=== PATIENT | female | born 1945 | race African-American/Black ===

== ENCOUNTER 2018-03-30 11:23 | Inpatient (IN) | payer MEDICARE, MEDICAID ==
[~2018-03-30] VITALS: Ht 167.6 cm; Wt 105.4 kg
[2018-03-30] VITALS (24 sets, daily range): BP systolic 84–204; BP diastolic 52–131
[~2018-03-30 11:23] MED LIST: ALBUTEROL SULF8.5 GM INH; COUMADIN5 MG PO; COUMADIN7.5 MG PO; HYDROCHLOROTHIA50 MG PO; LOVASTATIN10 MG PO; NEURONTIN400 MG PO; OMEPRAZOLE20 MG PO; OXYBUTYNIN CHLOR5 MG PO; TENORMIN25 MG PO; TESSALON PERLE100 M2 ORAL; ZESTRIL20 MG PO; ZYLOPRIM100 MG PO
[2018-03-30] MEDS ORDERED: Solu-MEDROL 125mg Inj IVP ONE (11:30)
[2018-03-30] MEDS ORDERED: Sodium Chloride 500ML 500 ML IV ONE (11:30)
[2018-03-30] MEDS ORDERED: DiphenhydrAMINE 50mg/ml Inj IVP ONE (11:30)
[2018-03-30 12:13] LABS: BASOPHILS % (AUTO) 0.5 % (0.0-2.0); HEMATOCRIT 39.1 % (37.0-47.0); HEMOGLOBIN 12.7 G/DL (12.0-16.0); LYMPHOCYTES % (AUTO) 51.2 % (20.0-45.0); MEAN CORPUSCULAR VOLUME 91 FL (80-99); MONOCYTES % (AUTO) 5.7 % (1.0-10.0); NEUTROPHILS % (AUTO) 40.6 % (45.0-75.0); PLATELET COUNT 205 K/UL (150-450); RED BLOOD COUNT 4.28 M/UL (4.20-5.40); RED CELL DISTRIBUTION WIDTH 12.7 % (11.6-14.8); WHITE BLOOD COUNT 7.8 K/UL (4.8-10.8)
[2018-03-30 12:18] LABS: ANION GAP 7 mmol/L (5-15); BLOOD UREA NITROGEN 8 mg/dL (7-18); CALCIUM 8.8 MG/DL (8.5-10.1); CARBON DIOXIDE 30 MMOL/L (21-32); CHLORIDE 105 MMOL/L (98-107); CREATININE 0.6 MG/DL (0.55-1.30); POTASSIUM 3.6 MMOL/L (3.5-5.1); SODIUM 142 MMOL/L (136-145)
--- NOTE | 2018-03-30 12:21 | Diagnostic Imaging Report ---
Indication: Dyspnea Comparison: None A single view chest radiograph was obtained. Findings: No definite infiltrate or pulmonary vascular congestion identified. There is a right shoulder prosthesis noted. The heart is enlarged. The aorta is mildly enlarged consistent with atherosclerotic vascular disease. The bones are osteopenic. Impression: No acute disease
[2018-03-30 12:31] LABS: ALANINE AMINOTRANSFERASE 16 U/L (12-78); ALBUMIN 3.7 G/DL (3.4-5.0); ALKALINE PHOSPHATASE 48 U/L (46-116); ASPARTATE AMINO TRANSFERASE 17 U/L (15-37); BILIRUBIN,TOTAL 0.3 MG/DL (0.2-1.0); CKMB < 0.5 NG/ML (0.0-3.6); CREATINE KINASE 53 U/L (26-308)
[2018-03-30] MEDS ORDERED: Propofol 200mg/20ml IV ONE (12:42)
[2018-03-30] MEDS ORDERED: Labetalol 5mg/ml 20ml vial IV PRN (13:00)
[2018-03-30] MEDS ORDERED: LORazepam Inj 2mg/ml 1ml IV PRN (13:00)
--- NOTE | 2018-03-30 13:34 | Emergency Room Report ---
History of Present Illness General Chief Complaint: Allergic Reaction Source: Patient Present Illness HPI 72-year-old female presents ED complaining of tongue swelling. Brought in by EMS. Noted swelling in her tongue which started this morning. Denies any shortness of breath or throat swelling. Denies food or drug allergies. Patient states she takes lisinopril. Has taken it for many years. Denies chest pain or shortness of breath. No other aggravating relieving factors. Denies any other associated symptoms Allergies: Coded Allergies: SULFA (SULFONAMIDE ANTIBIOTICS) (Verified Allergy, Severe, Itching, ) Uncoded Allergies: SULFA (Allergy, Unknown, 03/30/18) Patient History Past Medical History: DM Past Surgical History: none Pertinent Family History: none Social History: Denies: smoking, alcohol use, drug use Now: No Immunizations: UTD Reviewed Nursing Documentation: PMH: Agreed; PSxH: Agreed Nursing Documentation-PMH Hx Cardiac Problems: Yes - A-FIB Hx Hypertension: Yes Hx Diabetes: Yes Review of Systems All Other Systems: negative except mentioned in HPI Physical Exam Vital Signs Date Time Temp Pulse Resp B/P (MAP) Pulse Ox O2 Delivery O2 Flow Rate FiO2 03/30/18 11:06 98.5 56 12 190/116 97 Room Air 98.4 03/30/18 12:37 60 Sp02 EP Interpretation: reviewed, normal General Appearance: no apparent distress, alert, GCS 15, non-toxic, obese Head: normocephalic, atraumatic Eyes: bilateral eye normal inspection, bilateral eye PERRL ENT: hearing grossly normal, normal pharynx, no angioedema, normal voice, TMs + canals normal, other - large tongue Neck: full range of motion, supple/symm/no masses, other - no stridor Respiratory: chest non-tender, lungs clear, normal breath sounds, speaking full sentences Cardiovascular #1: regular rate, rhythm, no edema Cardiovascular #2: 2+ carotid (R), 2+ carotid (L), 2+ radial (R), 2+ radial (L) , 2+ dorsalis pedis (R), 2+ dorsalis pedis (L) Gastrointestinal: normal bowel sounds, non tender, soft, non-distended, no guarding, no rebound Rectal: deferred Genitourinary: normal inspection, no CVA tenderness Musculoskeletal: back normal, gait/station normal, normal range of motion, non- tender Neurologic: alert, oriented x3, responsive, motor strength/tone normal, sensory intact, speech normal Psychiatric: judgement/insight normal, memory normal, mood/affect normal, no suicidal/homicidal ideation Reflexes: 3+ bicep (R), 3+ bicep (L), 3+ tricep (R), 3+ tricep (L), 3+ knee (R) , 3+ knee (L) Skin: normal color, no rash, warm/dry, well hydrated Lymphatic: no adenopathy Procedures Critical Care Time Critical Care Time i. I feel this is a highly complex case requiring extensive working including EKG/Rhythm strip, Xray/CT/US, Blood/urine lab work, repeat exams while in ED, and administration of strong opiates/narcotics for pain control, admission to hospital or close patient follow up. Total time: 30 min bedside evaluation and treatment excludes procedures (EKG). Reason for critical care: angioedema Possible complications: hypotension, hypertension, TN, shock, arrhythmias, metabolic acidosis, end organ damage, respiratory failure. Interventions: labs, ekg, cxr. benedryl. solumedrol. intubatinon. propofol. FFP Course: Patient presenting with tongue swelling. History of lisinopril. No food allergies. Tongue is enlarged. Concern for airway compromise. Decision made with daughter to preemptively intubate the patient. Given RSI meds. Intubated using glidescope. Sedated with propofol. FFP ordered Consultations: nursing staff, EMS, family Performed by: Dr Reed Tolerated well condition = critical j. because of unstable vital signs this patient had a condition that could potentially threaten life or limb. I feel this is a critical patient who required my full attention while patient was considered critical. Total Critical Care Time excluding procedures was greater than 35 minutes Intubation Intubation : Consent: Written Intubation Method: orotracheal Tube Size (cm): 7.5 Medications: Etomidate, Succinylcholine Breath Sounds after Intubation: equal Intubation Complications: no complications Post Intubation Xray: Yes Attempts: One Patient Tolerated: Well Complications: None Medical Decision Making Diagnostic Impression: Primary Impression: Angioedema Qualified Codes: T78.3XXA - Angioneurotic edema, initial encounter ER Course Hospital Course 72 -year-old F presents to ED complaining of tongue swelling. History of hypertension-taking lisinoprio Differential diagnoses include: allergic reaction, angioedema Clinical course Patient placed on stretcher. security monitor. After initial history and physical, I ordered Solu-Medrol, Benadryl, pepcid, IV fluids Labs reviewed - electrolytes okay, no leukocytosis, hemoglobin/hematocrit okay Tongue is incredibly swollen. Concern for airway compromise. Discussed with daughter and patient for elective intubation and they agreed. Patient intubated without complication. propofol given for sedation FFP ordered. case discussed with Dr. Lopez/ Biswas and he agreed to admit the patient to his service for further care and support i. I feel this is a highly complex case requiring extensive working including EKG/Rhythm strip, Xray/CT/US, Blood/urine lab work, repeat exams while in ED, and administration of strong opiates/narcotics for pain control, admission to hospital or close patient follow up. Diagnosis - angioedema admitted to ICU in critical condition Labs Test 03/30/18 11:30 White Blood Count 7.8 K/UL (4.8-10.8) Red Blood Count 4.28 M/UL (4.20-5.40) Hemoglobin 12.7 G/DL (12.0-16.0) Hematocrit 39.1 % (37.0-47.0) Mean Corpuscular Volume 91 FL (80-99) Mean Corpuscular Hemoglobin 29.6 PG (27.0-31.0) Mean Corpuscular Hemoglobin Concent 32.4 G/DL (32.0-36.0) Red Cell Distribution Width 12.7 % (11.6-14.8) Platelet Count 205 K/UL (150-450) Mean Platelet Volume 8.6 FL (6.5-10.1) Neutrophils (%) (Auto) 40.6 % (45.0-75.0) Lymphocytes (%) (Auto) 51.2 % (20.0-45.0) Monocytes (%) (Auto) 5.7 % (1.0-10.0) Eosinophils (%) (Auto) 2.0 % (0.0-3.0) Basophils (%) (Auto) 0.5 % (0.0-2.0) Prothrombin Time 10.6 SEC (9.30-11.50) Prothromb Time International Ratio 1.0 (0.9-1.1) Activated Partial Thromboplast Time 22 SEC (23-33) Sodium Level 142 MMOL/L (136-145) Potassium Level 3.6 MMOL/L (3.5-5.1) Chloride Level 105 MMOL/L (98-107) Carbon Dioxide Level 30 MMOL/L (21-32) Anion Gap 7 mmol/L (5-15) Blood Urea Nitrogen 8 mg/dL (7-18) Creatinine 0.6 MG/DL (0.55-1.30) Estimat Glomerular Filtration Rate mL/min (>60) Glucose Level 112 MG/DL (74-106) Calcium Level 8.8 MG/DL (8.5-10.1) Total Bilirubin 0.3 MG/DL (0.2-1.0) Aspartate Amino Transf (AST/SGOT) 17 U/L (15-37) Alanine Aminotransferase (ALT/SGPT) 16 U/L (12-78) Alkaline Phosphatase 48 U/L (46-116) Total Creatine Kinase 53 U/L (26-308) Creatine Kinase MB < 0.5 NG/ML (0.0-3.6) Creatine Kinase MB Relative Index 0.9 Troponin I 0.000 ng/mL (0.000-0.056) Total Protein 7.3 G/DL (6.4-8.2) Albumin 3.7 G/DL (3.4-5.0) Globulin 3.6 g/dL Albumin/Globulin Ratio 1.0 (1.0-2.7) EKG Diagnostic Results Rate: normal Rhythm: NSR ST Segments: no acute changes ASA given to the pt in ED: No Rhythm Strip Diag. Results EP Interpretation: yes Rhythm: NSR, no PVC's, no ectopy Chest X-Ray Diagnostic Results Chest X-Ray Diagnostic Results : Chest X-Ray Ordered: Yes # of Views/Limited/Complete: 1 View Indication: Shortness of Breath EP Interpretation: Yes Interpretation: no consolidation, no effusion, no pneumothorax, no acute cardiopulmonary disease Impression: No acute disease Electronically Signed by: Electronically signed by Pancho Reed MD Last Vital Signs Date Time Temp Pulse Resp B/P (MAP) Pulse Ox O2 Delivery O2 Flow Rate FiO2 03/30/18 13:12 20 115/93 03/30/18 12:37 180 60 03/30/18 11:24 98.4 97 Room Air 98.4 Status: improved Disposition: ADMITTED INPATIENT Condition: Critical Referrals: NOT CHOSEN IPA/,REFERRING (PCP) Pancho Reed MD Mar 30, 2018 13:34
[2018-03-30] MEDS ORDERED: Enoxaparin 40mg Inj SUBQ SCH (16:00)
[2018-03-30] MEDS: D5NS 1,000 ML IV SCH (16:00)
[2018-03-30] MEDS: LORazepam Inj 2mg/ml 1ml IV PRN (16:05)
--- NOTE | 2018-03-30 17:45 | History and Physical Report ---
DATE OF ADMISSION: 03/30/2018 REASON FOR ADMISSION: 1. Respiratory failure. 2. Angioedema. HISTORY OF PRESENT ILLNESS: The patient is a 72-year-old female who was brought to the emergency room for further evaluation and care, have difficulty breathing with a swollen tongue. Emergently, the ED physician spoke to the family and due to progressive angioedema, the patient was intubated for airway protection and lisinopril discontinued. She was given anti-inflammatory, methylprednisolone along with Benadryl. She is currently mechanically ventilated and no other history could be obtained. Family currently is not at bedside. ALLERGIES: 1. Sulfa. 2. YAYA inhibitors. PAST MEDICAL HISTORY: 1. Obesity. 2. Hypertension. 3. Hyperlipidemia. 4. Neuropathy. 5. GERD. FAMILY HISTORY: Cannot obtain, as the patient is intubated on mechanical ventilation. PAST SURGICAL HISTORY: Cannot obtain as the patient intubated, sedated on mechanical ventilation. HOME MEDICATIONS: Reviewed on medicine reconciliation list. LABORATORY AND DIAGNOSTIC DATA: Labs dated 03/30/2018, white cell count 7.8, hemoglobin 12.7, and platelet count 205. Sodium 142, potassium 3.6, BUN 8, and creatinine 0.6. AST and ALT 17 and 16 respectively. Creatine kinase of 53. Troponin of 0. INR 1.0. PHYSICAL EXAMINATION: VITAL SIGNS: Blood pressure 181/66, respiratory rate 18, pulse 59, and temperature 98.4 degrees. GENERAL: The patient intubated, sedated on mechanical ventilation. HEENT: Conjugate eye gaze. No lymphadenopathy. CARDIOVASCULAR: S1 and S2. No rubs or gallops. PULMONARY: Clear to auscultation bilaterally with upper rhonchi. ABDOMEN: Obese, nondistended and nontender. EXTREMITIES: No edema. Fair pedal pulses. ASSESSMENT AND PLAN: 1. Respiratory failure secondary to angioedema, could be from allergic reaction to YAYA inhibitor. Lisinopril has been discontinued. We will continue Solu-Medrol. The patient intubated on mechanical ventilation to be managed by Dr. Huff, pulmonary Critical Care. 2. Hypertension. We will continue home dose medications while discontinuing lisinopril. We will also add IV and p.o. p.r.n. antihypertensive medications as required. 3. Hyperlipidemia. Continue statin. 4. DVT prophylaxis with Lovenox subcutaneous. At this time, the patient has an INR of 1, but on the medicine reconciliation list, the patient was on Coumadin. We will have to investigate whether or not the patient was on Coumadin chronically and if so why she had not been taking her Coumadin as of late, as her INR was 1.0. Vladimirjoe Biswas MD DR: KATIE JOB#: [id number] CC:
[2018-03-30] MEDS: Solu-MEDROL 40mg Inj IVP SCH (18:32)
[2018-03-30] MEDS ORDERED: Heparin 25,000u/D5W 500ml 500 ML IV SCH ×2 (19:30)
[2018-03-30] MEDS ORDERED: Heparin 5000 units/ml inj IV ONE (19:30)
--- NOTE | 2018-03-30 20:32 | Pulmonolgy Critical Care Note ---
Critical Care - Asmt/Plan Problems: (1) Angioedema (2) Acute respiratory failure (3) Longstanding persistent atrial fibrillation Respiratory: monitor respiratory rate, adjust FIO2 - Inc PEEP to 5, titrate down FiO2, ABG, weaning trial - SBT in am, will check for cuff leak, other - SM 40 IV q6, Fomotidine 20 BID, monitor airway and leak test in am, check C3/C4/ C1ei Cardiac: continue to monitor HR/BP, other - Hold ACei, continue HCTz & BB, IVUH /coumadin bridge Renal: F/U I&O, keep IV fluid, check electrolytes Infectious Disease: other - observe off Abx for signs of a respiratory infection Endocrine: monitor blood sugar Neurologic: keep patient comfortable - Fent gtt RASS -2, PRN VErsed Prophylaxis: Heparin, other - Famotidine Disposition: keep in ICU Notes Reviewed: clerical adjudicator, renal Discussed with: nurses, consultants Critical Care - Objective Last 24 Hour Vital Signs Date Time Temp Pulse Resp B/P (MAP) Pulse Ox O2 Delivery O2 Flow Rate FiO2 03/30/18 19:26 91 15 40 03/30/18 19:00 89 14 120/59 (79) 100 03/30/18 19:00 18 03/30/18 18:43 19 03/30/18 18:30 96 19 106/52 (70) 100 03/30/18 18:00 91 14 84/52 (63) 100 03/30/18 17:50 93 15 60 03/30/18 17:00 93 14 106/67 (80) 100 03/30/18 16:26 14 106/67 (80) 03/30/18 16:00 88 14 97/84 (88) 96 03/30/18 15:29 83 14 60 03/30/18 15:27 Mechanical Ventilator 03/30/18 15:00 60 03/30/18 15:00 98.8 86 14 97/84 (88) 96 98.8 03/30/18 15:00 78 03/30/18 14:01 18 171/111 03/30/18 14:01 98.6 87 18 171/111 100 Mechanical Ventilator 100 98.6 03/30/18 13:56 18 171/111 03/30/18 13:46 98.6 87 17 153/82 100 Mechanical Ventilator 100 98.6 03/30/18 13:46 17 153/82 03/30/18 13:41 17 153/82 03/30/18 13:40 98.6 74 14 171/111 100 Mechanical Ventilator 100 03/30/18 13:31 98.4 86 18 125/93 100 Endotracheal Tube 100 98.4 03/30/18 13:31 18 125/93 03/30/18 13:26 18 125/93 03/30/18 13:20 98.4 84 17 143/68 100 Endotracheal Tube 60 98.4 03/30/18 13:16 98.4 84 14 115/93 100 Mechanical Ventilator 100 98.4 03/30/18 13:16 14 115/93 03/30/18 13:12 20 115/93 03/30/18 13:11 20 115/93 03/30/18 13:01 98.4 75 14 159/91 100 Mechanical Ventilator 100 98.4 03/30/18 13:01 14 159/91 03/30/18 12:56 14 159/91 03/30/18 12:41 18 181/166 03/30/18 12:37 108 18 60 03/30/18 12:30 100 03/30/18 12:20 100 14 191/131 100 Mechanical Ventilator 100 03/30/18 12:15 98.4 72 12 168/80 94 Room Air 98.4 03/30/18 11:24 98.4 59 12 204/80 97 Room Air 98.4 03/30/18 11:06 98.5 56 12 190/116 97 Room Air 98.4 Status: awake, other - intubated Condition: improving HEENT: atraumatic, normocephalic Lungs: clear Heart: HR/BP stable Abdomen: soft, non-tender, active bowel sounds Extremities: no C/C/E Critical Care - Subjective ROS Limited/Unobtainable: Yes ICU Day: 1 Intubation Day: 1 Interval Events: 72 F h/o HTN, pAF on A/C, ACEi use BIB EMS with tongue swelling & angioedema, intubated in ER, transferred to ICU in stable condition. Stable on vent. Awake on Fentanyl gtt. Denies any distress. Condition: improving IV Access: peripheral EKG Rhythm: Sinus Rhythm FI02: 40 Vent Support Breath Rate: 14 Vent Support Mode: AC Vent Tidal Volume: 550 Sputum Amount: Scant PIP: 24 Fluids: D5NS@75 Subjective: Intubated, awake, denies complaints ET-Tube: 7.5 ET Position: 22 Labs: Laboratory Tests Test 03/30/18 11:30 03/30/18 15:44 White Blood Count 7.8 K/UL (4.8-10.8) Red Blood Count 4.28 M/UL (4.20-5.40) Hemoglobin 12.7 G/DL (12.0-16.0) Hematocrit 39.1 % (37.0-47.0) Mean Corpuscular Volume 91 FL (80-99) Mean Corpuscular Hemoglobin 29.6 PG (27.0-31.0) Mean Corpuscular Hemoglobin Concent 32.4 G/DL (32.0-36.0) Red Cell Distribution Width 12.7 % (11.6-14.8) Platelet Count 205 K/UL (150-450) Mean Platelet Volume 8.6 FL (6.5-10.1) Neutrophils (%) (Auto) 40.6 % (45.0-75.0) L Lymphocytes (%) (Auto) 51.2 % (20.0-45.0) H Monocytes (%) (Auto) 5.7 % (1.0-10.0) Eosinophils (%) (Auto) 2.0 % (0.0-3.0) Basophils (%) (Auto) 0.5 % (0.0-2.0) Prothrombin Time 10.6 SEC (9.30-11.50) Prothromb Time International Ratio 1.0 (0.9-1.1) Activated Partial Thromboplast Time 22 SEC (23-33) L Sodium Level 142 MMOL/L (136-145) Potassium Level 3.6 MMOL/L (3.5-5.1) Chloride Level 105 MMOL/L (98-107) Carbon Dioxide Level 30 MMOL/L (21-32) Anion Gap 7 mmol/L (5-15) Blood Urea Nitrogen 8 mg/dL (7-18) Creatinine 0.6 MG/DL (0.55-1.30) Estimat Glomerular Filtration Rate mL/min (>60) Glucose Level 112 MG/DL (74-106) H Calcium Level 8.8 MG/DL (8.5-10.1) Total Bilirubin 0.3 MG/DL (0.2-1.0) Aspartate Amino Transf (AST/SGOT) 17 U/L (15-37) Alanine Aminotransferase (ALT/SGPT) 16 U/L (12-78) Alkaline Phosphatase 48 U/L (46-116) Total Creatine Kinase 53 U/L (26-308) Creatine Kinase MB < 0.5 NG/ML (0.0-3.6) Creatine Kinase MB Relative Index 0.9 Troponin I 0.000 ng/mL (0.000-0.056) Total Protein 7.3 G/DL (6.4-8.2) Albumin 3.7 G/DL (3.4-5.0) Globulin 3.6 g/dL Albumin/Globulin Ratio 1.0 (1.0-2.7) Triglycerides Level 144 MG/DL (30-150) Arterial Blood pH 7.436 (7.350-7.450) Arterial Blood Partial Pressure CO2 41.5 mmHg (35.0-45.0) Arterial Blood Partial Pressure O2 251.2 mmHg (75.0-100.0) H Arterial Blood HCO3 27.3 mmol/L (22.0-26.0) H Arterial Blood Oxygen Saturation 99.4 % (92.0-98.0) H Arterial Blood Base Excess 2.8 Jacobo Test Positive Alfonso Huff MD Mar 30, 2018 20:32
[2018-03-30] MEDS: Atorvastatin 20mg tab ORAL SCH (21:57)
--- NOTE | 2018-03-30 23:25 | Diagnostic Imaging Report ---
PROCEDURE: FILM ABDOMEN HISTORY: 72-year-old female with tube placement. COMPARISON: None TECHNIQUE: Frontal view of the abdomen was obtained. FINDINGS: Limited by positioning. Presumed esophageal catheter overlies the expected location of the stomach. 2 catheters overlie the right upper quadrant. Air-distended small and large bowel loops are likely due to ileus. Degenerative changes of the spine and hips. IMPRESSION: Presumed esophageal catheter overlies the expected location of the stomach. Air-distended small and large bowel loops are likely due to ileus.
[2018-03-31] VITALS (32 sets, daily range): BP systolic 99–175; BP diastolic 25–108
[2018-03-31] MEDS: Solu-MEDROL 40mg Inj IVP SCH ×4 (00:30→16:56)
[2018-03-31] MEDS: D5NS 1,000 ML IV SCH ×2 (04:17→16:57)
[2018-03-31] MEDS: Heparin 25,000u/D5W 500ml 500 ML IV SCH ×3 (05:25→12:48)
[2018-03-31 06:00] LABS: HEMATOCRIT 36.7 % (37.0-47.0); MEAN CORPUSCULAR VOLUME 90 FL (80-99); PLATELET COUNT 203 K/UL (150-450); RED BLOOD COUNT 4.08 M/UL (4.20-5.40); RED CELL DISTRIBUTION WIDTH 12.2 % (11.6-14.8); WHITE BLOOD COUNT 12.9 K/UL (4.8-10.8)
[2018-03-31 06:13] LABS: ANION GAP 9 mmol/L (5-15); BLOOD UREA NITROGEN 11 mg/dL (7-18); CARBON DIOXIDE 27 MMOL/L (21-32); CHLORIDE 106 MMOL/L (98-107); CREATININE 0.7 MG/DL (0.55-1.30); POTASSIUM 3.3 MMOL/L (3.5-5.1); SODIUM 142 MMOL/L (136-145)
--- NOTE | 2018-03-31 07:54 | Nephrology Progress Note ---
Assessment/Plan Assessment/Plan 1. Resp Failure - angioedema from YAYA-I - YAYA-I stopped, steroids - much improved. Likley to be extubated today 2. Chronic AFib with RVR- restart coumadin. On heaprin gtt 3. HTN- stable 4. DVT Prophylaxsis- on anticoagulation Subjective Date patient seen: Mar 31, 2018 Time patient seen: 07:51 ROS Limited/Unobtainable: No Allergies: Coded Allergies: SULFA (SULFONAMIDE ANTIBIOTICS) (Verified Allergy, Severe, Itching, ) Uncoded Allergies: SULFA (Allergy, Unknown, 03/30/18) All Systems: reviewed and negative except above Subjective Patient awake and tongue much less swollen Objective Last 24 Hour Vital Signs Date Time Temp Pulse Resp B/P (MAP) Pulse Ox O2 Delivery O2 Flow Rate FiO2 03/31/18 06:40 60 14 30 03/31/18 06:30 56 14 151/75 (100) 99 03/31/18 06:00 49 14 132/71 (91) 99 03/31/18 06:00 14 03/31/18 05:30 51 15 132/71 (91) 99 03/31/18 05:14 62 15 30 03/31/18 05:00 58 14 132/71 (91) 98 03/31/18 05:00 14 03/31/18 04:30 56 14 127/71 (89) 98 03/31/18 04:00 Mechanical Ventilator 03/31/18 04:00 50 03/31/18 04:00 17 03/31/18 04:00 98.4 68 16 140/105 (117) 98 98.4 03/31/18 04:00 30 03/31/18 03:30 64 16 132/96 (108) 99 03/31/18 03:16 86 14 30 03/31/18 03:00 78 16 135/72 (93) 99 03/31/18 03:00 14 03/31/18 02:30 63 14 135/66 (89) 99 03/31/18 02:00 68 14 154/88 (110) 98 03/31/18 02:00 15 03/31/18 01:30 75 14 135/66 (89) 99 03/31/18 01:00 64 14 137/71 (93) 98 03/31/18 01:00 14 03/31/18 00:35 82 14 30 03/31/18 00:30 59 14 101/75 (84) 99 03/31/18 00:26 14 18 00:00 61 03/31/18 00:00 98.0 66 14 117/63 (81) 98 98.0 03/31/18 00:00 14 03/31/18 00:00 Mechanical Ventilator 03/31/18 00:00 30 03/30/18 23:00 59 14 119/54 (75) 99 18 23:00 14 03/30/18 22:56 59 14 30 03/30/18 22:30 56 14 108/57 (74) 99 03/30/18 22:00 63 14 118/54 (75) 99 18 22:00 14 03/30/18 21:30 79 14 127/62 (83) 98 03/30/18 21:16 61 14 30 03/30/18 21:00 79 17 135/88 (104) 100 03/30/18 21:00 17 03/30/18 20:30 78 14 131/79 (96) 99 18 20:00 100.4 86 15 120/59 (79) 99 100.4 03/30/18 20:00 86 03/30/18 20:00 30 03/30/18 20:00 Mechanical Ventilator 03/30/18 20:00 15 18 19:30 94 14 120/59 (79) 99 03/30/18 19:26 91 15 40 03/30/18 19:00 89 14 120/59 (79) 100 18 19:00 18 18 18:43 19 18 18:30 96 19 106/52 (70) 100 7/18 18:00 91 14 84/52 (63) 100 03/30/18 17:50 93 15 60 18 17:00 93 14 106/67 (80) 100 18 16:26 14 106/67 (80) 18 16:00 88 14 97/84 (88) 96 18 15:29 83 14 60 18 15:27 Mechanical Ventilator 03/30/18 15:00 60 7/6/18 15:00 98.8 86 14 97/84 (88) 96 98.8 03/30/18 15:00 78 03/30/18 14:01 18 171/111 03/30/18 14:01 98.6 87 18 171/111 100 Mechanical Ventilator 100 98.6 03/30/18 13:56 18 171/111 03/30/18 13:46 98.6 87 17 153/82 100 Mechanical Ventilator 100 98.6 03/30/18 13:46 17 153/82 18 13:41 17 153/82 18 13:40 98.6 74 14 171/111 100 Mechanical Ventilator 100 03/30/18 13:31 98.4 86 18 125/93 100 Endotracheal Tube 100 98.4 03/30/18 13:31 18 125/93 03/30/18 13:26 18 125/93 03/30/18 13:20 98.4 84 17 143/68 100 Endotracheal Tube 60 98.4 03/30/18 13:16 98.4 84 14 115/93 100 Mechanical Ventilator 100 98.4 03/30/18 13:16 14 115/93 03/30/18 13:12 20 115/93 03/30/18 13:11 20 115/93 03/30/18 13:01 98.4 75 14 159/91 100 Mechanical Ventilator 100 98.4 03/30/18 13:01 14 159/91 03/30/18 12:56 14 159/91 03/30/18 12:41 18 181/166 03/30/18 12:37 108 18 60 03/30/18 12:30 100 03/30/18 12:20 100 14 191/131 100 Mechanical Ventilator 100 03/30/18 12:15 98.4 72 12 168/80 94 Room Air 98.4 03/30/18 11:24 98.4 59 12 204/80 97 Room Air 98.4 03/30/18 11:06 98.5 56 12 190/116 97 Room Air 98.4 Intake and Output 03/30/18 03/31/18 19:00 07:00 Intake Total 775 ml 1149.047 ml Output Total 0 ml Balance 775 ml 1149.047 ml Intake Oral 0 ml 0 ml IV Total 735 ml 1119.047 ml Other 40 ml 30 ml Output Urine Total 0 ml # Voids 2 Laboratory Tests 03/30/18 11:30: White Blood Count 7.8, Red Blood Count 4.28, Hemoglobin 12.7, Hematocrit 39.1, Mean Corpuscular Volume 91, Mean Corpuscular Hemoglobin 29.6, Mean Corpuscular Hemoglobin Concent 32.4, Red Cell Distribution Width 12.7, Platelet Count 205, Mean Platelet Volume 8.6, Neutrophils (%) (Auto) 40.6L, Lymphocytes (%) (Auto) 51.2H, Monocytes (%) (Auto) 5.7, Eosinophils (%) (Auto) 2.0, Basophils (%) (Auto ) 0.5, Prothrombin Time 10.6, Prothromb Time International Ratio 1.0, Activated Partial Thromboplast Time 22L, Sodium Level 142, Potassium Level 3.6, Chloride Level 105, Carbon Dioxide Level 30, Anion Gap 7, Blood Urea Nitrogen 8, Creatinine 0.6, Estimat Glomerular Filtration Rate , Glucose Level 112H, Calcium Level 8.8, Total Bilirubin 0.3, Aspartate Amino Transf (AST/SGOT) 17, Alanine Aminotransferase (ALT/SGPT) 16, Alkaline Phosphatase 48, Total Creatine Kinase 53, Creatine Kinase MB < 0.5, Creatine Kinase MB Relative Index 0.9, Troponin I 0.000, Total Protein 7.3, Albumin 3.7, Globulin 3.6, Albumin/ Globulin Ratio 1.0, Triglycerides Level 144 03/30/18 15:44: Arterial Blood pH 7.436, Arterial Blood Partial Pressure CO2 41.5, Arterial Blood Partial Pressure O2 251.2H, Arterial Blood HCO3 27.3H, Arterial Blood Oxygen Saturation 99.4H, Arterial Blood Base Excess 2.8, Jacobo Test Positive 03/31/18 02:15: Activated Partial Thromboplast Time 143H, Circulating Immune Complexes [Pending] , Complement C2 [Pending], Complement C3 [Pending], Complement C4 [Pending], Total Complement (CH50) [Pending] 03/31/18 05:03: White Blood Count 12.9#H, Red Blood Count 4.08L, Hemoglobin 12.0, Hematocrit 36.7L, Mean Corpuscular Volume 90, Mean Corpuscular Hemoglobin 29.4, Mean Corpuscular Hemoglobin Concent 32.7, Red Cell Distribution Width 12.2, Platelet Count 203, Mean Platelet Volume 8.3, Neutrophils (%) (Auto) , Lymphocytes (%) ( Auto) , Monocytes (%) (Auto) , Eosinophils (%) (Auto) , Basophils (%) (Auto) , Sodium Level 142, Potassium Level 3.3L, Chloride Level 106, Carbon Dioxide Level 27, Anion Gap 9, Blood Urea Nitrogen 11, Creatinine 0.7, Estimat Glomerular Filtration Rate , Glucose Level 197H, Calcium Level 9.0, Neutrophils % (Manual) [Pending], Lymphocytes % (Manual) [Pending], Platelet Estimate [ Pending], Platelet Morphology [Pending] Height (Feet): 5 Height (Inches): 6.00 Weight (Pounds): 238 General Appearance: no apparent distress, alert EENT: normal ENT inspection Neck: normal alignment, supple Cardiovascular: normal rate, regular rhythm Respiratory/Chest: lungs clear, normal breath sounds Abdomen: non tender, soft Edema: no edema noted Arm (L), no edema noted Arm (R), no edema noted Leg (L), no edema noted Leg (R), no edema noted Pedal (L), no edema noted Pedal (R), no edema noted Generalized Vladimir Biswas M.D. Mar 31, 2018 07:54
--- NOTE | 2018-03-31 08:47 | Pulmonolgy Critical Care Note ---
Critical Care - Asmt/Plan Problems: (1) Angioedema (2) Acute respiratory failure (3) Longstanding persistent atrial fibrillation Respiratory: other - Continue ventilatory support, continue steroids @ current dose, continue famotodine, repeat cuff leak later today, extubate if passes Cardiac: continue to monitor HR/BP, other - pacer pads @ bedside, continue A/C , hold greta blocking agents, EP eval Renal: F/U I&O, check electrolytes Gastrointestinal: other - If unable to extubate later today will start feeds Neurologic: keep patient comfortable - Fent gtt, PRN Versed Prophylaxis: Heparin, other - Famotodine Disposition: keep in ICU Time Spent (Minutes): 40 Notes 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, 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 Discussed with: nurses, consultants Critical Care - Objective Last 24 Hour Vital Signs Date Time Temp Pulse Resp B/P (MAP) Pulse Ox O2 Delivery O2 Flow Rate FiO2 03/31/18 08:00 98.5 94 21 129/37 (67) 100 98.5 03/31/18 08:00 30 03/31/18 07:30 95 16 123/42 (69) 100 03/31/18 07:00 95 13 99/44 (62) 100 03/31/18 06:40 60 14 30 03/31/18 06:30 56 14 151/75 (100) 99 03/31/18 06:00 49 14 132/71 (91) 99 03/31/18 06:00 14 03/31/18 05:30 51 15 132/71 (91) 99 03/31/18 05:14 62 15 30 03/31/18 05:00 58 14 132/71 (91) 98 03/31/18 05:00 14 03/31/18 04:30 56 14 127/71 (89) 98 03/31/18 04:00 Mechanical Ventilator 03/31/18 04:00 50 03/31/18 04:00 17 03/31/18 04:00 98.4 68 16 140/105 (117) 98 98.4 03/31/18 04:00 30 03/31/18 03:30 64 16 132/96 (108) 99 03/31/18 03:16 86 14 30 03/31/18 03:00 78 16 135/72 (93) 99 03/31/18 03:00 14 7/7/18 02:30 63 14 135/66 (89) 99 18 02:00 68 14 154/88 (110) 98 03/31/18 02:00 15 03/31/18 01:30 75 14 135/66 (89) 99 18 01:00 64 14 137/71 (93) 98 03/31/18 01:00 14 03/31/18 00:35 82 14 30 03/31/18 00:30 59 14 101/75 (84) 99 03/31/18 00:26 14 03/31/18 00:00 61 03/31/18 00:00 98.0 66 14 117/63 (81) 98 98.0 03/31/18 00:00 14 03/31/18 00:00 Mechanical Ventilator 03/31/18 00:00 30 03/30/18 23:00 59 14 119/54 (75) 99 03/30/18 23:00 14 03/30/18 22:56 59 14 30 03/30/18 22:30 56 14 108/57 (74) 99 03/30/18 22:00 63 14 118/54 (75) 99 18 22:00 14 03/30/18 21:30 79 14 127/62 (83) 98 03/30/18 21:16 61 14 30 03/30/18 21:00 79 17 135/88 (104) 100 03/30/18 21:00 17 03/30/18 20:30 78 14 131/79 (96) 99 18 20:00 100.4 86 15 120/59 (79) 99 100.4 03/30/18 20:00 86 18 20:00 30 18 20:00 Mechanical Ventilator 03/30/18 20:00 15 18 19:30 94 14 120/59 (79) 99 18 19:26 91 15 40 18 19:00 89 14 120/59 (79) 100 03/30/18 19:00 18 18 18:43 19 18 18:30 96 19 106/52 (70) 100 18 18:00 91 14 84/52 (63) 100 18 17:50 93 15 60 7/6/18 17:00 93 14 106/67 (80) 100 18 16:26 14 106/67 (80) 18 16:00 88 14 97/84 (88) 96 18 15:29 83 14 60 18 15:27 Mechanical Ventilator 03/30/18 15:00 60 18 15:00 98.8 86 14 97/84 (88) 96 98.8 03/30/18 15:00 78 03/30/18 14:01 18 171/111 03/30/18 14:01 98.6 87 18 171/111 100 Mechanical Ventilator 100 98.6 03/30/18 13:56 18 171/111 03/30/18 13:46 98.6 87 17 153/82 100 Mechanical Ventilator 100 98.6 03/30/18 13:46 17 153/82 18 13:41 17 153/82 18 13:40 98.6 74 14 171/111 100 Mechanical Ventilator 100 03/30/18 13:31 98.4 86 18 125/93 100 Endotracheal Tube 100 98.4 03/30/18 13:31 18 125/93 18 13:26 18 125/93 18 13:20 98.4 84 17 143/68 100 Endotracheal Tube 60 98.4 03/30/18 13:16 98.4 84 14 115/93 100 Mechanical Ventilator 100 98.4 18 13:16 14 115/93 18 13:12 20 115/93 18 13:11 20 115/93 18 13:01 98.4 75 14 159/91 100 Mechanical Ventilator 100 98.4 03/30/18 13:01 14 159/91 18 12:56 14 159/91 18 12:41 18 181/166 03/30/18 12:37 108 18 60 03/30/18 12:30 100 03/30/18 12:20 100 14 191/131 100 Mechanical Ventilator 100 03/30/18 12:15 98.4 72 12 168/80 94 Room Air 98.4 03/30/18 11:24 98.4 59 12 204/80 97 Room Air 98.4 03/30/18 11:06 98.5 56 12 190/116 97 Room Air 98.4 Status: awake Condition: improving HEENT: atraumatic, normocephalic Lungs: clear Heart: HR/BP stable Abdomen: soft, non-tender, active bowel sounds Extremities: no C/C/E Critical Care - Subjective ROS Limited/Unobtainable: Yes ICU Day: 2 Intubation Day: 2 Interval Events: Doing well, no cuff leak Wants tube out Condition: improving IV Access: peripheral EKG Rhythm: Sinus Bradycardia FI02: 30 Vent Support Breath Rate: 14 Vent Support Mode: AC Vent Tidal Volume: 550 Sputum Amount: Small PEEP: 5.0 PIP: 28 Fluids: D5NS@75 Drips: Fent gtt I&O: Intake and Output 03/30/18 03/31/18 19:00 07:00 Intake Total 775 ml 1179.047 ml Output Total 0 ml Balance 775 ml 1179.047 ml Intake Oral 0 ml 0 ml IV Total 735 ml 1119.047 ml Other 40 ml 60 ml Output Urine Total 0 ml # Voids 2 Subjective: Intubated, awake, denies complaints ET-Tube: 7.5 ET Position: 24 Labs: Laboratory Tests Test 03/30/18 11:30 03/30/18 15:44 03/31/18 02:15 03/31/18 05:03 White Blood Count 7.8 K/UL (4.8-10.8) 12.9 K/UL (4.8-10.8) #H Red Blood Count 4.28 M/UL (4.20-5.40) 4.08 M/UL (4.20-5.40) L Hemoglobin 12.7 G/DL (12.0-16.0) 12.0 G/DL (12.0-16.0) Hematocrit 39.1 % (37.0-47.0) 36.7 % (37.0-47.0) L Mean Corpuscular Volume 91 FL (80-99) 90 FL (80-99) Mean Corpuscular Hemoglobin 29.6 PG (27.0-31.0) 29.4 PG (27.0-31.0) Mean Corpuscular Hemoglobin Concent 32.4 G/DL (32.0-36.0) 32.7 G/DL (32.0-36.0) Red Cell Distribution Width 12.7 % (11.6-14.8) 12.2 % (11.6-14.8) Platelet Count 205 K/UL (150-450) 203 K/UL (150-450) Mean Platelet Volume 8.6 FL (6.5-10.1) 8.3 FL (6.5-10.1) Neutrophils (%) (Auto) 40.6 % (45.0-75.0) L % (45.0-75.0) Lymphocytes (%) (Auto) 51.2 % (20.0-45.0) H % (20.0-45.0) Monocytes (%) (Auto) 5.7 % (1.0-10.0) % (1.0-10.0) Eosinophils (%) (Auto) 2.0 % (0.0-3.0) % (0.0-3.0) Basophils (%) (Auto) 0.5 % (0.0-2.0) % (0.0-2.0) Prothrombin Time 10.6 SEC (9.30-11.50) Prothromb Time International Ratio 1.0 (0.9-1.1) Activated Partial Thromboplast Time 22 SEC (23-33) L 143 SEC (23-33) H Sodium Level 142 MMOL/L (136-145) 142 MMOL/L (136-145) Potassium Level 3.6 MMOL/L (3.5-5.1) 3.3 MMOL/L (3.5-5.1) L Chloride Level 105 MMOL/L (98-107) 106 MMOL/L (98-107) Carbon Dioxide Level 30 MMOL/L (21-32) 27 MMOL/L (21-32) Anion Gap 7 mmol/L (5-15) 9 mmol/L (5-15) Blood Urea Nitrogen 8 mg/dL (7-18) 11 mg/dL (7-18) Creatinine 0.6 MG/DL (0.55-1.30) 0.7 MG/DL (0.55-1.30) Estimat Glomerular Filtration Rate mL/min (>60) mL/min (>60) Glucose Level 112 MG/DL (74-106) H 197 MG/DL (74-106) H Calcium Level 8.8 MG/DL (8.5-10.1) 9.0 MG/DL (8.5-10.1) Total Bilirubin 0.3 MG/DL (0.2-1.0) Aspartate Amino Transf (AST/SGOT) 17 U/L (15-37) Alanine Aminotransferase (ALT/SGPT) 16 U/L (12-78) Alkaline Phosphatase 48 U/L (46-116) Total Creatine Kinase 53 U/L (26-308) Creatine Kinase MB < 0.5 NG/ML (0.0-3.6) Creatine Kinase MB Relative Index 0.9 Troponin I 0.000 ng/mL (0.000-0.056) Total Protein 7.3 G/DL (6.4-8.2) Albumin 3.7 G/DL (3.4-5.0) Globulin 3.6 g/dL Albumin/Globulin Ratio 1.0 (1.0-2.7) Triglycerides Level 144 MG/DL (30-150) Arterial Blood pH 7.436 (7.350-7.450) Arterial Blood Partial Pressure CO2 41.5 mmHg (35.0-45.0) Arterial Blood Partial Pressure O2 251.2 mmHg (75.0-100.0) H Arterial Blood HCO3 27.3 mmol/L (22.0-26.0) H Arterial Blood Oxygen Saturation 99.4 % (92.0-98.0) H Arterial Blood Base Excess 2.8 Jacobo Test Positive Circulating Immune Complexes Pending Complement C2 Pending Complement C3 Pending Complement C4 Pending Total Complement (CH50) Pending Neutrophils % (Manual) Pending Lymphocytes % (Manual) Pending Platelet Estimate Pending Platelet Morphology Pending Alfonso Huff MD Mar 31, 2018 08:47
[2018-03-31] MEDS ORDERED: D5NS 1000ml IV ONE (08:58)
[2018-03-31] MEDS ORDERED: Enoxaparin 40mg Inj SUBQ SCH (09:00)
[2018-03-31] MEDS: Atenolol 25mg tab ORAL SCH (09:26)
[2018-03-31] MEDS: Allopurinol 100mg Tab ORAL SCH (09:26)
[2018-03-31] MEDS: LORazepam Inj 2mg/ml 1ml IV PRN ×2 (10:43→19:59)
--- NOTE | 2018-03-31 14:21 | Cardiac Electrophysiology PN ---
Subjective Subjective [id number] Objective Last 24 Hour Vital Signs Date Time Temp Pulse Resp B/P (MAP) Pulse Ox O2 Delivery O2 Flow Rate FiO2 03/31/18 12:00 100 03/31/18 12:00 73 03/31/18 12:00 Room Air 03/31/18 12:00 98.8 89 11 141/31 (67) 100 98.8 03/31/18 11:00 94 12 166/37 (80) 100 03/31/18 10:43 59 14 30 03/31/18 10:00 99 14 174/68 (103) 100 03/31/18 09:26 69 162/82 03/31/18 09:05 63 14 30 03/31/18 09:00 96 14 164/37 (79) 100 03/31/18 08:00 98.5 94 21 129/37 (67) 100 98.5 03/31/18 08:00 30 03/31/18 08:00 69 03/31/18 08:00 Mechanical Ventilator 03/31/18 07:30 95 16 123/42 (69) 100 03/31/18 07:00 95 13 99/44 (62) 100 03/31/18 06:40 60 14 30 03/31/18 06:30 56 14 151/75 (100) 99 03/31/18 06:00 49 14 132/71 (91) 99 03/31/18 06:00 14 03/31/18 05:30 51 15 132/71 (91) 99 03/31/18 05:14 62 15 30 03/31/18 05:00 58 14 132/71 (91) 98 03/31/18 05:00 14 03/31/18 04:30 56 14 127/71 (89) 98 03/31/18 04:00 Mechanical Ventilator 03/31/18 04:00 50 03/31/18 04:00 17 03/31/18 04:00 98.4 68 16 140/105 (117) 98 98.4 03/31/18 04:00 30 03/31/18 03:30 64 16 132/96 (108) 99 03/31/18 03:16 86 14 30 03/31/18 03:00 78 16 135/72 (93) 99 03/31/18 03:00 14 03/31/18 02:30 63 14 135/66 (89) 99 18 02:00 68 14 154/88 (110) 98 18 02:00 15 18 01:30 75 14 135/66 (89) 99 18 01:00 64 14 137/71 (93) 98 18 01:00 14 03/31/18 00:35 82 14 30 03/31/18 00:30 59 14 101/75 (84) 99 18 00:26 14 03/31/18 00:00 61 03/31/18 00:00 98.0 66 14 117/63 (81) 98 98.0 03/31/18 00:00 14 03/31/18 00:00 Mechanical Ventilator 03/31/18 00:00 30 03/30/18 23:00 59 14 119/54 (75) 99 03/30/18 23:00 14 03/30/18 22:56 59 14 30 03/30/18 22:30 56 14 108/57 (74) 99 18 22:00 63 14 118/54 (75) 99 03/30/18 22:00 14 03/30/18 21:30 79 14 127/62 (83) 98 18 21:16 61 14 30 03/30/18 21:00 79 17 135/88 (104) 100 03/30/18 21:00 17 18 20:30 78 14 131/79 (96) 99 03/30/18 20:00 100.4 86 15 120/59 (79) 99 100.4 18 20:00 86 18 20:00 30 18 20:00 Mechanical Ventilator 03/30/18 20:00 15 18 19:30 94 14 120/59 (79) 99 /6/18 19:26 91 15 40 7//18 19:00 89 14 120/59 (79) 100 7//18 19:00 18 7//18 18:43 19 7//18 18:30 96 19 106/52 (70) 100 7/6/18 18:00 91 14 84/52 (63) 100 03/30/18 17:50 93 15 60 /18 17:00 93 14 106/67 (80) 100 03/30/18 16:26 14 106/67 (80) 03/30/18 16:00 88 14 97/84 (88) 96 03/30/18 15:29 83 14 60 03/30/18 15:27 Mechanical Ventilator 03/30/18 15:00 60 03/30/18 15:00 98.8 86 14 97/84 (88) 96 98.8 03/30/18 15:00 78 Intake and Output 03/30/18 03/31/18 19:00 07:00 Intake Total 775 ml 1179.047 ml Output Total 0 ml Balance 775 ml 1179.047 ml Intake Oral 0 ml 0 ml IV Total 735 ml 1119.047 ml Other 40 ml 60 ml Output Urine Total 0 ml # Voids 2 Laboratory Tests Test 03/30/18 15:44 03/31/18 02:15 03/31/18 05:03 03/31/18 10:00 Arterial Blood pH 7.436 (7.350-7.450) Arterial Blood Partial Pressure CO2 41.5 mmHg (35.0-45.0) Arterial Blood Partial Pressure O2 251.2 mmHg (75.0-100.0) H Arterial Blood HCO3 27.3 mmol/L (22.0-26.0) H Arterial Blood Oxygen Saturation 99.4 % (92.0-98.0) H Arterial Blood Base Excess 2.8 Jacobo Test Positive Activated Partial Thromboplast Time 143 SEC (23-33) H > 150 SEC (23-33) *H Circulating Immune Complexes Pending Complement C2 Pending Complement C3 Pending Complement C4 Pending Total Complement (CH50) Pending White Blood Count 12.9 K/UL (4.8-10.8) #H Red Blood Count 4.08 M/UL (4.20-5.40) L Hemoglobin 12.0 G/DL (12.0-16.0) Hematocrit 36.7 % (37.0-47.0) L Mean Corpuscular Volume 90 FL (80-99) Mean Corpuscular Hemoglobin 29.4 PG (27.0-31.0) Mean Corpuscular Hemoglobin Concent 32.7 G/DL (32.0-36.0) Red Cell Distribution Width 12.2 % (11.6-14.8) Platelet Count 203 K/UL (150-450) Mean Platelet Volume 8.3 FL (6.5-10.1) Neutrophils (%) (Auto) % (45.0-75.0) Lymphocytes (%) (Auto) % (20.0-45.0) Monocytes (%) (Auto) % (1.0-10.0) Eosinophils (%) (Auto) % (0.0-3.0) Basophils (%) (Auto) % (0.0-2.0) Differential Total Cells Counted 100 Neutrophils % (Manual) 89 % (45-75) H Lymphocytes % (Manual) 7 % (20-45) L Monocytes % (Manual) 4 % (1-10) Eosinophils % (Manual) 0 % (0-3) Basophils % (Manual) 0 % (0-2) Band Neutrophils 0 % (0-8) Platelet Estimate Adequate Platelet Morphology Normal Red Blood Cell Morphology Normal Sodium Level 142 MMOL/L (136-145) Potassium Level 3.3 MMOL/L (3.5-5.1) L Chloride Level 106 MMOL/L (98-107) Carbon Dioxide Level 27 MMOL/L (21-32) Anion Gap 9 mmol/L (5-15) Blood Urea Nitrogen 11 mg/dL (7-18) Creatinine 0.7 MG/DL (0.55-1.30) Estimat Glomerular Filtration Rate mL/min (>60) Glucose Level 197 MG/DL (74-106) H Calcium Level 9.0 MG/DL (8.5-10.1) Arvin Chen MD Mar 31, 2018 14:21
--- NOTE | 2018-03-31 14:49 | Infectious Diseases Prog Note ---
Assessment/Plan Problems: (1) Angioedema Assessment & Plan: isolated rule out infectious etiology , will send blood culture and CRP/ESR , await complements level , avoid causes such as YAYA INH (2) Acute respiratory failure Assessment & Plan: due to the above , intubated , S/P self extubation , monitor CXR , pulmonary is following (3) Bronchitis Assessment & Plan: due to angioedema , continue nebulizers as needed (4) Longstanding persistent atrial fibrillation Assessment & Plan: continue rate controlling meds , cardiology is following Subjective Allergies: Coded Allergies: SULFA (SULFONAMIDE ANTIBIOTICS) (Verified Allergy, Severe, Itching, ) Uncoded Allergies: SULFA (Allergy, Unknown, 03/30/18) Objective Vital Signs Last 24 Hour Vital Signs Date Time Temp Pulse Resp B/P (MAP) Pulse Ox O2 Delivery O2 Flow Rate FiO2 03/31/18 12:00 100 03/31/18 12:00 73 03/31/18 12:00 Room Air 03/31/18 12:00 98.8 89 11 141/31 (67) 100 98.8 03/31/18 11:00 94 12 166/37 (80) 100 03/31/18 10:43 59 14 30 03/31/18 10:00 99 14 174/68 (103) 100 03/31/18 09:26 69 162/82 03/31/18 09:05 63 14 30 03/31/18 09:00 96 14 164/37 (79) 100 03/31/18 08:00 98.5 94 21 129/37 (67) 100 98.5 03/31/18 08:00 30 03/31/18 08:00 69 03/31/18 08:00 Mechanical Ventilator 03/31/18 07:30 95 16 123/42 (69) 100 03/31/18 07:00 95 13 99/44 (62) 100 03/31/18 06:40 60 14 30 03/31/18 06:30 56 14 151/75 (100) 99 03/31/18 06:00 49 14 132/71 (91) 99 03/31/18 06:00 14 03/31/18 05:30 51 15 132/71 (91) 99 03/31/18 05:14 62 15 30 03/31/18 05:00 58 14 132/71 (91) 98 03/31/18 05:00 14 03/31/18 04:30 56 14 127/71 (89) 98 03/31/18 04:00 Mechanical Ventilator 03/31/18 04:00 50 03/31/18 04:00 17 03/31/18 04:00 98.4 68 16 140/105 (117) 98 98.4 03/31/18 04:00 30 03/31/18 03:30 64 16 132/96 (108) 99 03/31/18 03:16 86 14 30 03/31/18 03:00 78 16 135/72 (93) 99 03/31/18 03:00 14 03/31/18 02:30 63 14 135/66 (89) 99 03/31/18 02:00 68 14 154/88 (110) 98 03/31/18 02:00 15 03/31/18 01:30 75 14 135/66 (89) 99 03/31/18 01:00 64 14 137/71 (93) 98 03/31/18 01:00 14 03/31/18 00:35 82 14 30 03/31/18 00:30 59 14 101/75 (84) 99 03/31/18 00:26 14 03/31/18 00:00 61 03/31/18 00:00 98.0 66 14 117/63 (81) 98 98.0 03/31/18 00:00 14 03/31/18 00:00 Mechanical Ventilator 03/31/18 00:00 30 03/30/18 23:00 59 14 119/54 (75) 99 18 23:00 14 03/30/18 22:56 59 14 30 18 22:30 56 14 108/57 (74) 99 18 22:00 63 14 118/54 (75) 99 03/30/18 22:00 14 03/30/18 21:30 79 14 127/62 (83) 98 03/30/18 21:16 61 14 30 18 21:00 79 17 135/88 (104) 100 18 21:00 17 03/30/18 20:30 78 14 131/79 (96) 99 18 20:00 100.4 86 15 120/59 (79) 99 100.4 03/30/18 20:00 86 03/30/18 20:00 30 03/30/18 20:00 Mechanical Ventilator 03/30/18 20:00 15 03/30/18 19:30 94 14 120/59 (79) 99 03/30/18 19:26 91 15 40 03/30/18 19:00 89 14 120/59 (79) 100 03/30/18 19:00 18 03/30/18 18:43 19 03/30/18 18:30 96 19 106/52 (70) 100 03/30/18 18:00 91 14 84/52 (63) 100 03/30/18 17:50 93 15 60 03/30/18 17:00 93 14 106/67 (80) 100 03/30/18 16:26 14 106/67 (80) 03/30/18 16:00 88 14 97/84 (88) 96 03/30/18 15:29 83 14 60 03/30/18 15:27 Mechanical Ventilator 03/30/18 15:00 60 03/30/18 15:00 98.8 86 14 97/84 (88) 96 98.8 03/30/18 15:00 78 Height (Feet): 5 Height (Inches): 6.00 Weight (Pounds): 238 Laboratory Tests Test 03/30/18 15:44 03/31/18 02:15 03/31/18 05:03 03/31/18 10:00 Arterial Blood pH 7.436 (7.350-7.450) Arterial Blood Partial Pressure CO2 41.5 mmHg (35.0-45.0) Arterial Blood Partial Pressure O2 251.2 mmHg (75.0-100.0) H Arterial Blood HCO3 27.3 mmol/L (22.0-26.0) H Arterial Blood Oxygen Saturation 99.4 % (92.0-98.0) H Arterial Blood Base Excess 2.8 Jacobo Test Positive Activated Partial Thromboplast Time 143 SEC (23-33) H > 150 SEC (23-33) *H Circulating Immune Complexes Pending Complement C2 Pending Complement C3 Pending Complement C4 Pending Total Complement (CH50) Pending White Blood Count 12.9 K/UL (4.8-10.8) #H Red Blood Count 4.08 M/UL (4.20-5.40) L Hemoglobin 12.0 G/DL (12.0-16.0) Hematocrit 36.7 % (37.0-47.0) L Mean Corpuscular Volume 90 FL (80-99) Mean Corpuscular Hemoglobin 29.4 PG (27.0-31.0) Mean Corpuscular Hemoglobin Concent 32.7 G/DL (32.0-36.0) Red Cell Distribution Width 12.2 % (11.6-14.8) Platelet Count 203 K/UL (150-450) Mean Platelet Volume 8.3 FL (6.5-10.1) Neutrophils (%) (Auto) % (45.0-75.0) Lymphocytes (%) (Auto) % (20.0-45.0) Monocytes (%) (Auto) % (1.0-10.0) Eosinophils (%) (Auto) % (0.0-3.0) Basophils (%) (Auto) % (0.0-2.0) Differential Total Cells Counted 100 Neutrophils % (Manual) 89 % (45-75) H Lymphocytes % (Manual) 7 % (20-45) L Monocytes % (Manual) 4 % (1-10) Eosinophils % (Manual) 0 % (0-3) Basophils % (Manual) 0 % (0-2) Band Neutrophils 0 % (0-8) Platelet Estimate Adequate Platelet Morphology Normal Red Blood Cell Morphology Normal Sodium Level 142 MMOL/L (136-145) Potassium Level 3.3 MMOL/L (3.5-5.1) L Chloride Level 106 MMOL/L (98-107) Carbon Dioxide Level 27 MMOL/L (21-32) Anion Gap 9 mmol/L (5-15) Blood Urea Nitrogen 11 mg/dL (7-18) Creatinine 0.7 MG/DL (0.55-1.30) Estimat Glomerular Filtration Rate mL/min (>60) Glucose Level 197 MG/DL (74-106) H Calcium Level 9.0 MG/DL (8.5-10.1) Current Medications Medications (Trade) Dose Ordered Sig/Lashay Route PRN Reason Start Time Stop Time Status Last Admin Dose Admin Allopurinol (Zyloprim) 100 mg DAILY ORAL 03/31/18 09:00 04/30/18 08:59 03/31/18 09:26 Atenolol (Tenormin) 25 mg DAILY ORAL 03/31/18 09:00 04/30/18 08:59 03/31/18 09:26 Atorvastatin Calcium (Lipitor) 20 mg BEDTIME ORAL 03/30/18 21:00 04/29/18 20:59 03/30/18 21:57 Dextrose (Dextrose 50%) 25 ml STAT PRN IV Hypoglycemia 03/30/18 13:00 04/29/18 12:59 Dextrose (Dextrose 50%) 50 ml STAT PRN IV Hypoglycemia 03/30/18 13:00 04/29/18 12:59 Dextrose/Sodium Chloride 1,000 ml @ 75 mls/hr [id number] IV 03/30/18 13:30 04/29/18 13:29 03/31/18 04:17 Famotidine (Pepcid) 20 mg BID ORAL 03/31/18 09:00 04/30/18 08:59 03/31/18 09:25 Fentanyl Citrate 1000 mcg/Sodium Chloride 100 ml @ 0 mls/hr Q24H IV 03/30/18 18:00 04/06/18 17:59 03/31/18 00:26 Heparin Sodium/ Dextrose 500 ml @ 23.052 mls/ hr adjust per protocol IV 03/31/18 12:45 04/30/18 12:44 03/31/18 12:48 Hydrochlorothiazide (Hydrodiuril) 25 mg DAILY ORAL 03/31/18 09:00 04/30/18 08:59 03/31/18 09:26 Labetalol HCl (Normodyne) 10 mg Q4H PRN IV For High Blood Pressure 03/30/18 13:00 04/29/18 12:59 Lorazepam (Ativan 2mg/ml 1ml) 2 mg Q4H PRN IV For Anxiety 03/30/18 15:45 04/06/18 15:44 03/31/18 10:43 Methylprednisolone Sodium Succinate (Solu-MEDROL) 40 mg EVERY 6 HOURS IVP 03/30/18 18:00 04/29/18 17:59 03/31/18 12:44 Ondansetron HCl (Zofran) 4 mg Q6H PRN IVP Nausea & Vomiting 03/30/18 13:00 04/29/18 12:59 Warfarin Sodium (Coumadin per pharmacy) 1 ea DAILY PRN MISC Per rx protocol 03/31/18 08:00 04/30/18 07:59 Warfarin Sodium (Coumadin) 5 mg COUMADIN ORAL 03/31/18 17:00 03/31/18 18:00 Alexia Herron M.D. Mar 31, 2018 14:49
[2018-03-31] MEDS ORDERED: Warfarin Sodium 5mg ORAL SCH (17:00)
--- NOTE | 2018-03-31 19:30 | Consultation ---
DATE OF CONSULTATION: 03/31/2018 INFECTIOUS DISEASE CONSULTATION CONSULTING PHYSICIAN: Alexia Herron M.D. REQUESTING PHYSICIAN: Emiliano Gardner M.D. REASON FOR CONSULTATION: Angioedema, rule out infectious etiology. HISTORY OF PRESENT ILLNESS: The patient is a 72-year-old female with past medical history of obesity, hypertension, hyperlipidemia, neuropathy, and gastroesophageal reflux disease, was brought in to [facility] emergency room for difficulty breathing and swollen tongue. The patient had progressive angioedema due to recent YAYA inhibitor she started taking. The patient required aggressive intubation to protect her airway and she was started on methylprednisolone with Benadryl in the emergency room for her severe angioedema. Subsequently, she was admitted to the intensive care unit and started on mechanical ventilation. An Infectious Disease consultation was requested to rule out infectious etiology of her angioedema. As of note, the patient is a poor historian, could not provide good history. History was mainly obtained from the medical record and the nursing staff. REVIEW OF SYSTEMS: Unable to obtain, the patient is poor historian. PAST MEDICAL HISTORY: Significant for obesity, hypertension, hyperlipidemia, neuropathy, and GERD. PAST SURGICAL HISTORY: Unable to obtain at this point. ALLERGIES: She is allergic to sulfa and YAYA inhibitors. MEDICATIONS: The patient is currently on atenolol, allopurinol, famotidine, warfarin, atorvastatin, methylprednisolone, fentanyl citrate, lorazepam, and labetalol. FAMILY HISTORY: Cannot be obtained, the patient is poor historian. PHYSICAL EXAMINATION: VITAL SIGNS: Temperature 98.8, pulse 89, respirations 18, blood pressure 141/31, and saturation 100% on FiO2 of 100%. GENERAL: Elderly female, obese, lying in bed. Awake, responsive to verbal command, not in acute distress. HEENT: Normocephalic and atraumatic. Pupils reactive to light. Moist oral mucosa. Enlarged tongue. Unable to assess the throat area due to enlarged tongue. NECK: Supple. ABDOMEN: Obese, nontender, and nondistended. EXTREMITIES: Trace edema. No cyanosis. LABORATORY AND DIAGNOSTIC DATA: Labs showed a white count of 12.9, hemoglobin of 12, and platelet count of 203. BUN of 11, creatinine of 0.7. AST of 17, ALT of 16. Imaging, chest x-ray on admission showed no acute disease. Abdominal x-ray showed esophageal catheter overlies the expected location of the stomach. There are distended small and large bowel loops due to ileus. ASSESSMENT AND RECOMMENDATION: 1. Angioedema isolated, rule out infectious etiology. We will send blood culture, C-reactive protein, and sedimentation rate. Await complements level. Avoid triggers such as YAYA inhibitor or ARB. Monitor in intensive care unit. We will obtain x-ray of the neck to rule out any epiglottic enlargement. 2. Acute respiratory failure due to the above, intubated, status post self-extubation. Monitor chest x-ray. Pulmonary is following. 3. Bronchitis with no productive cough due to angioedema. Continue nebulizer and steroid treatment as needed. 4. Longstanding persistent atrial fibrillation. Continue rate-controlling medicine. Cardiology team is following. Thank you for the consult. Alexia Herron M.D. DR: LM JOB#: [id number] CC: JUAN MANUEL
[2018-03-31] MEDS: Atorvastatin 20mg tab ORAL SCH (21:00)
--- NOTE | 2018-03-31 21:15 | Consultation ---
DATE OF CONSULTATION: 03/31/2018 CARDIOLOGY CONSULTATION CONSULTING PHYSICIAN: Arvin Chen M.D. REFERRING PHYSICIAN: Emiliano Gardner M.D. REASON FOR CONSULTATION: Hypertension and tachycardia. HISTORY OF PRESENT ILLNESS: The patient is a 72-year-old lady who was brought to the emergency room for difficulty breathing and swelling of the tongue. The patient was noted in the ER to have progressive angioedema and was intubated to protect the airway. This happened after the patient took the lisinopril. The patient also received Solu-Medrol and Benadryl. The patient was subsequently extubated. Cardiology consultation was obtained for further evaluation and management. REVIEW OF SYSTEMS: Review of systems was negative other than what is mentioned in the history of present illness. ALLERGIES: She is allergic to Sulfa and YAYA inhibitors. PAST MEDICAL HISTORY: Hypertension, hyperlipidemia, neuropathy, gastroesophageal reflux disease, and obesity. FAMILY HISTORY: Noncontributory. SOCIAL HISTORY: She lives at home. Does not smoke or drink alcohol. Daughter at the bedside. PHYSICAL EXAMINATION: VITAL SIGNS: Blood pressure is 147/31, pulse 89, respirations 18, and she is afebrile. HEAD AND NECK: Showed no JVD. Still her lips are swollen. LUNGS: Clear. CARDIOVASCULAR: Regular S1 and S2 with no gallop or murmur. ABDOMEN: Morbidly obese. EXTREMITIES: No pitting edema. LABORATORY DATA: Her labs show white count of 12.9, hemoglobin of 12, hematocrit 36.2, and platelet count of 203,000. Sodium 142, potassium 3.6, BUN of 11, creatinine 0.7, and glucose of 197. Troponin is negative. Triglycerides 144. PTT is 22. 150. ASSESSMENT AND PLAN: 1. Shortness of breath with angioedema due to lisinopril. The patient was intubated, but subsequently extubated. 2. Paroxysmal atrial fibrillation. The patient states she was on Coumadin in the past, but that was discontinued in October due to gastrointestinal bleed. The patient is on 25 mg daily. Coumadin and heparin per pharmacy. 3. Hypertension, on atenolol 25 mg daily and hydrochlorothiazide 25 mg daily. 4. Hyperlipidemia, on Lipitor. 5. Status post angioedema secondary to lisinopril, currently on Solu-Medrol. Thank you very much, Dr. Gardner, for allowing me to participate in the care of this patient. Please do not hesitate to contact me for any questions regarding my evaluation. Arvin Chen M.D. DR: MARITZA JOB#: [id number] CC:
[2018-04-01] VITALS (24 sets, daily range): BP systolic 108–180; BP diastolic 41–90
[2018-04-01] MEDS: Solu-MEDROL 40mg Inj IVP SCH ×4 (00:02→21:51)
[2018-04-01] MEDS: LORazepam Inj 2mg/ml 1ml IV PRN ×3 (01:14→18:05)
[2018-04-01 04:55] LABS: HEMATOCRIT 33.4 % (37.0-47.0); HEMOGLOBIN 11.4 G/DL (12.0-16.0); MEAN CORPUSCULAR VOLUME 91 FL (80-99); PLATELET COUNT 180 K/UL (150-450); RED BLOOD COUNT 3.66 M/UL (4.20-5.40); RED CELL DISTRIBUTION WIDTH 12.5 % (11.6-14.8); WHITE BLOOD COUNT 12.7 K/UL (4.8-10.8)
[2018-04-01 05:01] LABS: INR 1.1 (0.9-1.1)
[2018-04-01 05:01] LABS: ANION GAP 6 mmol/L (5-15); BLOOD UREA NITROGEN 13 mg/dL (7-18); CALCIUM 8.4 MG/DL (8.5-10.1); CARBON DIOXIDE 27 MMOL/L (21-32); CHLORIDE 107 MMOL/L (98-107); CREATININE 0.7 MG/DL (0.55-1.30); POTASSIUM 3.1 MMOL/L (3.5-5.1); SODIUM 140 MMOL/L (136-145)
[2018-04-01] MEDS: D5NS 1,000 ML IV SCH (05:43)
--- NOTE | 2018-04-01 08:03 | Nephrology Progress Note ---
Assessment/Plan Assessment/Plan 1. Resp Failure- Patient self extubated - angioedema from YAYA-I. - YAYA-I stopped + steroids 2. Chronic AFib with RVR- restarted coumadin. On heaprin gtt bridge 3. HTN- stable 4. DVT Prophylaxsis- on anticoagulation 5. ACS/Elevated Trop I - On heparin gtt - await cardiology evaluation 6. Hypokalemia- being replaced Transfer to [facility] once cleared by cardiology Subjective Date patient seen: Apr 01, 2018 Time patient seen: 07:59 ROS Limited/Unobtainable: No Allergies: Coded Allergies: SULFA (SULFONAMIDE ANTIBIOTICS) (Verified Allergy, Severe, Itching, ) Uncoded Allergies: SULFA (Allergy, Unknown, 03/30/18) All Systems: reviewed and negative except above Subjective Patient self extubated. Agitated Objective Last 24 Hour Vital Signs Date Time Temp Pulse Resp B/P (MAP) Pulse Ox O2 Delivery O2 Flow Rate FiO2 04/01/18 07:00 62 14 108/79 (89) 95 04/01/18 06:00 63 14 136/55 (82) 95 04/01/18 05:00 74 14 118/77 (91) 95 04/01/18 04:00 Room Air 04/01/18 04:00 98.3 54 14 120/43 (68) 95 98.3 04/01/18 04:00 54 04/01/18 03:00 52 13 114/41 (65) 95 04/01/18 02:00 55 15 164/90 (114) 95 04/01/18 01:00 94 20 180/86 (117) 94 04/01/18 00:00 98.0 54 14 137/58 (84) 95 98.0 04/01/18 00:00 53 04/01/18 00:00 Room Air 03/31/18 23:00 Nasal Cannula 2.0 28 03/31/18 23:00 52 14 127/49 (75) 95 03/31/18 22:59 96 Nasal Cannula 2.0 28 03/31/18 22:00 54 18 113/47 (69) 94 03/31/18 21:00 56 18 136/108 (117) 94 03/31/18 20:00 98.0 81 18 119/25 (56) 94 98.0 03/31/18 20:00 Room Air 03/31/18 20:00 54 03/31/18 19:00 70 18 154/98 (116) 96 03/31/18 18:00 71 18 154/56 (88) 97 03/31/18 17:23 64 18 03/31/18 17:00 71 18 157/80 (105) 95 03/31/18 16:00 Room Air 03/31/18 16:00 59 03/31/18 16:00 98.9 68 18 163/77 (105) 95 98.9 03/31/18 16:00 21 03/31/18 15:05 58 16 03/31/18 15:00 78 11 153/34 (73) 100 03/31/18 14:00 84 11 135/50 (78) 100 03/31/18 13:00 79 12 175/45 (88) 100 03/31/18 12:00 100 03/31/18 12:00 73 03/31/18 12:00 Room Air 03/31/18 12:00 98.8 89 11 141/31 (67) 100 98.8 03/31/18 11:00 94 12 166/37 (80) 100 03/31/18 10:43 59 14 30 03/31/18 10:00 99 14 174/68 (103) 100 03/31/18 09:26 69 162/82 03/31/18 09:05 63 14 30 03/31/18 09:00 96 14 164/37 (79) 100 03/31/18 08:00 98.5 94 21 129/37 (67) 100 98.5 03/31/18 08:00 30 03/31/18 08:00 69 03/31/18 08:00 Mechanical Ventilator Intake and Output 03/31/18 04/01/18 19:00 07:00 Intake Total 1508.371 ml 1078.572 ml Output Total 500 ml 400 ml Balance 1008.371 ml 678.572 ml Intake Oral 0 ml 0 ml Free Water 50 ml IV Total 1368.371 ml 1078.572 ml Other 90 ml Output Urine Total 500 ml 400 ml Laboratory Tests 03/31/18 10:00: Activated Partial Thromboplast Time > 150*H 03/31/18 10:30: Erythrocyte Sedimentation Rate 36H, C-Reactive Protein, Quantitative 0.9 03/31/18 18:20: Activated Partial Thromboplast Time 87H 03/31/18 20:35: Arterial Blood pH 7.420, Arterial Blood Partial Pressure CO2 38.5, Arterial Blood Partial Pressure O2 66.5L, Arterial Blood HCO3 24.5, Arterial Blood Oxygen Saturation 91.7L, Arterial Blood Base Excess 0.2, Jacobo Test Positive 04/01/18 04:10: White Blood Count 12.7H, Red Blood Count 3.66L, Hemoglobin 11.4L, Hematocrit 33.4L, Mean Corpuscular Volume 91, Mean Corpuscular Hemoglobin 31.0, Mean Corpuscular Hemoglobin Concent 34.1, Red Cell Distribution Width 12.5, Platelet Count 180, Mean Platelet Volume 9.2, Neutrophils (%) (Auto) , Lymphocytes (%) ( Auto) , Monocytes (%) (Auto) , Eosinophils (%) (Auto) , Basophils (%) (Auto) , Neutrophils % (Manual) [Pending], Lymphocytes % (Manual) [Pending], Platelet Estimate [Pending], Platelet Morphology [Pending], Activated Partial Thromboplast Time 93H, Sodium Level 140, Potassium Level 3.1L, Chloride Level 107, Carbon Dioxide Level 27, Anion Gap 6, Blood Urea Nitrogen 13, Creatinine 0.7, Estimat Glomerular Filtration Rate , Glucose Level 174H, Calcium Level 8.4L , Troponin I 2.976H, Pro-B-Type Natriuretic Peptide [id number] 04/01/18 04:30: Prothrombin Time 11.7H, Prothromb Time International Ratio 1.1 Height (Feet): 5 Height (Inches): 6.00 Weight (Pounds): 235 General Appearance: agitated, morbidly obese EENT: PERRL/EOMI Neck: normal alignment, supple Cardiovascular: normal rate, regular rhythm Respiratory/Chest: lungs clear, normal breath sounds Abdomen: non tender, soft Edema: no edema noted Arm (L), no edema noted Arm (R), no edema noted Leg (L), no edema noted Leg (R), no edema noted Pedal (L), no edema noted Pedal (R), no edema noted Generalized Vladimir Biswas M.D. Apr 01, 2018 08:03
[2018-04-01] MEDS: Heparin 25,000u/D5W 500ml 500 ML IV SCH (08:26)
[2018-04-01] MEDS: Atenolol 25mg tab ORAL SCH (08:27)
[2018-04-01] MEDS: Allopurinol 100mg Tab ORAL SCH (08:28)
--- NOTE | 2018-04-01 08:40 | Pulmonolgy Critical Care Note ---
Critical Care - Asmt/Plan Problems: (1) Angioedema (2) Acute respiratory failure (3) Longstanding persistent atrial fibrillation (4) Obesity (5) Pulmonary hypertension (6) NSTEMI (non-ST elevated myocardial infarction) Respiratory: monitor respiratory rate, adjust FIO2 - titrate down FiO2 to keep SaO2 > 90%, other - Dec SM to 30 IV q8, continue Famotodine 50 BID, No ACEi, F/ U C1AE, C3, C4, F/U DUPLEX and D-dimer Cardiac: continue to monitor HR/BP, other - F/U repeat ECG/trop, continue A/C, F/U cards recs, possible transfer for PCI, ASA 325 Renal: keep IV fluid - monitor volumes, check electrolytes Gastrointestinal: other - PO as tolerated unless she goes for PCI will need to be NPO Endocrine: check TSH, continue sliding scale insulin Hematologic: monitor H/H Neurologic: keep patient comfortable Prophylaxis: Heparin - IVUH, other - Famotodine Disposition: keep in ICU Time Spent (Minutes): 60 Critical Care - Objective Last 24 Hour Vital Signs Date Time Temp Pulse Resp B/P (MAP) Pulse Ox O2 Delivery O2 Flow Rate FiO2 04/01/18 08:27 61 128/49 04/01/18 07:47 71 24 Nasal Cannula 2.0 28 04/01/18 07:45 97 Nasal Cannula 2.0 28 04/01/18 07:45 Nasal Cannula 2.0 28 04/01/18 07:00 62 14 108/79 (89) 95 04/01/18 06:00 63 14 136/55 (82) 95 04/01/18 05:00 74 14 118/77 (91) 95 04/01/18 04:00 Room Air 04/01/18 04:00 98.3 54 14 120/43 (68) 95 98.3 04/01/18 04:00 54 04/01/18 03:00 52 13 114/41 (65) 95 04/01/18 02:00 55 15 164/90 (114) 95 04/01/18 01:00 94 20 180/86 (117) 94 04/01/18 00:00 98.0 54 14 137/58 (84) 95 98.0 04/01/18 00:00 53 04/01/18 00:00 Room Air 03/31/18 23:00 Nasal Cannula 2.0 28 03/31/18 23:00 52 14 127/49 (75) 95 03/31/18 22:59 96 Nasal Cannula 2.0 28 03/31/18 22:00 54 18 113/47 (69) 94 03/31/18 21:00 56 18 136/108 (117) 94 03/31/18 20:00 98.0 81 18 119/25 (56) 94 98.0 03/31/18 20:00 Room Air 03/31/18 20:00 54 03/31/18 19:00 70 18 154/98 (116) 96 03/31/18 18:00 71 18 154/56 (88) 97 03/31/18 17:23 64 18 03/31/18 17:00 71 18 157/80 (105) 95 03/31/18 16:00 Room Air 03/31/18 16:00 59 03/31/18 16:00 98.9 68 18 163/77 (105) 95 98.9 03/31/18 16:00 21 03/31/18 15:05 58 16 03/31/18 15:00 78 11 153/34 (73) 100 03/31/18 14:00 84 11 135/50 (78) 100 03/31/18 13:00 79 12 175/45 (88) 100 03/31/18 12:00 100 03/31/18 12:00 73 03/31/18 12:00 Room Air 03/31/18 12:00 98.8 89 11 141/31 (67) 100 98.8 03/31/18 11:00 94 12 166/37 (80) 100 03/31/18 10:43 59 14 30 03/31/18 10:00 99 14 174/68 (103) 100 03/31/18 09:26 69 162/82 03/31/18 09:05 63 14 30 03/31/18 09:00 96 14 164/37 (79) 100 Status: awake, other - obese Condition: improving HEENT: atraumatic, normocephalic Neck: full ROM Lungs: clear Heart: HR/BP stable Abdomen: soft, non-tender, active bowel sounds Extremities: edema - trace bLE, cyanosis - no, clubbing - no Blood Sugars: BS controlled Critical Care - Subjective ROS Limited/Unobtainable: Yes ICU Day: 3 Intubation Day: extubated Interval Events: Self extubated, trop 2.9, BNP 17k, no ECG changes LVEF 50 50% with PASP 56 No SOB, no CP, no F/C FI02: 28 Vent Support Breath Rate: 14 Vent Support Mode: AC Vent Tidal Volume: 550 Sputum Amount: None PEEP: 5.0 PIP: 34 I&O: Intake and Output 03/31/18 04/01/18 19:00 07:00 Intake Total 1508.371 ml 1078.572 ml Output Total 500 ml 400 ml Balance 1008.371 ml 678.572 ml Intake Oral 0 ml 0 ml Free Water 50 ml IV Total 1368.371 ml 1078.572 ml Other 90 ml Output Urine Total 500 ml 400 ml Subjective: Intubated, awake, denies complaints ET-Tube: 7.5 ET Position: 22 Alfonso Huff MD Apr 01, 2018 08:40
[2018-04-01] MEDS ORDERED: D5NS 1000ml IV ONE ×2 (11:07→13:40)
[2018-04-01] MEDS: NovoLOG Insulin Flexpen SUBQ SCH ×3 (11:30→21:13)
[2018-04-01] MEDS ORDERED: Tubing IV Secondary IV ONE (13:40)
--- NOTE | 2018-04-01 13:56 | Infectious Diseases Prog Note ---
Assessment/Plan Problems: (1) Angioedema Assessment & Plan: isolated, rule out infectious etiology , await blood culture with normal CRP/ESR , await complements level , avoid causes such as YAYA INH (2) Acute respiratory failure Assessment & Plan: due to the above , intubated , S/P self extubation , monitor CXR , pulmonary is following (3) Bronchitis Assessment & Plan: due to angioedema , continue nebulizers as needed , keep off antibiotics (4) Longstanding persistent atrial fibrillation Assessment & Plan: continue rate controlling meds , cardiology is following Subjective Constitutional: Reports: no symptoms HEENT: Reports: no symptoms Respiratory: Reports: no symptoms Breasts: Reports: no symptoms Cardiovascular: Reports: no symptoms Gastrointestinal/Abdominal: Reports: no symptoms Genitourinary: Reports: no symptoms Neurologic: Reports: no symptoms Psychiatric: Reports: no symptoms Skin: Reports: no symptoms Endocrine: Reports: no symptoms Hematologic: Reports: no symptoms Musculoskeletal: Reports: no symptoms Allergies: Coded Allergies: SULFA (SULFONAMIDE ANTIBIOTICS) (Verified Allergy, Severe, Itching, ) Uncoded Allergies: SULFA (Allergy, Unknown, 03/30/18) Objective Vital Signs Last 24 Hour Vital Signs Date Time Temp Pulse Resp B/P (MAP) Pulse Ox O2 Delivery O2 Flow Rate FiO2 04/01/18 13:00 52 18 153/60 (91) 96 04/01/18 12:00 Room Air 04/01/18 12:00 68 04/01/18 12:00 98.2 54 18 128/48 (74) 96 98.2 04/01/18 11:00 52 18 110/45 (66) 96 04/01/18 10:00 60 17 130/48 (75) 95 04/01/18 09:00 63 17 108/79 (89) 95 04/01/18 08:27 61 128/49 04/01/18 08:00 98.3 68 18 128/45 (72) 96 98.3 04/01/18 08:00 77 04/01/18 08:00 Room Air 04/01/18 07:47 71 24 Nasal Cannula 2.0 28 04/01/18 07:45 97 Nasal Cannula 2.0 28 04/01/18 07:45 Nasal Cannula 2.0 28 04/01/18 07:00 62 14 108/79 (89) 95 04/01/18 06:00 63 14 136/55 (82) 95 04/01/18 05:00 74 14 118/77 (91) 95 04/01/18 04:00 Room Air 04/01/18 04:00 98.3 54 14 120/43 (68) 95 98.3 04/01/18 04:00 54 04/01/18 03:00 52 13 114/41 (65) 95 04/01/18 02:00 55 15 164/90 (114) 95 04/01/18 01:00 94 20 180/86 (117) 94 04/01/18 00:00 98.0 54 14 137/58 (84) 95 98.0 04/01/18 00:00 53 04/01/18 00:00 Room Air 03/31/18 23:00 Nasal Cannula 2.0 28 03/31/18 23:00 52 14 127/49 (75) 95 03/31/18 22:59 96 Nasal Cannula 2.0 28 03/31/18 22:00 54 18 113/47 (69) 94 03/31/18 21:00 56 18 136/108 (117) 94 03/31/18 20:00 98.0 81 18 119/25 (56) 94 98.0 03/31/18 20:00 Room Air 03/31/18 20:00 54 03/31/18 19:00 70 18 154/98 (116) 96 03/31/18 18:00 71 18 154/56 (88) 97 03/31/18 17:23 64 18 03/31/18 17:00 71 18 157/80 (105) 95 03/31/18 16:00 Room Air 03/31/18 16:00 59 03/31/18 16:00 98.9 68 18 163/77 (105) 95 98.9 03/31/18 16:00 21 03/31/18 15:05 58 16 03/31/18 15:00 78 11 153/34 (73) 100 03/31/18 14:00 84 11 135/50 (78) 100 Height (Feet): 5 Height (Inches): 6.00 Weight (Pounds): 235 General Appearance: WD/WN, no acute distress HEENT: normocephalic, atraumatic, anicteric, mucous membranes moist Respiratory/Chest: normal breath sounds, no respiratory distress, no accessory muscle use, decreased breath sounds, crackles/rales Cardiovascular: normal peripheral pulses, normal rate, regular rhythm, no gallop/murmur, no JVD Abdomen: normal bowel sounds, soft, non tender, no organomegaly, non distended , no mass, no scars Extremities: no cyanosis, no clubbing Skin: no rash, no lesions, no ulcers Neurologic/Psychiatric: alert, oriented x 3, responsive Lymphatic: no neck adenopathy, no groin adenopathy Microbiology Date/Time Source Procedure Growth Status 03/30/18 13:30 Nasal Nares MRSA Culture - Final NO METHICILLIN RESISTANT STAPH AUREUS... Complete 03/30/18 13:30 Rectum VRE Culture - Final NO VANCOMYCIN RESISTANT ENTEROCOCCUS ... Complete 03/30/18 13:30 Rectum - Final NO CARBAPENEM-RESISTANT ENTEROBACTERI... Complete Laboratory Tests Test 03/31/18 18:20 03/31/18 20:35 04/01/18 04:10 04/01/18 04:30 Activated Partial Thromboplast Time 87 SEC (23-33) H 93 SEC (23-33) H Arterial Blood pH 7.420 (7.350-7.450) Arterial Blood Partial Pressure CO2 38.5 mmHg (35.0-45.0) Arterial Blood Partial Pressure O2 66.5 mmHg (75.0-100.0) L Arterial Blood HCO3 24.5 mmol/L (22.0-26.0) Arterial Blood Oxygen Saturation 91.7 % (92.0-98.0) L Arterial Blood Base Excess 0.2 Jacobo Test Positive White Blood Count 12.7 K/UL (4.8-10.8) H Red Blood Count 3.66 M/UL (4.20-5.40) L Hemoglobin 11.4 G/DL (12.0-16.0) L Hematocrit 33.4 % (37.0-47.0) L Mean Corpuscular Volume 91 FL (80-99) Mean Corpuscular Hemoglobin 31.0 PG (27.0-31.0) Mean Corpuscular Hemoglobin Concent 34.1 G/DL (32.0-36.0) Red Cell Distribution Width 12.5 % (11.6-14.8) Platelet Count 180 K/UL (150-450) Mean Platelet Volume 9.2 FL (6.5-10.1) Neutrophils (%) (Auto) % (45.0-75.0) Lymphocytes (%) (Auto) % (20.0-45.0) Monocytes (%) (Auto) % (1.0-10.0) Eosinophils (%) (Auto) % (0.0-3.0) Basophils (%) (Auto) % (0.0-2.0) Differential Total Cells Counted 100 Neutrophils % (Manual) 91 % (45-75) H Lymphocytes % (Manual) 4 % (20-45) L Monocytes % (Manual) 5 % (1-10) Eosinophils % (Manual) 0 % (0-3) Basophils % (Manual) 0 % (0-2) Band Neutrophils 0 % (0-8) Platelet Estimate Adequate Platelet Morphology Normal Hypochromasia 1+ Sodium Level 140 MMOL/L (136-145) Potassium Level 3.1 MMOL/L (3.5-5.1) L Chloride Level 107 MMOL/L (98-107) Carbon Dioxide Level 27 MMOL/L (21-32) Anion Gap 6 mmol/L (5-15) Blood Urea Nitrogen 13 mg/dL (7-18) Creatinine 0.7 MG/DL (0.55-1.30) Estimat Glomerular Filtration Rate mL/min (>60) Glucose Level 174 MG/DL (74-106) H Calcium Level 8.4 MG/DL (8.5-10.1) L Troponin I 2.976 ng/mL (0.000-0.056) Pro-B-Type Natriuretic Peptide 85298 pg/mL (0-125) H Prothrombin Time 11.7 SEC (9.30-11.50) H Prothromb Time International Ratio 1.1 (0.9-1.1) Test 04/01/18 09:00 Troponin I 2.621 ng/mL (0.000-0.056) Current Medications Medications (Trade) Dose Ordered Sig/Lashay Route PRN Reason Start Time Stop Time Status Last Admin Dose Admin Allopurinol (Zyloprim) 100 mg DAILY ORAL 03/31/18 09:00 04/30/18 08:59 04/01/18 08:28 Atenolol (Tenormin) 25 mg DAILY ORAL 03/31/18 09:00 04/30/18 08:59 04/01/18 08:27 Atorvastatin Calcium (Lipitor) 20 mg BEDTIME ORAL 03/30/18 21:00 04/29/18 20:59 03/30/18 21:57 Dextrose (Dextrose 50%) 25 ml STAT PRN IV Hypoglycemia 04/01/18 08:15 05/01/18 08:14 Dextrose (Dextrose 50%) 50 ml STAT PRN IV Hypoglycemia 04/01/18 08:15 05/01/18 08:14 Famotidine (Pepcid) 20 mg BID ORAL 03/31/18 09:00 04/30/18 08:59 04/01/18 08:27 Fentanyl Citrate 1000 mcg/Sodium Chloride 100 ml @ 0 mls/hr Q24H IV 03/30/18 18:00 04/06/18 17:59 03/31/18 00:26 Heparin Sodium/ Dextrose 500 ml @ 23.052 mls/ hr adjust per protocol IV 03/31/18 12:45 04/30/18 12:44 04/01/18 08:26 Hydrochlorothiazide (Hydrodiuril) 25 mg DAILY ORAL 03/31/18 09:00 04/30/18 08:59 04/01/18 08:28 Insulin Aspart (NovoLOG) BEFORE MEALS AND HS SUBQ 04/01/18 11:30 05/01/18 11:29 Labetalol HCl (Normodyne) 10 mg Q4H PRN IV For High Blood Pressure 03/30/18 13:00 04/29/18 12:59 Lorazepam (Ativan 2mg/ml 1ml) 2 mg Q4H PRN IV For Anxiety 03/30/18 15:45 04/06/18 15:44 04/01/18 06:34 Methylprednisolone Sodium Succinate (Solu-MEDROL) 30 mg Q8HR IVP 04/01/18 14:00 04/29/18 17:59 04/01/18 13:13 Ondansetron HCl (Zofran) 4 mg Q6H PRN IVP Nausea & Vomiting 03/30/18 13:00 04/29/18 12:59 Warfarin Sodium (Coumadin per pharmacy) 1 ea DAILY PRN MISC Per rx protocol 03/31/18 08:00 04/30/18 07:59 Warfarin Sodium (Coumadin) 5 mg COUMADIN ORAL 04/01/18 17:00 04/01/18 18:00 Alexia Herron M.D. Apr 01, 2018 13:56
--- NOTE | 2018-04-01 15:16 | Cardiac Electrophysiology PN ---
Assessment/Plan Assessment/Plan 1. Shortness of breath with angioedema due to lisinopril. Extubated. 2. Paroxysmal atrial fibrillation. On heparin and Coumadin 3. Hypertension, on atenolol 25 mg daily and hydrochlorothiazide 25 mg daily. 4. Hyperlipidemia, on Lipitor. 5. Status post angioedema secondary to lisinopril, currently on Solu-Medrol. UZIEL RN Subjective Subjective No events in ICU Objective Last 24 Hour Vital Signs Date Time Temp Pulse Resp B/P (MAP) Pulse Ox O2 Delivery O2 Flow Rate FiO2 04/01/18 14:00 52 18 113/44 (67) 96 04/01/18 13:00 52 18 153/60 (91) 96 04/01/18 12:00 Room Air 04/01/18 12:00 68 04/01/18 12:00 98.2 54 18 128/48 (74) 96 98.2 04/01/18 11:00 52 18 110/45 (66) 96 04/01/18 10:00 60 17 130/48 (75) 95 04/01/18 09:00 63 17 108/79 (89) 95 04/01/18 08:27 61 128/49 04/01/18 08:00 98.3 68 18 128/45 (72) 96 98.3 04/01/18 08:00 77 04/01/18 08:00 Room Air 04/01/18 07:47 71 24 Nasal Cannula 2.0 28 04/01/18 07:45 97 Nasal Cannula 2.0 28 04/01/18 07:45 Nasal Cannula 2.0 28 04/01/18 07:00 62 14 108/79 (89) 95 04/01/18 06:00 63 14 136/55 (82) 95 04/01/18 05:00 74 14 118/77 (91) 95 04/01/18 04:00 Room Air 04/01/18 04:00 98.3 54 14 120/43 (68) 95 98.3 04/01/18 04:00 54 04/01/18 03:00 52 13 114/41 (65) 95 04/01/18 02:00 55 15 164/90 (114) 95 04/01/18 01:00 94 20 180/86 (117) 94 04/01/18 00:00 98.0 54 14 137/58 (84) 95 98.0 04/01/18 00:00 53 04/01/18 00:00 Room Air 03/31/18 23:00 Nasal Cannula 2.0 28 03/31/18 23:00 52 14 127/49 (75) 95 03/31/18 22:59 96 Nasal Cannula 2.0 28 03/31/18 22:00 54 18 113/47 (69) 94 03/31/18 21:00 56 18 136/108 (117) 94 03/31/18 20:00 98.0 81 18 119/25 (56) 94 98.0 03/31/18 20:00 Room Air 03/31/18 20:00 54 03/31/18 19:00 70 18 154/98 (116) 96 03/31/18 18:00 71 18 154/56 (88) 97 03/31/18 17:23 64 18 03/31/18 17:00 71 18 157/80 (105) 95 03/31/18 16:00 Room Air 03/31/18 16:00 59 03/31/18 16:00 98.9 68 18 163/77 (105) 95 98.9 03/31/18 16:00 21 Intake and Output 03/31/18 04/01/18 19:00 07:00 Intake Total 1508.371 ml 1153.572 ml Output Total 500 ml 400 ml Balance 1008.371 ml 753.572 ml Intake Oral 0 ml 0 ml Free Water 50 ml IV Total 1368.371 ml 1153.572 ml Other 90 ml Output Urine Total 500 ml 400 ml Laboratory Tests Test 03/31/18 18:20 03/31/18 20:35 04/01/18 04:10 04/01/18 04:30 Activated Partial Thromboplast Time 87 SEC (23-33) H 93 SEC (23-33) H Arterial Blood pH 7.420 (7.350-7.450) Arterial Blood Partial Pressure CO2 38.5 mmHg (35.0-45.0) Arterial Blood Partial Pressure O2 66.5 mmHg (75.0-100.0) L Arterial Blood HCO3 24.5 mmol/L (22.0-26.0) Arterial Blood Oxygen Saturation 91.7 % (92.0-98.0) L Arterial Blood Base Excess 0.2 Jacobo Test Positive White Blood Count 12.7 K/UL (4.8-10.8) H Red Blood Count 3.66 M/UL (4.20-5.40) L Hemoglobin 11.4 G/DL (12.0-16.0) L Hematocrit 33.4 % (37.0-47.0) L Mean Corpuscular Volume 91 FL (80-99) Mean Corpuscular Hemoglobin 31.0 PG (27.0-31.0) Mean Corpuscular Hemoglobin Concent 34.1 G/DL (32.0-36.0) Red Cell Distribution Width 12.5 % (11.6-14.8) Platelet Count 180 K/UL (150-450) Mean Platelet Volume 9.2 FL (6.5-10.1) Neutrophils (%) (Auto) % (45.0-75.0) Lymphocytes (%) (Auto) % (20.0-45.0) Monocytes (%) (Auto) % (1.0-10.0) Eosinophils (%) (Auto) % (0.0-3.0) Basophils (%) (Auto) % (0.0-2.0) Differential Total Cells Counted 100 Neutrophils % (Manual) 91 % (45-75) H Lymphocytes % (Manual) 4 % (20-45) L Monocytes % (Manual) 5 % (1-10) Eosinophils % (Manual) 0 % (0-3) Basophils % (Manual) 0 % (0-2) Band Neutrophils 0 % (0-8) Platelet Estimate Adequate Platelet Morphology Normal Hypochromasia 1+ Sodium Level 140 MMOL/L (136-145) Potassium Level 3.1 MMOL/L (3.5-5.1) L Chloride Level 107 MMOL/L (98-107) Carbon Dioxide Level 27 MMOL/L (21-32) Anion Gap 6 mmol/L (5-15) Blood Urea Nitrogen 13 mg/dL (7-18) Creatinine 0.7 MG/DL (0.55-1.30) Estimat Glomerular Filtration Rate mL/min (>60) Glucose Level 174 MG/DL (74-106) H Calcium Level 8.4 MG/DL (8.5-10.1) L Troponin I 2.976 ng/mL (0.000-0.056) Pro-B-Type Natriuretic Peptide 88962 pg/mL (0-125) H Prothrombin Time 11.7 SEC (9.30-11.50) H Prothromb Time International Ratio 1.1 (0.9-1.1) Test 04/01/18 09:00 Troponin I 2.621 ng/mL (0.000-0.056) Microbiology Date/Time Source Procedure Growth Status 03/30/18 13:30 Nasal Nares MRSA Culture - Final NO METHICILLIN RESISTANT STAPH AUREUS... Complete 03/30/18 13:30 Rectum VRE Culture - Final NO VANCOMYCIN RESISTANT ENTEROCOCCUS ... Complete 03/30/18 13:30 Rectum - Final NO CARBAPENEM-RESISTANT ENTEROBACTERI... Complete Objective HEAD AND NECK: No JVD. Still her lips are swollen. LUNGS: Clear. CARDIOVASCULAR: Regular S1 and S2 with no gallop or murmur. ABDOMEN: Morbidly obese. EXTREMITIES: No pitting edema. Arvin Chen MD Apr 01, 2018 15:16
[2018-04-01] MEDS ORDERED: Warfarin Sodium 5mg ORAL SCH (17:00)
--- NOTE | 2018-04-01 17:31 | Cardiology Report ---
APPROVED REPORT EXAM: Two-dimensional and M-mode echocardiogram with Doppler and color Doppler. INDICATION Shortness of Breath M-Mode DIMENSIONS IVSd1.2 (0.7-1.1cm)Left Atrium (MM)5.8 (1.6-4.0cm) LVDd3.1 (3.5-5.6cm)Aortic Root3.3 (2.0-3.7cm) PWd1.4 (0.7-1.1cm)Aortic Cusp Exc.1.7 (1.5-2.0cm) LVDs1.3 (2.5-4.0cm) PWs2.0 cm Technically difficult study due to poor acoustic windows. Study quality precludes accurate assessment of regional wall motion. Normal left ventricular chamber size, mildly depressed systolic function and wall motion to extent visualized. Left ventricular ejection fraction estimated to be 55-60 %. Mild left ventricular hypertrophy. No evidence of pericardial effusion. Mild left atrial enlargement. Right atrial chamber size is within normal limits. Focal aortic valve sclerosis with adequate cusp excursion. Mildly thickened mitral valve leaflets with normal excursion. Mild mitral annulus and aortic root calcification. Normal pulmonic valve structure. Normal tricuspid valve structure. IVC dilated at 2.8 cm without physiological collapse, estimated RAP is 15 mmHg. A color flow and spectral Doppler study was performed and revealed: Mild aortic insufficiency. Trace mitral regurgitation. left ventricular relaxation Mild tricuspid regurgitation. Tricuspid systolic velocities suggests peak right ventricular systolic pressure of 58 mmHg, consistent with moderate pulmonary hypertension. Trace pulmonic regurgitation present.
--- NOTE | 2018-04-01 18:30 | Cardiology Report ---
APPROVED REPORT EKG Measurement Heart [id number] Normal sinus rhythm Left axis deviation poor r wave progression Possible Lateral infarct, age undetermined Abnormal ECG
--- NOTE | 2018-04-01 18:39 | Cardiology Report ---
APPROVED REPORT EKG Measurement Heart [id number] Sinus bradycardia mobitz 1 second degree av block Left axis deviation Anterolateral infarct, age undetermined Abnormal ECG
[2018-04-01] MEDS: Atorvastatin 20mg tab ORAL SCH (21:10)
[2018-04-02] VITALS (22 sets, daily range): BP systolic 104–163; BP diastolic 39–95
[2018-04-02 06:16] LABS: BASOPHILS % (AUTO) 0.2 % (0.0-2.0); HEMATOCRIT 34.7 % (37.0-47.0); HEMOGLOBIN 11.6 G/DL (12.0-16.0); MEAN CORPUSCULAR VOLUME 91 FL (80-99); MONOCYTES % (AUTO) 3.5 % (1.0-10.0); NEUTROPHILS % (AUTO) 83.3 % (45.0-75.0); PLATELET COUNT 170 K/UL (150-450); RED BLOOD COUNT 3.83 M/UL (4.20-5.40); RED CELL DISTRIBUTION WIDTH 12.2 % (11.6-14.8)
[2018-04-02] MEDS: Solu-MEDROL 40mg Inj IVP SCH (06:22)
[2018-04-02] MEDS: NovoLOG Insulin Flexpen SUBQ SCH ×4 (06:22→20:29)
[2018-04-02 06:23] LABS: INR 1.5 (0.9-1.1)
[2018-04-02 06:32] LABS: ANION GAP 7 mmol/L (5-15); BLOOD UREA NITROGEN 13 mg/dL (7-18); CALCIUM 8.6 MG/DL (8.5-10.1); CARBON DIOXIDE 30 MMOL/L (21-32); CHLORIDE 105 MMOL/L (98-107); CREATININE 0.6 MG/DL (0.55-1.30); POTASSIUM 3.2 MMOL/L (3.5-5.1); SODIUM 142 MMOL/L (136-145)
--- NOTE | 2018-04-02 08:15 | Pulmonolgy Critical Care Note ---
Critical Care - Asmt/Plan Problems: (1) Angioedema Assessment & Plan: RESOLVED (2) Acute respiratory failure Assessment & Plan: NOW EXTUBATED, O2 NEEDS IMPROVING (3) Longstanding persistent atrial fibrillation (4) Obesity (5) Pulmonary hypertension (6) NSTEMI (non-ST elevated myocardial infarction) Assessment & Plan: TROP DOWNTRENDING Respiratory: monitor respiratory rate, adjust FIO2 - Titrate down FiO2 to keep , other - Decrease SM to 30 IV BID, continue H2B, await serologies Cardiac: continue to monitor HR/BP, other - F.U EP recs, monitor HR, needs ischemia eval at some point Renal: check electrolytes - replete as needed Gastrointestinal: other - PO as tolerated, H2B Endocrine: monitor blood sugar, continue sliding scale insulin Hematologic: monitor H/H Neurologic: keep patient comfortable Prophylaxis: Heparin - IVUH + Coumadin, other - H2B Time Spent (Minutes): 40 Notes Reviewed: parcel post delivery, renal Discussed with: nurses, consultants Critical Care - Objective Last 24 Hour Vital Signs Date Time Temp Pulse Resp B/P (MAP) Pulse Ox O2 Delivery O2 Flow Rate FiO2 04/02/18 07:00 69 14 137/49 (78) 98 04/02/18 06:00 60 15 129/86 (100) 98 04/02/18 05:00 64 15 123/39 (67) 98 04/02/18 04:00 Room Air 04/02/18 04:00 49 04/02/18 04:00 98.0 63 15 118/46 (70) 98 98.0 04/02/18 03:00 63 16 134/73 (93) 98 04/02/18 02:00 50 16 152/54 (86) 98 04/02/18 01:00 58 16 156/53 (87) 98 04/02/18 00:00 98.4 51 15 138/63 (88) 98 98.4 04/02/18 00:00 Room Air 04/02/18 00:00 50 04/01/18 23:00 50 15 157/88 (111) 98 04/01/18 22:00 48 15 150/59 (89) 98 04/01/18 21:00 52 15 134/51 (78) 98 04/01/18 20:00 98.6 53 15 138/53 (81) 98 98.6 04/01/18 20:00 53 7/8/18 20:00 Room Air 04/01/18 20:00 Room Air 04/01/18 19:00 66 18 127/71 (89) 97 04/01/18 18:54 Nasal Cannula 2.0 28 04/01/18 18:54 98 Nasal Cannula 2.0 28 04/01/18 18:53 79 17 Nasal Cannula 2.0 28 04/01/18 18:00 51 18 157/61 (93) 94 04/01/18 17:00 51 18 128/50 (76) 95 04/01/18 17:00 Room Air 04/01/18 16:00 98.8 46 18 135/52 (79) 95 98.8 04/01/18 16:00 53 04/01/18 15:00 63 18 135/41 (72) 96 04/01/18 14:00 52 18 113/44 (67) 96 04/01/18 13:00 52 18 153/60 (91) 96 04/01/18 12:00 Room Air 04/01/18 12:00 68 04/01/18 12:00 98.2 54 18 128/48 (74) 96 98.2 04/01/18 11:00 52 18 110/45 (66) 96 04/01/18 10:00 60 17 130/48 (75) 95 04/01/18 09:00 63 17 108/79 (89) 95 04/01/18 08:27 61 128/49 Status: awake, other - obese female, AAOx' HEENT: atraumatic, normocephalic Neck: full ROM Lungs: clear Heart: HR/BP stable Abdomen: soft, non-tender, active bowel sounds Extremities: no C/C/E Micro: Microbiology Date/Time Source Procedure Growth Status 03/31/18 18:20 Blood Blood Culture - Preliminary NO GROWTH AFTER 24 HOURS Resulted 03/31/18 18:20 Blood Blood Culture - Preliminary NO GROWTH AFTER 24 HOURS Resulted 03/30/18 13:30 Nasal Nares MRSA Culture - Final NO METHICILLIN RESISTANT STAPH AUREUS... Complete 03/30/18 13:30 Rectum VRE Culture - Final NO VANCOMYCIN RESISTANT ENTEROCOCCUS ... Complete 03/30/18 13:30 Rectum - Final NO CARBAPENEM-RESISTANT ENTEROBACTERI... Complete Accucheck: 140 Critical Care - Subjective ROS Limited/Unobtainable: Yes ICU Day: 4 Intubation Day: self extubated Interval Events: Self extubated, koki PO, O2 needs stable, no cough, no SOB, wants to go home, started on Coumadin, trop downtrending Condition: improving IV Access: peripheral - x 2 EKG Rhythm: Sinus Bradycardia FI02: 28 Vent Support Breath Rate: 14 Vent Support Mode: AC Vent Tidal Volume: 550 Sputum Amount: None PEEP: 5.0 PIP: 34 Fluids: SLIV Drips: IVUH I&O: Intake and Output 04/01/18 04/02/18 19:00 07:00 Intake Total 820.098 ml 267.468 ml Output Total 400 ml 555 ml Balance 420.098 ml -287.532 ml Intake Oral 280 ml 60 ml IV Total 540.098 ml 207.468 ml Output Urine Total 400 ml 555 ml Subjective: Intubated, awake, denies complaints ET-Tube: 7.5 ET Position: 22 Labs: Laboratory Tests Test 04/01/18 09:00 04/02/18 05:30 Troponin I 2.621 ng/mL (0.000-0.056) White Blood Count 10.0 K/UL (4.8-10.8) Red Blood Count 3.83 M/UL (4.20-5.40) L Hemoglobin 11.6 G/DL (12.0-16.0) L Hematocrit 34.7 % (37.0-47.0) L Mean Corpuscular Volume 91 FL (80-99) Mean Corpuscular Hemoglobin 30.2 PG (27.0-31.0) Mean Corpuscular Hemoglobin Concent 33.4 G/DL (32.0-36.0) Red Cell Distribution Width 12.2 % (11.6-14.8) Platelet Count 170 K/UL (150-450) Mean Platelet Volume 9.4 FL (6.5-10.1) Neutrophils (%) (Auto) 83.3 % (45.0-75.0) H Lymphocytes (%) (Auto) 13.0 % (20.0-45.0) L Monocytes (%) (Auto) 3.5 % (1.0-10.0) Eosinophils (%) (Auto) 0.0 % (0.0-3.0) Basophils (%) (Auto) 0.2 % (0.0-2.0) Prothrombin Time 15.5 SEC (9.30-11.50) H Prothromb Time International Ratio 1.5 (0.9-1.1) H Activated Partial Thromboplast Time 72 SEC (23-33) H Sodium Level 142 MMOL/L (136-145) Potassium Level 3.2 MMOL/L (3.5-5.1) L Chloride Level 105 MMOL/L (98-107) Carbon Dioxide Level 30 MMOL/L (21-32) Anion Gap 7 mmol/L (5-15) Blood Urea Nitrogen 13 mg/dL (7-18) Creatinine 0.6 MG/DL (0.55-1.30) Estimat Glomerular Filtration Rate mL/min (>60) Glucose Level 151 MG/DL (74-106) H Calcium Level 8.6 MG/DL (8.5-10.1) Alfonso Huff MD Apr 02, 2018 08:15
--- NOTE | 2018-04-02 08:53 | Nephrology Progress Note ---
Assessment/Plan Assessment/Plan 1. Resp Failure- Patient self extubated. Stable. Transfer to [facility] - angioedema from [facility]. - [facility] stopped + wean steroids 2. Chronic AFib with RVR- restarted coumadin. On heaprin gtt bridge. INR at 1.5 3. HTN- stable 4. DVT Prophylaxsis- on anticoagulation 5. ACS/Elevated Trop I- AM pending. defer to cardiology - On heparin gtt 6. Hypokalemia- being replaced Transfer to [facility] today Subjective Date patient seen: Apr 02, 2018 Time patient seen: 08:51 ROS Limited/Unobtainable: No Constitutional: Reports: weakness Allergies: Coded Allergies: SULFA (SULFONAMIDE ANTIBIOTICS) (Verified Allergy, Severe, Itching, ) Uncoded Allergies: SULFA (Allergy, Unknown, 03/30/18) All Systems: reviewed and negative except above Subjective Patient self extubated. Feels better and has started to eat Objective Last 24 Hour Vital Signs Date Time Temp Pulse Resp B/P (MAP) Pulse Ox O2 Delivery O2 Flow Rate FiO2 04/02/18 07:00 69 14 137/49 (78) 98 04/02/18 06:00 60 15 129/86 (100) 98 04/02/18 05:00 64 15 123/39 (67) 98 04/02/18 04:00 Room Air 04/02/18 04:00 49 04/02/18 04:00 98.0 63 15 118/46 (70) 98 98.0 04/02/18 03:00 63 16 134/73 (93) 98 04/02/18 02:00 50 16 152/54 (86) 98 04/02/18 01:00 58 16 156/53 (87) 98 04/02/18 00:00 98.4 51 15 138/63 (88) 98 98.4 04/02/18 00:00 Room Air 04/02/18 00:00 50 04/01/18 23:00 50 15 157/88 (111) 98 04/01/18 22:00 48 15 150/59 (89) 98 04/01/18 21:00 52 15 134/51 (78) 98 04/01/18 20:00 98.6 53 15 138/53 (81) 98 98.6 04/01/18 20:00 53 04/01/18 20:00 Room Air 04/01/18 20:00 Room Air 04/01/18 19:00 66 18 127/71 (89) 97 04/01/18 18:54 Nasal Cannula 2.0 28 04/01/18 18:54 98 Nasal Cannula 2.0 28 04/01/18 18:53 79 17 Nasal Cannula 2.0 28 04/01/18 18:00 51 18 157/61 (93) 94 04/01/18 17:00 51 18 128/50 (76) 95 04/01/18 17:00 Room Air 04/01/18 16:00 98.8 46 18 135/52 (79) 95 98.8 04/01/18 16:00 53 04/01/18 15:00 63 18 135/41 (72) 96 04/01/18 14:00 52 18 113/44 (67) 96 04/01/18 13:00 52 18 153/60 (91) 96 04/01/18 12:00 Room Air 04/01/18 12:00 68 04/01/18 12:00 98.2 54 18 128/48 (74) 96 98.2 04/01/18 11:00 52 18 110/45 (66) 96 04/01/18 10:00 60 17 130/48 (75) 95 04/01/18 09:00 63 17 108/79 (89) 95 Intake and Output 04/01/18 04/02/18 19:00 07:00 Intake Total 820.098 ml 267.468 ml Output Total 400 ml 555 ml Balance 420.098 ml -287.532 ml Intake Oral 280 ml 60 ml IV Total 540.098 ml 207.468 ml Output Urine Total 400 ml 555 ml Laboratory Tests 04/01/18 09:00: Troponin I 2.621H 04/02/18 05:30: White Blood Count 10.0, Red Blood Count 3.83L, Hemoglobin 11.6L, Hematocrit 34.7L, Mean Corpuscular Volume 91, Mean Corpuscular Hemoglobin 30.2, Mean Corpuscular Hemoglobin Concent 33.4, Red Cell Distribution Width 12.2, Platelet Count 170, Mean Platelet Volume 9.4, Neutrophils (%) (Auto) 83.3H, Lymphocytes ( %) (Auto) 13.0L, Monocytes (%) (Auto) 3.5, Eosinophils (%) (Auto) 0.0, Basophils (%) (Auto) 0.2, Prothrombin Time 15.5H, Prothromb Time International Ratio 1.5H, Activated Partial Thromboplast Time 72H, Sodium Level 142, Potassium Level 3.2L, Chloride Level 105, Carbon Dioxide Level 30, Anion Gap 7, Blood Urea Nitrogen 13, Creatinine 0.6, Estimat Glomerular Filtration Rate , Glucose Level 151H, Calcium Level 8.6 Height (Feet): 5 Height (Inches): 6.00 Weight (Pounds): 238 General Appearance: no apparent distress, alert EENT: normal ENT inspection, TMs normal Neck: normal alignment, supple Cardiovascular: normal rate, regular rhythm Respiratory/Chest: lungs clear, normal breath sounds Abdomen: normal bowel sounds, non tender, soft Edema: no edema noted Arm (L), no edema noted Arm (R), no edema noted Leg (L), no edema noted Leg (R), no edema noted Pedal (L), no edema noted Pedal (R), no edema noted Generalized Vladimir Biswas M.D. Apr 02, 2018 08:53
[2018-04-02] MEDS: Atenolol 25mg tab ORAL SCH (09:00)
[2018-04-02] MEDS: Allopurinol 100mg Tab ORAL SCH (09:14)
[2018-04-02] MEDS: Heparin 25,000u/D5W 500ml 500 ML IV SCH (10:05)
--- NOTE | 2018-04-02 10:56 | Consultation ---
History of Present Illness General Date patient seen: Apr 02, 2018 Chief Complaint: Allergic Reaction Present Illness Allergies: Coded Allergies: SULFA (SULFONAMIDE ANTIBIOTICS) (Verified Allergy, Severe, Itching, ) Medication History Scheduled Allopurinol* (Zyloprim*), 100 MG PO DAILY, (Reported) Atenolol (Tenormin), 25 MG PO DAILY, (Reported) Benzonatate (Tessalon Perle), 100 MG ORAL THREE TIMES A DAY Gabapentin* (Neurontin*), 400 MG PO DAILY, (Reported) Hydrochlorothiazide* (Hydrochlorothiazide*), 50 MG PO DAILY, (Reported) Lisinopril* (Zestril*), 40 MG PO DAILY, (Reported) Lovastatin (Lovastatin), 10 MG PO DAILY, (Reported) Omeprazole (Omeprazole), 20 MG PO DAILY, (Reported) Oxybutynin Chloride* (Ditropan*), 5 MG PO BID, (Reported) Warfarin Sod (Coumadin*), 7.5 MG PO EVERY OTHER DAY, (Reported) Warfarin Sod* (Coumadin*), 5 MG PO EVERY OTHER DAY, (Reported) Scheduled PRN Albuterol Sulfate* (Albuterol Sulfate Mdi*), 2 PUFF INH Q6H PRN for Shortness of Breath Patient History Healthcare decision maker Asim Little Resuscitation status Full Code Advanced Directive on File Physical Exam Last 24 Hour Vital Signs Date Time Temp Pulse Resp B/P (MAP) Pulse Ox O2 Delivery O2 Flow Rate FiO2 04/02/18 10:00 74 16 125/49 (74) 98 04/02/18 09:00 80 104/45 04/02/18 09:00 81 17 104/45 (64) 99 04/02/18 08:00 Room Air 04/02/18 08:00 98.4 73 18 119/71 (87) 98 98.4 04/02/18 07:15 98 Nasal Cannula 2.0 28 04/02/18 07:15 Nasal Cannula 2.0 28 04/02/18 07:00 69 14 137/49 (78) 98 04/02/18 06:00 60 15 129/86 (100) 98 04/02/18 05:00 64 15 123/39 (67) 98 04/02/18 04:00 Room Air 04/02/18 04:00 49 04/02/18 04:00 98.0 63 15 118/46 (70) 98 98.0 04/02/18 03:00 63 16 134/73 (93) 98 04/02/18 02:00 50 16 152/54 (86) 98 04/02/18 01:00 58 16 156/53 (87) 98 04/02/18 00:00 98.4 51 15 138/63 (88) 98 98.4 04/02/18 00:00 Room Air 04/02/18 00:00 50 04/01/18 23:00 50 15 157/88 (111) 98 04/01/18 22:00 48 15 150/59 (89) 98 04/01/18 21:00 52 15 134/51 (78) 98 04/01/18 20:00 98.6 53 15 138/53 (81) 98 98.6 04/01/18 20:00 53 04/01/18 20:00 Room Air 04/01/18 20:00 Room Air 04/01/18 19:00 66 18 127/71 (89) 97 04/01/18 18:54 Nasal Cannula 2.0 28 04/01/18 18:54 98 Nasal Cannula 2.0 28 04/01/18 18:53 79 17 Nasal Cannula 2.0 28 04/01/18 18:00 51 18 157/61 (93) 94 04/01/18 17:00 51 18 128/50 (76) 95 04/01/18 17:00 Room Air 04/01/18 16:00 98.8 46 18 135/52 (79) 95 98.8 04/01/18 16:00 53 04/01/18 15:00 63 18 135/41 (72) 96 04/01/18 14:00 52 18 113/44 (67) 96 04/01/18 13:00 52 18 153/60 (91) 96 04/01/18 12:00 Room Air 04/01/18 12:00 68 04/01/18 12:00 98.2 54 18 128/48 (74) 96 98.2 04/01/18 11:00 52 18 110/45 (66) 96 Intake and Output 04/01/18 04/02/18 19:00 07:00 Intake Total 820.098 ml 290.520 ml Output Total 400 ml 555 ml Balance 420.098 ml -264.480 ml Intake Oral 280 ml 60 ml IV Total 540.098 ml 230.520 ml Output Urine Total 400 ml 555 ml Laboratory Tests Test 04/02/18 05:30 04/02/18 09:25 White Blood Count 10.0 K/UL (4.8-10.8) Red Blood Count 3.83 M/UL (4.20-5.40) L Hemoglobin 11.6 G/DL (12.0-16.0) L Hematocrit 34.7 % (37.0-47.0) L Mean Corpuscular Volume 91 FL (80-99) Mean Corpuscular Hemoglobin 30.2 PG (27.0-31.0) Mean Corpuscular Hemoglobin Concent 33.4 G/DL (32.0-36.0) Red Cell Distribution Width 12.2 % (11.6-14.8) Platelet Count 170 K/UL (150-450) Mean Platelet Volume 9.4 FL (6.5-10.1) Neutrophils (%) (Auto) 83.3 % (45.0-75.0) H Lymphocytes (%) (Auto) 13.0 % (20.0-45.0) L Monocytes (%) (Auto) 3.5 % (1.0-10.0) Eosinophils (%) (Auto) 0.0 % (0.0-3.0) Basophils (%) (Auto) 0.2 % (0.0-2.0) Prothrombin Time 15.5 SEC (9.30-11.50) H Prothromb Time International Ratio 1.5 (0.9-1.1) H Activated Partial Thromboplast Time 72 SEC (23-33) H Sodium Level 142 MMOL/L (136-145) Potassium Level 3.2 MMOL/L (3.5-5.1) L Chloride Level 105 MMOL/L (98-107) Carbon Dioxide Level 30 MMOL/L (21-32) Anion Gap 7 mmol/L (5-15) Blood Urea Nitrogen 13 mg/dL (7-18) Creatinine 0.6 MG/DL (0.55-1.30) Estimat Glomerular Filtration Rate mL/min (>60) Glucose Level 151 MG/DL (74-106) H Calcium Level 8.6 MG/DL (8.5-10.1) Troponin I 0.804 ng/mL (0.000-0.056) Height (Feet): 5 Height (Inches): 6.00 Weight (Pounds): 238 Medications Current Medications Medications (Trade) Dose Ordered Sig/Lashay Route PRN Reason Start Time Stop Time Status Last Admin Dose Admin Allopurinol (Zyloprim) 100 mg DAILY ORAL 03/31/18 09:00 04/30/18 08:59 04/02/18 09:14 Atenolol (Tenormin) 25 mg DAILY ORAL 03/31/18 09:00 04/30/18 08:59 04/01/18 08:27 Atorvastatin Calcium (Lipitor) 20 mg BEDTIME ORAL 03/30/18 21:00 04/29/18 20:59 04/01/18 21:10 Dextrose (Dextrose 50%) 25 ml STAT PRN IV Hypoglycemia 04/01/18 08:15 05/01/18 08:14 Dextrose (Dextrose 50%) 50 ml STAT PRN IV Hypoglycemia 04/01/18 08:15 05/01/18 08:14 Famotidine (Pepcid) 20 mg BID ORAL 03/31/18 09:00 04/30/18 08:59 04/02/18 09:14 Fentanyl Citrate 1000 mcg/Sodium Chloride 100 ml @ 0 mls/hr Q24H IV 03/30/18 18:00 04/06/18 17:59 03/31/18 00:26 Heparin Sodium/ Dextrose 500 ml @ 23.052 mls/ hr adjust per protocol IV 03/31/18 12:45 04/30/18 12:44 04/02/18 10:05 Hydrochlorothiazide (Hydrodiuril) 25 mg DAILY ORAL 03/31/18 09:00 04/30/18 08:59 04/02/18 09:13 Insulin Aspart (NovoLOG) BEFORE MEALS AND HS SUBQ 04/01/18 11:30 05/01/18 11:29 04/02/18 06:22 Labetalol HCl (Normodyne) 10 mg Q4H PRN IV For High Blood Pressure 03/30/18 13:00 04/29/18 12:59 Lorazepam (Ativan 2mg/ml 1ml) 2 mg Q4H PRN IV For Anxiety 03/30/18 15:45 04/06/18 15:44 04/01/18 18:05 Methylprednisolone Sodium Succinate (Solu-MEDROL) 30 mg BID IVP 04/02/18 18:00 05/02/18 17:59 Ondansetron HCl (Zofran) 4 mg Q6H PRN IVP Nausea & Vomiting 03/30/18 13:00 04/29/18 12:59 Potassium Chloride 100 ml @ 100 mls/hr NOW IVPB 04/02/18 10:00 04/02/18 11:30 04/02/18 10:03 Warfarin Sodium (Coumadin per pharmacy) 1 ea DAILY PRN MISC Per rx protocol 03/31/18 08:00 04/30/18 07:59 Warfarin Sodium (Coumadin) 5 mg COUMADIN ORAL 04/02/18 17:00 04/02/18 18:00 Assessment/Plan Assessment/Plan Early dementia Encephalopathy Seroquel 12.5 mg q 4hr/prn Lexapro 10mg Dane Leon MD Apr 02, 2018 10:56
--- NOTE | 2018-04-02 12:47 | Diagnostic Imaging Report ---
Indication: Dyspnea. Neck pain Comparison: None Findings: Two views of the neck performed. There is soft tissue fullness in the floor the mouth. The epiglottis is probably normal. The base of the epiglottis is calcified. No obvious radiopaque foreign body identified. Moderate degenerative disease of the cervical spine noted. Carotid bifurcation calcifications are moderate. The bones are osteopenic. IMPRESSION: Soft tissue swelling at the base of the mouth. Correlate clinically. Consider CT for further evaluation. Other incidental findings as above.
--- NOTE | 2018-04-02 15:30 | Cardiac Electrophysiology PN ---
Assessment/Plan Assessment/Plan 1. Shortness of breath with angioedema due to lisinopril. Extubated. 2. Paroxysmal atrial fibrillation. On heparin and Coumadin 3. Hypertension, on atenolol 25 mg daily and hydrochlorothiazide 25 mg daily. 4. Troponin elevation, 2.9,2.6,0.8. No chest pain on heparin and atenolol. Echo EF 60% 5. Status post angioedema secondary to lisinopril, currently on Solu-Medrol. 6. Hyperlipidemia, on Lipitor. UZIEL RN Subjective Subjective In ICU. In SR. Confused. Troponin still elevated. On heparin drip. Objective Last 24 Hour Vital Signs Date Time Temp Pulse Resp B/P (MAP) Pulse Ox O2 Delivery O2 Flow Rate FiO2 04/02/18 15:00 58 18 151/66 (94) 97 04/02/18 14:00 66 18 133/66 (88) 98 04/02/18 13:00 75 19 135/64 (87) 98 04/02/18 12:00 98.2 95 15 129/62 (84) 98 98.2 04/02/18 12:00 85 04/02/18 12:00 Room Air 04/02/18 11:00 74 15 119/60 (79) 98 04/02/18 10:00 74 16 125/49 (74) 98 04/02/18 09:00 80 104/45 04/02/18 09:00 81 17 104/45 (64) 99 04/02/18 08:00 Room Air 04/02/18 08:00 73 04/02/18 08:00 98.4 73 18 119/71 (87) 98 98.4 04/02/18 07:15 98 Nasal Cannula 2.0 28 04/02/18 07:15 Nasal Cannula 2.0 28 04/02/18 07:00 69 14 137/49 (78) 98 04/02/18 06:00 60 15 129/86 (100) 98 04/02/18 05:00 64 15 123/39 (67) 98 04/02/18 04:00 Room Air 04/02/18 04:00 49 04/02/18 04:00 98.0 63 15 118/46 (70) 98 98.0 04/02/18 03:00 63 16 134/73 (93) 98 04/02/18 02:00 50 16 152/54 (86) 98 04/02/18 01:00 58 16 156/53 (87) 98 04/02/18 00:00 98.4 51 15 138/63 (88) 98 98.4 04/02/18 00:00 Room Air 04/02/18 00:00 50 04/01/18 23:00 50 15 157/88 (111) 98 04/01/18 22:00 48 15 150/59 (89) 98 04/01/18 21:00 52 15 134/51 (78) 98 04/01/18 20:00 98.6 53 15 138/53 (81) 98 98.6 04/01/18 20:00 53 04/01/18 20:00 Room Air 04/01/18 20:00 Room Air 04/01/18 19:00 66 18 127/71 (89) 97 04/01/18 18:54 Nasal Cannula 2.0 28 04/01/18 18:54 98 Nasal Cannula 2.0 28 04/01/18 18:53 79 17 Nasal Cannula 2.0 28 04/01/18 18:00 51 18 157/61 (93) 94 04/01/18 17:00 51 18 128/50 (76) 95 04/01/18 17:00 Room Air 04/01/18 16:00 98.8 46 18 135/52 (79) 95 98.8 04/01/18 16:00 53 Intake and Output 04/01/18 04/02/18 19:00 07:00 Intake Total 820.098 ml 290.520 ml Output Total 400 ml 555 ml Balance 420.098 ml -264.480 ml Intake Oral 280 ml 60 ml IV Total 540.098 ml 230.520 ml Output Urine Total 400 ml 555 ml Laboratory Tests Test 04/02/18 05:30 04/02/18 09:25 White Blood Count 10.0 K/UL (4.8-10.8) Red Blood Count 3.83 M/UL (4.20-5.40) L Hemoglobin 11.6 G/DL (12.0-16.0) L Hematocrit 34.7 % (37.0-47.0) L Mean Corpuscular Volume 91 FL (80-99) Mean Corpuscular Hemoglobin 30.2 PG (27.0-31.0) Mean Corpuscular Hemoglobin Concent 33.4 G/DL (32.0-36.0) Red Cell Distribution Width 12.2 % (11.6-14.8) Platelet Count 170 K/UL (150-450) Mean Platelet Volume 9.4 FL (6.5-10.1) Neutrophils (%) (Auto) 83.3 % (45.0-75.0) H Lymphocytes (%) (Auto) 13.0 % (20.0-45.0) L Monocytes (%) (Auto) 3.5 % (1.0-10.0) Eosinophils (%) (Auto) 0.0 % (0.0-3.0) Basophils (%) (Auto) 0.2 % (0.0-2.0) Prothrombin Time 15.5 SEC (9.30-11.50) H Prothromb Time International Ratio 1.5 (0.9-1.1) H Activated Partial Thromboplast Time 72 SEC (23-33) H Sodium Level 142 MMOL/L (136-145) Potassium Level 3.2 MMOL/L (3.5-5.1) L Chloride Level 105 MMOL/L (98-107) Carbon Dioxide Level 30 MMOL/L (21-32) Anion Gap 7 mmol/L (5-15) Blood Urea Nitrogen 13 mg/dL (7-18) Creatinine 0.6 MG/DL (0.55-1.30) Estimat Glomerular Filtration Rate mL/min (>60) Glucose Level 151 MG/DL (74-106) H Calcium Level 8.6 MG/DL (8.5-10.1) Troponin I 0.804 ng/mL (0.000-0.056) Microbiology Date/Time Source Procedure Growth Status 03/31/18 18:20 Blood Blood Culture - Preliminary NO GROWTH AFTER 24 HOURS Resulted 03/31/18 18:20 Blood Blood Culture - Preliminary NO GROWTH AFTER 24 HOURS Resulted Objective HEAD AND NECK: No JVD. Still her Lips are swollen. LUNGS: Clear. CARDIOVASCULAR: Regular S1 and S2 with no gallop or murmur. ABDOMEN: Morbidly obese. EXTREMITIES: No pitting edema. Arvin Chen MD Apr 02, 2018 15:30
--- NOTE | 2018-04-02 16:46 | Infectious Diseases Prog Note ---
Assessment/Plan Problems: (1) Angioedema Assessment & Plan: isolated, no evidence of infectious etiology, with negative blood culture and normal CRP/ESR , await complements level , avoid causes such as YAYA INH (2) Acute respiratory failure Assessment & Plan: due to the above , intubated , S/P self extubation , monitor CXR , pulmonary is following (3) Bronchitis Assessment & Plan: due to angioedema , continue nebulizers as needed , keep off antibiotics (4) Longstanding persistent atrial fibrillation Assessment & Plan: continue rate controlling meds , cardiology is following Subjective Constitutional: Reports: no symptoms HEENT: Reports: no symptoms Respiratory: Reports: no symptoms Breasts: Reports: no symptoms Cardiovascular: Reports: no symptoms Gastrointestinal/Abdominal: Reports: no symptoms Genitourinary: Reports: no symptoms Neurologic: Reports: no symptoms Psychiatric: Reports: no symptoms Skin: Reports: no symptoms Endocrine: Reports: no symptoms Hematologic: Reports: no symptoms Musculoskeletal: Reports: no symptoms Allergies: Coded Allergies: SULFA (SULFONAMIDE ANTIBIOTICS) (Verified Allergy, Severe, Itching, ) Objective Vital Signs Last 24 Hour Vital Signs Date Time Temp Pulse Resp B/P (MAP) Pulse Ox O2 Delivery O2 Flow Rate FiO2 04/02/18 16:00 55 04/02/18 16:00 53 16 153/63 (93) 97 04/02/18 15:00 58 18 151/66 (94) 97 04/02/18 14:00 66 18 133/66 (88) 98 04/02/18 13:00 75 19 135/64 (87) 98 04/02/18 12:00 98.2 95 15 129/62 (84) 98 98.2 04/02/18 12:00 85 04/02/18 12:00 Room Air 04/02/18 11:00 74 15 119/60 (79) 98 04/02/18 10:00 74 16 125/49 (74) 98 04/02/18 09:00 80 104/45 04/02/18 09:00 81 17 104/45 (64) 99 04/02/18 08:00 Room Air 04/02/18 08:00 73 04/02/18 08:00 98.4 73 18 119/71 (87) 98 98.4 04/02/18 07:15 98 Nasal Cannula 2.0 28 04/02/18 07:15 Nasal Cannula 2.0 28 04/02/18 07:00 69 14 137/49 (78) 98 04/02/18 06:00 60 15 129/86 (100) 98 04/02/18 05:00 64 15 123/39 (67) 98 04/02/18 04:00 Room Air 04/02/18 04:00 49 04/02/18 04:00 98.0 63 15 118/46 (70) 98 98.0 04/02/18 03:00 63 16 134/73 (93) 98 04/02/18 02:00 50 16 152/54 (86) 98 04/02/18 01:00 58 16 156/53 (87) 98 04/02/18 00:00 98.4 51 15 138/63 (88) 98 98.4 04/02/18 00:00 Room Air 04/02/18 00:00 50 04/01/18 23:00 50 15 157/88 (111) 98 04/01/18 22:00 48 15 150/59 (89) 98 04/01/18 21:00 52 15 134/51 (78) 98 04/01/18 20:00 98.6 53 15 138/53 (81) 98 98.6 04/01/18 20:00 53 04/01/18 20:00 Room Air 04/01/18 20:00 Room Air 04/01/18 19:00 66 18 127/71 (89) 97 04/01/18 18:54 Nasal Cannula 2.0 28 04/01/18 18:54 98 Nasal Cannula 2.0 28 04/01/18 18:53 79 17 Nasal Cannula 2.0 28 04/01/18 18:00 51 18 157/61 (93) 94 04/01/18 17:00 51 18 128/50 (76) 95 04/01/18 17:00 Room Air Height (Feet): 5 Height (Inches): 6.00 Weight (Pounds): 238 General Appearance: WD/WN, no acute distress HEENT: normocephalic, atraumatic, anicteric, mucous membranes moist Respiratory/Chest: chest wall non-tender, lungs clear, no respiratory distress , no accessory muscle use, decreased breath sounds Cardiovascular: normal peripheral pulses, normal rate, regular rhythm, no gallop/murmur, no JVD Abdomen: normal bowel sounds, soft, non tender, no organomegaly, non distended , no mass, no scars Extremities: no cyanosis, no clubbing Skin: no rash, no lesions, no ulcers Neurologic/Psychiatric: alert, responsive Lymphatic: no neck adenopathy, no groin adenopathy Microbiology Date/Time Source Procedure Growth Status 03/31/18 18:20 Blood Blood Culture - Preliminary NO GROWTH AFTER 24 HOURS Resulted 03/31/18 18:20 Blood Blood Culture - Preliminary NO GROWTH AFTER 24 HOURS Resulted Laboratory Tests Test 04/02/18 05:30 04/02/18 09:25 04/02/18 15:50 White Blood Count 10.0 K/UL (4.8-10.8) Red Blood Count 3.83 M/UL (4.20-5.40) L Hemoglobin 11.6 G/DL (12.0-16.0) L Hematocrit 34.7 % (37.0-47.0) L Mean Corpuscular Volume 91 FL (80-99) Mean Corpuscular Hemoglobin 30.2 PG (27.0-31.0) Mean Corpuscular Hemoglobin Concent 33.4 G/DL (32.0-36.0) Red Cell Distribution Width 12.2 % (11.6-14.8) Platelet Count 170 K/UL (150-450) Mean Platelet Volume 9.4 FL (6.5-10.1) Neutrophils (%) (Auto) 83.3 % (45.0-75.0) H Lymphocytes (%) (Auto) 13.0 % (20.0-45.0) L Monocytes (%) (Auto) 3.5 % (1.0-10.0) Eosinophils (%) (Auto) 0.0 % (0.0-3.0) Basophils (%) (Auto) 0.2 % (0.0-2.0) Prothrombin Time 15.5 SEC (9.30-11.50) H Prothromb Time International Ratio 1.5 (0.9-1.1) H Activated Partial Thromboplast Time 72 SEC (23-33) H Sodium Level 142 MMOL/L (136-145) Potassium Level 3.2 MMOL/L (3.5-5.1) L Chloride Level 105 MMOL/L (98-107) Carbon Dioxide Level 30 MMOL/L (21-32) Anion Gap 7 mmol/L (5-15) Blood Urea Nitrogen 13 mg/dL (7-18) Creatinine 0.6 MG/DL (0.55-1.30) Estimat Glomerular Filtration Rate mL/min (>60) Glucose Level 151 MG/DL (74-106) H Calcium Level 8.6 MG/DL (8.5-10.1) Troponin I 0.804 ng/mL (0.000-0.056) Pending Current Medications Medications (Trade) Dose Ordered Sig/Lashay Route PRN Reason Start Time Stop Time Status Last Admin Dose Admin Allopurinol (Zyloprim) 100 mg DAILY ORAL 03/31/18 09:00 04/30/18 08:59 04/02/18 09:14 Atenolol (Tenormin) 25 mg DAILY ORAL 03/31/18 09:00 04/30/18 08:59 04/01/18 08:27 Atorvastatin Calcium (Lipitor) 20 mg BEDTIME ORAL 03/30/18 21:00 04/29/18 20:59 04/01/18 21:10 Dextrose (Dextrose 50%) 25 ml STAT PRN IV Hypoglycemia 04/01/18 08:15 05/01/18 08:14 Dextrose (Dextrose 50%) 50 ml STAT PRN IV Hypoglycemia 04/01/18 08:15 05/01/18 08:14 Escitalopram Oxalate (Lexapro) 10 mg DAILY ORAL 04/02/18 11:00 05/02/18 10:59 Famotidine (Pepcid) 20 mg BID ORAL 03/31/18 09:00 04/30/18 08:59 04/02/18 09:14 Heparin Sodium/ Dextrose 500 ml @ 23.052 mls/ hr adjust per protocol IV 03/31/18 12:45 04/30/18 12:44 04/02/18 10:05 Hydrochlorothiazide (Hydrodiuril) 25 mg DAILY ORAL 03/31/18 09:00 04/30/18 08:59 04/02/18 09:13 Insulin Aspart (NovoLOG) BEFORE MEALS AND HS SUBQ 04/01/18 11:30 05/01/18 11:29 04/02/18 14:03 Labetalol HCl (Normodyne) 10 mg Q4H PRN IV For High Blood Pressure 03/30/18 13:00 04/29/18 12:59 Lorazepam (Ativan 2mg/ml 1ml) 2 mg Q4H PRN IV For Anxiety 03/30/18 15:45 04/06/18 15:44 04/01/18 18:05 Methylprednisolone Sodium Succinate (Solu-MEDROL) 30 mg BID IVP 04/02/18 18:00 05/02/18 17:59 Ondansetron HCl (Zofran) 4 mg Q6H PRN IVP Nausea & Vomiting 03/30/18 13:00 04/29/18 12:59 Quetiapine Fumarate (SEROquel) 12.5 mg EVERY 4 HOURS PRN ORAL agitation 04/02/18 11:00 05/02/18 10:59 Warfarin Sodium (Coumadin per pharmacy) 1 ea DAILY PRN MISC Per rx protocol 03/31/18 08:00 04/30/18 07:59 Warfarin Sodium (Coumadin) 5 mg COUMADIN ORAL 04/02/18 17:00 04/02/18 18:00 Alexia Herron M.D. Apr 02, 2018 16:46
[2018-04-02] MEDS ORDERED: Warfarin Sodium 5mg ORAL SCH (17:00)
[2018-04-02] MEDS ORDERED: Solu-MEDROL 40mg Inj IVP SCH (18:00)
[2018-04-02] MEDS: Atorvastatin 20mg tab ORAL SCH (20:28)
[2018-04-02] MEDS ORDERED: Heparin 25,000u/D5W 500ml 500 ML IV SCH (22:00)
[2018-04-02] MEDS ORDERED: LORazepam Inj 2mg/ml 1ml IV PRN (23:45)
[2018-04-03] VITALS: BP 130/72
[2018-04-03] MEDS ORDERED: Labetalol 5mg/ml 20ml vial IV PRN ×2 (01:00→16:00)
[2018-04-03 04:00] VITALS: BP 128/69
[2018-04-03 04:51] LABS: BASOPHILS % (AUTO) 0.3 % (0.0-2.0); HEMATOCRIT 35.5 % (37.0-47.0); HEMOGLOBIN 11.9 G/DL (12.0-16.0); LYMPHOCYTES % (AUTO) 13.2 % (20.0-45.0); MEAN CORPUSCULAR VOLUME 90 FL (80-99); MONOCYTES % (AUTO) 3.5 % (1.0-10.0); NEUTROPHILS % (AUTO) 82.9 % (45.0-75.0); PLATELET COUNT 168 K/UL (150-450); RED BLOOD COUNT 3.95 M/UL (4.20-5.40); RED CELL DISTRIBUTION WIDTH 11.9 % (11.6-14.8); WHITE BLOOD COUNT 10.4 K/UL (4.8-10.8)
[2018-04-03 05:05] LABS: ANION GAP 7 mmol/L (5-15); BLOOD UREA NITROGEN 19 mg/dL (7-18); CALCIUM 8.6 MG/DL (8.5-10.1); CARBON DIOXIDE 32 MMOL/L (21-32); CHLORIDE 103 MMOL/L (98-107); CREATININE 0.7 MG/DL (0.55-1.30); POTASSIUM 3.1 MMOL/L (3.5-5.1); SODIUM 141 MMOL/L (136-145)
[2018-04-03 05:20] LABS: INR 2.3 (0.9-1.1)
[2018-04-03] MEDS: NovoLOG Insulin Flexpen SUBQ SCH ×4 (05:54→20:36)
[2018-04-03] MEDS ORDERED: Propofol 200mg/20ml IV ONE ×2 (07:30)
[2018-04-03 08:00] VITALS: BP 151/82
[2018-04-03] MEDS ORDERED: LORazepam Inj 2mg/ml 1ml IM SCH (08:15)
[2018-04-03] MEDS ORDERED: Haloperidol 5mg/ml Inj IM SCH (08:15)
--- NOTE | 2018-04-03 08:28 | Nephrology Progress Note ---
Assessment/Plan Assessment/Plan 1. Resp Failure- extubated stable - angioedema from YAYA-I, wean steroids 2. Chronic AFib with RVR- Coumadin. DC heaprin gtt bridge. INR at 2.3 3. HTN- stable 4. DVT Prophylaxsis- on anticoagulation 5. ACS/Elevated Trop I- Defer to cardiology as trop I trending down - bradycardia per cardiology evaluation today 6. Hypokalemia- being replaced IV today Subjective Date patient seen: Apr 03, 2018 Time patient seen: 08:23 ROS Limited/Unobtainable: Yes Allergies: Coded Allergies: SULFA (SULFONAMIDE ANTIBIOTICS) (Verified Allergy, Severe, Itching, ) All Systems: reviewed and negative except above Subjective Patient self extubated. Very agitated and pulling out lines Objective Last 24 Hour Vital Signs Date Time Temp Pulse Resp B/P (MAP) Pulse Ox O2 Delivery O2 Flow Rate FiO2 04/03/18 07:38 18 04/03/18 07:38 18 04/03/18 04:00 98.5 71 18 128/69 (88) 99 98.5 04/03/18 04:00 Room Air 04/03/18 04:00 68 04/03/18 00:00 98.0 69 18 130/72 (91) 99 98.0 04/03/18 00:00 Room Air 04/03/18 00:00 68 04/02/18 21:00 69 18 139/81 (100) 99 04/02/18 20:00 Room Air 04/02/18 20:00 97.9 61 17 150/61 (90) 97 97.9 04/02/18 20:00 71 04/02/18 19:11 Nasal Cannula 2.0 28 04/02/18 19:11 97 Nasal Cannula 2.0 28 04/02/18 19:00 66 18 133/95 (108) 98 04/02/18 18:00 50 18 154/60 (91) 94 04/02/18 17:00 98.3 83 18 163/59 (93) 94 98.3 04/02/18 16:00 55 04/02/18 16:00 Room Air 04/02/18 16:00 53 16 153/63 (93) 97 04/02/18 15:00 58 18 151/66 (94) 97 04/02/18 14:00 66 18 133/66 (88) 98 04/02/18 13:00 75 19 135/64 (87) 98 04/02/18 12:00 98.2 95 15 129/62 (84) 98 98.2 04/02/18 12:00 85 04/02/18 12:00 Room Air 04/02/18 11:00 74 15 119/60 (79) 98 04/02/18 10:00 74 16 125/49 (74) 98 04/02/18 09:00 80 104/45 04/02/18 09:00 81 17 104/45 (64) 99 Intake and Output 04/02/18 04/03/18 19:00 07:00 Intake Total 353.572 ml 184.104 ml Output Total 600 ml 900 ml Balance -246.428 ml -715.896 ml Intake Oral 0 ml 50 ml IV Total 353.572 ml 134.104 ml Output Urine Total 600 ml 900 ml Laboratory Tests 04/02/18 09:25: Troponin I 0.804H 04/02/18 15:50: Troponin I 0.617H 04/03/18 04:04: White Blood Count 10.4, Red Blood Count 3.95L, Hemoglobin 11.9L, Hematocrit 35.5L, Mean Corpuscular Volume 90, Mean Corpuscular Hemoglobin 30.0, Mean Corpuscular Hemoglobin Concent 33.4, Red Cell Distribution Width 11.9, Platelet Count 168, Mean Platelet Volume 8.9, Neutrophils (%) (Auto) 82.9H, Lymphocytes ( %) (Auto) 13.2L, Monocytes (%) (Auto) 3.5, Eosinophils (%) (Auto) 0.0, Basophils (%) (Auto) 0.3, Prothrombin Time 23.3H, Prothromb Time International Ratio 2.3H, Activated Partial Thromboplast Time 85H, Sodium Level 141, Potassium Level 3.1L, Chloride Level 103, Carbon Dioxide Level 32, Anion Gap 7, Blood Urea Nitrogen 19H, Creatinine 0.7, Estimat Glomerular Filtration Rate , Glucose Level 163H, Calcium Level 8.6 Height (Feet): 5 Height (Inches): 6.00 Weight (Pounds): 238 General Appearance: no apparent distress, confused EENT: normal ENT inspection Neck: normal alignment, supple Cardiovascular: normal rate, regular rhythm Respiratory/Chest: lungs clear, normal breath sounds Abdomen: non tender, soft Edema: no edema noted Arm (L), no edema noted Arm (R), no edema noted Leg (L), no edema noted Leg (R), no edema noted Pedal (L), no edema noted Pedal (R), no edema noted Generalized Vladimir Biswas M.D. Apr 03, 2018 08:27
[2018-04-03] MEDS ORDERED: Atenolol 25mg tab ORAL SCH (09:00)
[2018-04-03] MEDS: Solu-MEDROL 40mg Inj IVP SCH ×2 (09:00→11:34)
[2018-04-03] MEDS ORDERED: Allopurinol 100mg Tab ORAL SCH (09:00)
[2018-04-03 12:00] VITALS: BP 144/62
--- NOTE | 2018-04-03 13:47 | Diagnostic Imaging Report ---
APPROVED REPORT CPT Code: 87332 Present Symptoms Shortness of breath Risk Factors Obesity Bed Rest DIFFICULT THIGH AREA Technically difficult study due to vessel depth (thigh and calf area). BILATERAL: Imaging reveals a patent deep venous system bilaterally. There is no evidence of thrombus within the femoral, popliteal or tibial segments. The greater saphenous veins are also within normal limits. Doppler indicates normal spontaneous flow within these segments.
[2018-04-03 16:00] VITALS: BP 134/74
[2018-04-03] MEDS ORDERED: LORazepam Inj 2mg/ml 1ml IV PRN (16:00)
--- NOTE | 2018-04-03 16:42 | Cardiac Electrophysiology PN ---
Assessment/Plan Assessment/Plan 1. Shortness of breath with angioedema due to lisinopril. Extubated. 2. Paroxysmal atrial fibrillation. On heparin and Coumadin per Rx 3. Hypertension, on atenolol 25 mg daily and hydrochlorothiazide 25 mg daily. 4. Troponin elevation, 2.9,2.6,0.8. No chest pain on heparin and atenolol. Echo EF 60% 5. Status post angioedema secondary to lisinopril, currently on Solu-Medrol. 6. Hyperlipidemia, on Lipitor. UZIEL RN Subjective Subjective Transferred out of ICU. In SR. Confused in restraints. . On heparin drip. Objective Last 24 Hour Vital Signs Date Time Temp Pulse Resp B/P (MAP) Pulse Ox O2 Delivery O2 Flow Rate FiO2 04/03/18 16:00 97.7 70 14 134/74 (94) 93 97.7 04/03/18 15:52 63 04/03/18 12:00 Room Air 04/03/18 12:00 55 04/03/18 12:00 99.5 60 22 144/62 (89) 98 99.5 04/03/18 08:00 57 04/03/18 08:00 97.3 76 20 151/82 (105) 94 97.3 04/03/18 08:00 Room Air 04/03/18 07:38 18 04/03/18 07:38 18 04/03/18 04:00 98.5 71 18 128/69 (88) 99 98.5 04/03/18 04:00 Room Air 04/03/18 04:00 68 04/03/18 00:00 98.0 69 18 130/72 (91) 99 98.0 04/03/18 00:00 Room Air 04/03/18 00:00 68 04/02/18 21:00 69 18 139/81 (100) 99 04/02/18 20:00 Room Air 04/02/18 20:00 97.9 61 17 150/61 (90) 97 97.9 04/02/18 20:00 71 04/02/18 19:11 Nasal Cannula 2.0 28 04/02/18 19:11 97 Nasal Cannula 2.0 28 04/02/18 19:00 66 18 133/95 (108) 98 04/02/18 18:00 50 18 154/60 (91) 94 04/02/18 17:00 98.3 83 18 163/59 (93) 94 98.3 Intake and Output 04/02/18 04/03/18 19:00 07:00 Intake Total 353.572 ml 184.104 ml Output Total 600 ml 900 ml Balance -246.428 ml -715.896 ml Intake Oral 0 ml 50 ml IV Total 353.572 ml 134.104 ml Output Urine Total 600 ml 900 ml Laboratory Tests Test 04/03/18 04:04 White Blood Count 10.4 K/UL (4.8-10.8) Red Blood Count 3.95 M/UL (4.20-5.40) L Hemoglobin 11.9 G/DL (12.0-16.0) L Hematocrit 35.5 % (37.0-47.0) L Mean Corpuscular Volume 90 FL (80-99) Mean Corpuscular Hemoglobin 30.0 PG (27.0-31.0) Mean Corpuscular Hemoglobin Concent 33.4 G/DL (32.0-36.0) Red Cell Distribution Width 11.9 % (11.6-14.8) Platelet Count 168 K/UL (150-450) Mean Platelet Volume 8.9 FL (6.5-10.1) Neutrophils (%) (Auto) 82.9 % (45.0-75.0) H Lymphocytes (%) (Auto) 13.2 % (20.0-45.0) L Monocytes (%) (Auto) 3.5 % (1.0-10.0) Eosinophils (%) (Auto) 0.0 % (0.0-3.0) Basophils (%) (Auto) 0.3 % (0.0-2.0) Prothrombin Time 23.3 SEC (9.30-11.50) H Prothromb Time International Ratio 2.3 (0.9-1.1) H Activated Partial Thromboplast Time 85 SEC (23-33) H Sodium Level 141 MMOL/L (136-145) Potassium Level 3.1 MMOL/L (3.5-5.1) L Chloride Level 103 MMOL/L (98-107) Carbon Dioxide Level 32 MMOL/L (21-32) Anion Gap 7 mmol/L (5-15) Blood Urea Nitrogen 19 mg/dL (7-18) H Creatinine 0.7 MG/DL (0.55-1.30) Estimat Glomerular Filtration Rate mL/min (>60) Glucose Level 163 MG/DL (74-106) H Calcium Level 8.6 MG/DL (8.5-10.1) Microbiology Date/Time Source Procedure Growth Status 03/31/18 18:20 Blood Blood Culture - Preliminary NO GROWTH AFTER 48 HOURS Resulted 03/31/18 18:20 Blood Blood Culture - Preliminary NO GROWTH AFTER 48 HOURS Resulted Objective HEAD AND NECK: No JVD. . LUNGS: Clear. CARDIOVASCULAR: Regular S1 and S2 with no gallop or murmur. ABDOMEN: Morbidly obese. EXTREMITIES: No pitting edema. Arvin Chen MD Apr 03, 2018 16:42
--- NOTE | 2018-04-03 16:42 | Infectious Diseases Prog Note ---
Assessment/Plan Problems: (1) Angioedema Assessment & Plan: isolated, no evidence of infectious etiology, with negative blood culture and normal CRP/ESR , await complements level , avoid causes such as YAYA INH (2) Acute respiratory failure Assessment & Plan: resolved, due to the above , intubated , S/P self extubation , monitor CXR , pulmonary is following (3) Longstanding persistent atrial fibrillation Assessment & Plan: continue rate controlling meds , cardiology is following Subjective ROS Limited/Unobtainable: Yes Allergies: Coded Allergies: SULFA (SULFONAMIDE ANTIBIOTICS) (Verified Allergy, Severe, Itching, ) Subjective she was agitated earlier and hyperactive, received haldol with ativan, now in deep sleep , not responsive Objective Vital Signs Last 24 Hour Vital Signs Date Time Temp Pulse Resp B/P (MAP) Pulse Ox O2 Delivery O2 Flow Rate FiO2 04/03/18 16:00 97.7 70 14 134/74 (94) 93 97.7 04/03/18 15:52 63 04/03/18 12:00 Room Air 04/03/18 12:00 55 04/03/18 12:00 99.5 60 22 144/62 (89) 98 99.5 04/03/18 08:00 57 04/03/18 08:00 97.3 76 20 151/82 (105) 94 97.3 04/03/18 08:00 Room Air 04/03/18 07:38 18 04/03/18 07:38 18 04/03/18 04:00 98.5 71 18 128/69 (88) 99 98.5 04/03/18 04:00 Room Air 04/03/18 04:00 68 04/03/18 00:00 98.0 69 18 130/72 (91) 99 98.0 04/03/18 00:00 Room Air 04/03/18 00:00 68 04/02/18 21:00 69 18 139/81 (100) 99 04/02/18 20:00 Room Air 04/02/18 20:00 97.9 61 17 150/61 (90) 97 97.9 04/02/18 20:00 71 04/02/18 19:11 Nasal Cannula 2.0 28 04/02/18 19:11 97 Nasal Cannula 2.0 28 04/02/18 19:00 66 18 133/95 (108) 98 04/02/18 18:00 50 18 154/60 (91) 94 04/02/18 17:00 98.3 83 18 163/59 (93) 94 98.3 Height (Feet): 5 Height (Inches): 6.00 Weight (Pounds): 238 General Appearance: WD/WN, no acute distress HEENT: normocephalic, atraumatic, anicteric, supple, no JVD Respiratory/Chest: chest wall non-tender, normal breath sounds, no respiratory distress, no accessory muscle use, decreased breath sounds Cardiovascular: normal peripheral pulses, normal rate, regular rhythm, no gallop/murmur, no JVD Abdomen: normal bowel sounds, soft, non tender, no organomegaly, non distended , no mass, no scars Extremities: no cyanosis, no clubbing Skin: no rash, no lesions, no ulcers Neurologic/Psychiatric: unresponsiveness Microbiology Date/Time Source Procedure Growth Status 03/31/18 18:20 Blood Blood Culture - Preliminary NO GROWTH AFTER 48 HOURS Resulted 03/31/18 18:20 Blood Blood Culture - Preliminary NO GROWTH AFTER 48 HOURS Resulted Laboratory Tests Test 04/03/18 04:04 White Blood Count 10.4 K/UL (4.8-10.8) Red Blood Count 3.95 M/UL (4.20-5.40) L Hemoglobin 11.9 G/DL (12.0-16.0) L Hematocrit 35.5 % (37.0-47.0) L Mean Corpuscular Volume 90 FL (80-99) Mean Corpuscular Hemoglobin 30.0 PG (27.0-31.0) Mean Corpuscular Hemoglobin Concent 33.4 G/DL (32.0-36.0) Red Cell Distribution Width 11.9 % (11.6-14.8) Platelet Count 168 K/UL (150-450) Mean Platelet Volume 8.9 FL (6.5-10.1) Neutrophils (%) (Auto) 82.9 % (45.0-75.0) H Lymphocytes (%) (Auto) 13.2 % (20.0-45.0) L Monocytes (%) (Auto) 3.5 % (1.0-10.0) Eosinophils (%) (Auto) 0.0 % (0.0-3.0) Basophils (%) (Auto) 0.3 % (0.0-2.0) Prothrombin Time 23.3 SEC (9.30-11.50) H Prothromb Time International Ratio 2.3 (0.9-1.1) H Activated Partial Thromboplast Time 85 SEC (23-33) H Sodium Level 141 MMOL/L (136-145) Potassium Level 3.1 MMOL/L (3.5-5.1) L Chloride Level 103 MMOL/L (98-107) Carbon Dioxide Level 32 MMOL/L (21-32) Anion Gap 7 mmol/L (5-15) Blood Urea Nitrogen 19 mg/dL (7-18) H Creatinine 0.7 MG/DL (0.55-1.30) Estimat Glomerular Filtration Rate mL/min (>60) Glucose Level 163 MG/DL (74-106) H Calcium Level 8.6 MG/DL (8.5-10.1) Current Medications Medications (Trade) Dose Ordered Sig/Lashay Route PRN Reason Start Time Stop Time Status Last Admin Dose Admin Allopurinol (Zyloprim) 100 mg DAILY ORAL 04/04/18 09:00 04/30/18 08:59 Atenolol (Tenormin) 25 mg DAILY ORAL 04/04/18 09:00 04/30/18 08:59 Atorvastatin Calcium (Lipitor) 20 mg BEDTIME ORAL 04/03/18 21:00 04/29/18 20:59 Dextrose (Dextrose 50%) 25 ml STAT PRN IV Hypoglycemia 04/03/18 16:00 05/03/18 15:59 Dextrose (Dextrose 50%) 50 ml STAT PRN IV Hypoglycemia 04/03/18 16:00 05/03/18 15:59 Escitalopram Oxalate (Lexapro) 10 mg DAILY ORAL 04/04/18 09:00 05/02/18 10:59 Famotidine (Pepcid) 20 mg BID ORAL 04/03/18 18:00 04/30/18 08:59 Hydrochlorothiazide (Hydrodiuril) 25 mg DAILY ORAL 04/04/18 09:00 04/30/18 08:59 Insulin Aspart (NovoLOG) BEFORE MEALS AND HS SUBQ 04/03/18 16:30 05/01/18 11:29 Labetalol HCl (Normodyne) 10 mg Q4H PRN IV For High Blood Pressure 04/03/18 16:00 04/29/18 15:59 Lorazepam (Ativan 2mg/ml 1ml) 2 mg Q4H PRN IV For Anxiety 04/03/18 16:00 04/06/18 15:59 Methylprednisolone Sodium Succinate (Solu-MEDROL) 30 mg BID IVP 04/03/18 18:00 05/02/18 17:59 Ondansetron HCl (Zofran) 4 mg Q6H PRN IVP Nausea & Vomiting 04/03/18 16:00 04/29/18 15:59 Quetiapine Fumarate (SEROquel) 12.5 mg Q4H PRN ORAL agitation 04/03/18 16:00 05/03/18 15:59 Warfarin Sodium (Coumadin per pharmacy) 1 ea DAILY PRN MISC Per rx protocol 04/04/18 09:00 04/30/18 07:59 Warfarin Sodium (Coumadin) 1 mg COUMADIN ONCE ORAL 04/03/18 17:00 04/03/18 17:01 Alexia Herron M.D. Apr 03, 2018 16:42
[2018-04-03] MEDS ORDERED: Warfarin Sodium 1mg ORAL ONE ×2 (17:00)
[2018-04-03] MEDS ORDERED: Solu-MEDROL 40mg Inj IVP SCH (18:00)
[2018-04-03 20:00] VITALS: BP 160/74
[2018-04-03] MEDS: Atorvastatin 20mg tab ORAL SCH (20:34)
[2018-04-03] MEDS ORDERED: Atorvastatin 20mg tab ORAL SCH (21:00)
--- NOTE | 2018-04-03 22:25 | Pulmonology Progress Note ---
Assessment/Plan Problems: (1) Angioedema (2) Acute respiratory failure (3) Longstanding persistent atrial fibrillation (4) Bronchitis (5) Pulmonary hypertension (6) Obesity (7) NSTEMI (non-ST elevated myocardial infarction) (8) Disoriented Assessment/Plan -Optimize pulmonary hygiene/mobilize as tolerated -PRN O2 -D/C SM, start Pred 40 and taper -D/C Famotidine -No ACEi -F/U complement levels -Aspiration precautions -Monitor MS -DVT Px: A/C -F/U cards and renal recs Subjective Allergies: Coded Allergies: SULFA (SULFONAMIDE ANTIBIOTICS) (Verified Allergy, Severe, Itching, ) Subjective TTF, AFVSS, O2 needs stable, MS waxes and wanes Objective Last 24 Hour Vital Signs Date Time Temp Pulse Resp B/P (MAP) Pulse Ox O2 Delivery O2 Flow Rate FiO2 04/03/18 20:00 98.1 60 20 160/74 (102) 95 98.1 04/03/18 20:00 54 04/03/18 16:00 97.7 70 14 134/74 (94) 93 97.7 04/03/18 15:52 63 04/03/18 12:00 Room Air 04/03/18 12:00 55 04/03/18 12:00 99.5 60 22 144/62 (89) 98 99.5 04/03/18 08:00 57 04/03/18 08:00 97.3 76 20 151/82 (105) 94 97.3 04/03/18 08:00 Room Air 04/03/18 07:38 18 04/03/18 07:38 18 04/03/18 04:00 98.5 71 18 128/69 (88) 99 98.5 04/03/18 04:00 Room Air 04/03/18 04:00 68 04/03/18 00:00 98.0 69 18 130/72 (91) 99 98.0 04/03/18 00:00 Room Air 04/03/18 00:00 68 Intake and Output 04/02/18 04/03/18 19:00 07:00 Intake Total 353.572 ml 184.104 ml Output Total 600 ml 900 ml Balance -246.428 ml -715.896 ml Intake Oral 0 ml 50 ml IV Total 353.572 ml 134.104 ml Output Urine Total 600 ml 900 ml General Appearance: WD/WN, no acute distress, other - obese female HEENT: normocephalic, atraumatic, anicteric, mucous membranes moist Respiratory/Chest: chest wall non-tender, lungs clear, normal breath sounds, no respiratory distress, no accessory muscle use Cardiovascular: normal peripheral pulses, normal rate, regular rhythm Abdomen: normal bowel sounds, soft, non tender, no organomegaly, non distended , no mass Extremities: no cyanosis, no clubbing, no edema Laboratory Tests 04/03/18 04:04: White Blood Count 10.4, Red Blood Count 3.95L, Hemoglobin 11.9L, Hematocrit 35.5L, Mean Corpuscular Volume 90, Mean Corpuscular Hemoglobin 30.0, Mean Corpuscular Hemoglobin Concent 33.4, Red Cell Distribution Width 11.9, Platelet Count 168, Mean Platelet Volume 8.9, Neutrophils (%) (Auto) 82.9H, Lymphocytes ( %) (Auto) 13.2L, Monocytes (%) (Auto) 3.5, Eosinophils (%) (Auto) 0.0, Basophils (%) (Auto) 0.3, Prothrombin Time 23.3H, Prothromb Time International Ratio 2.3H, Activated Partial Thromboplast Time 85H, Sodium Level 141, Potassium Level 3.1L, Chloride Level 103, Carbon Dioxide Level 32, Anion Gap 7, Blood Urea Nitrogen 19H, Creatinine 0.7, Estimat Glomerular Filtration Rate , Glucose Level 163H, Calcium Level 8.6 Current Medications Medications (Trade) Dose Ordered Sig/Lashay Route PRN Reason Start Time Stop Time Status Last Admin Dose Admin Allopurinol (Zyloprim) 100 mg DAILY ORAL 04/04/18 09:00 04/30/18 08:59 Atenolol (Tenormin) 25 mg DAILY ORAL 04/04/18 09:00 04/30/18 08:59 Atorvastatin Calcium (Lipitor) 20 mg BEDTIME ORAL 04/03/18 21:00 04/29/18 20:59 Dextrose (Dextrose 50%) 25 ml STAT PRN IV Hypoglycemia 04/03/18 16:00 05/03/18 15:59 Dextrose (Dextrose 50%) 50 ml STAT PRN IV Hypoglycemia 04/03/18 16:00 05/03/18 15:59 Escitalopram Oxalate (Lexapro) 10 mg DAILY ORAL 04/04/18 09:00 05/02/18 10:59 Famotidine (Pepcid) 20 mg BID ORAL 04/03/18 18:00 04/30/18 08:59 04/03/18 17:39 Hydrochlorothiazide (Hydrodiuril) 25 mg DAILY ORAL 04/04/18 09:00 04/30/18 08:59 Insulin Aspart (NovoLOG) BEFORE MEALS AND HS SUBQ 04/03/18 16:30 05/01/18 11:29 04/03/18 20:36 Labetalol HCl (Normodyne) 10 mg Q4H PRN IV For High Blood Pressure 04/03/18 16:00 04/29/18 15:59 Lorazepam (Ativan 2mg/ml 1ml) 2 mg Q4H PRN IV For Anxiety 04/03/18 16:00 04/06/18 15:59 Methylprednisolone Sodium Succinate (Solu-MEDROL) 30 mg BID IVP 04/03/18 18:00 05/02/18 17:59 04/03/18 17:40 Ondansetron HCl (Zofran) 4 mg Q6H PRN IVP Nausea & Vomiting 04/03/18 16:00 04/29/18 15:59 Quetiapine Fumarate (SEROquel) 12.5 mg Q4H PRN ORAL agitation 04/03/18 16:00 05/03/18 15:59 Warfarin Sodium (Coumadin per pharmacy) 1 ea DAILY PRN MISC Per rx protocol 04/04/18 09:00 04/30/18 07:59 Alfonso Huff MD Apr 03, 2018 22:25
[2018-04-04] VITALS (7 sets, daily range): BP systolic 136–174; BP diastolic 62–88
[2018-04-04 04:52] LABS: HEMATOCRIT 36.8 % (37.0-47.0); MEAN CORPUSCULAR VOLUME 90 FL (80-99); PLATELET COUNT 181 K/UL (150-450); RED BLOOD COUNT 4.08 M/UL (4.20-5.40); RED CELL DISTRIBUTION WIDTH 12.3 % (11.6-14.8); WHITE BLOOD COUNT 13.1 K/UL (4.8-10.8)
[2018-04-04 05:06] LABS: ANION GAP 6 mmol/L (5-15); BLOOD UREA NITROGEN 21 mg/dL (7-18); CALCIUM 8.7 MG/DL (8.5-10.1); CARBON DIOXIDE 32 MMOL/L (21-32); CHLORIDE 104 MMOL/L (98-107); CREATININE 0.8 MG/DL (0.55-1.30); POTASSIUM 3.4 MMOL/L (3.5-5.1); SODIUM 142 MMOL/L (136-145)
[2018-04-04 05:09] LABS: INR 2.2 (0.9-1.1)
[2018-04-04] MEDS: NovoLOG Insulin Flexpen SUBQ SCH ×4 (06:19→22:19)
[2018-04-04] MEDS: Allopurinol 100mg Tab ORAL SCH (08:49)
[2018-04-04] MEDS: Atenolol 25mg tab ORAL SCH (08:50)
--- NOTE | 2018-04-04 09:02 | Nephrology Progress Note ---
Assessment/Plan Assessment/Plan 1. Resp Failure- resolved - angioedema from YAYA-I, weaning steroids 2. Chronic AFib with RVR- Coumadin. INR at 2.2 3. HTN- stable 4. DVT Prophylaxsis- on anticoagulation 5. ACS/Elevated Trop I- Defer to cardiology as trop I trending down 6. Hypokalemia- being replaced today Tx to MedSurg Subjective Date patient seen: Apr 04, 2018 Time patient seen: 09:00 ROS Limited/Unobtainable: No Allergies: Coded Allergies: SULFA (SULFONAMIDE ANTIBIOTICS) (Verified Allergy, Severe, Itching, ) Subjective Patient much improved. Agitation resolved Objective Last 24 Hour Vital Signs Date Time Temp Pulse Resp B/P (MAP) Pulse Ox O2 Delivery O2 Flow Rate FiO2 04/04/18 08:50 92 174/84 04/04/18 04:00 98.1 80 20 152/88 (109) 95 98.1 04/04/18 04:00 66 04/04/18 00:00 98.1 69 22 156/64 (94) 99 98.1 04/04/18 00:00 47 04/03/18 21:00 Room Air 04/03/18 20:00 98.1 60 20 160/74 (102) 95 98.1 04/03/18 20:00 54 04/03/18 16:00 97.7 70 14 134/74 (94) 93 97.7 04/03/18 15:52 63 04/03/18 12:00 Room Air 04/03/18 12:00 55 04/03/18 12:00 99.5 60 22 144/62 (89) 98 99.5 Intake and Output 04/03/18 04/04/18 19:00 07:00 Intake Total 200 ml Output Total 600 ml 4 ml Balance -400 ml -4 ml IV Total 200 ml Output Urine Total 600 ml 4 ml Laboratory Tests 04/04/18 04:00: White Blood Count 13.1H, Red Blood Count 4.08L, Hemoglobin 12.0, Hematocrit 36.8L, Mean Corpuscular Volume 90, Mean Corpuscular Hemoglobin 29.4, Mean Corpuscular Hemoglobin Concent 32.6, Red Cell Distribution Width 12.3, Platelet Count 181, Mean Platelet Volume 9.0, Neutrophils (%) (Auto) , Lymphocytes (%) ( Auto) , Monocytes (%) (Auto) , Eosinophils (%) (Auto) , Basophils (%) (Auto) , Prothrombin Time 22.0H, Prothromb Time International Ratio 2.2H, Activated Partial Thromboplast Time 28, Sodium Level 142, Potassium Level 3.4L, Chloride Level 104, Carbon Dioxide Level 32, Anion Gap 6, Blood Urea Nitrogen 21H, Creatinine 0.8, Estimat Glomerular Filtration Rate , Glucose Level 145H, Calcium Level 8.7 Height (Feet): 5 Height (Inches): 6.00 Weight (Pounds): 232 General Appearance: WD/WN, no apparent distress EENT: normal ENT inspection Neck: non-tender, normal alignment, supple Cardiovascular: normal rate, regular rhythm Respiratory/Chest: lungs clear, normal breath sounds Abdomen: non tender, soft Edema: no edema noted Arm (L), no edema noted Arm (R), no edema noted Leg (L), no edema noted Leg (R), no edema noted Pedal (L), no edema noted Pedal (R), no edema noted Generalized Vladimir Biswas M.D. Apr 04, 2018 09:02
[2018-04-04] MEDS: Lactulose 20gm/30ml UDC ORAL SCH ×2 (13:39→17:22)
--- NOTE | 2018-04-04 16:30 | Cardiology Progress Note ---
Assessment/Plan Status: stable Assessment/Plan Assessment/Plan 1. Shortness of breath with angioedema due to lisinopril. Extubated. 2. Paroxysmal atrial fibrillation. On heparin and Coumadin per Rx 3. Hypertension, on atenolol 25 mg daily and hydrochlorothiazide 25 mg daily. 4. Troponin elevation, 2.9, 2.6, 0.8. No chest pain on heparin and atenolol. Echo EF 60% , no indication for cardiac cath 5. Status post angioedema secondary to lisinopril, currently on Solu-Medrol. 6. Hyperlipidemia, on Lipitor. Subjective Cardiovascular: Reports: no symptoms Respiratory: Reports: no symptoms Gastrointestinal/Abdominal: Reports: no symptoms Genitourinary: Reports: no symptoms Subjective No acute events. Patient awake in bed, alert and verbally responsive. Able to follow directions. Denies pain at this time. No signs of acute distress Objective Last 24 Hour Vital Signs Date Time Temp Pulse Resp B/P (MAP) Pulse Ox O2 Delivery O2 Flow Rate FiO2 04/04/18 12:00 82 04/04/18 12:00 97.6 86 20 151/75 (100) 97 97.6 04/04/18 09:30 136/68 (90) 04/04/18 09:00 Room Air 04/04/18 08:50 92 174/84 04/04/18 08:00 98 04/04/18 08:00 97.4 98 19 174/84 (114) 99 97.4 04/04/18 04:00 98.1 80 20 152/88 (109) 95 98.1 04/04/18 04:00 66 04/04/18 00:00 98.1 69 22 156/64 (94) 99 98.1 04/04/18 00:00 47 04/03/18 21:00 Room Air 04/03/18 20:00 98.1 60 20 160/74 (102) 95 98.1 04/03/18 20:00 54 General Appearance: no apparent distress EENT: PERRL/EOMI Neck: non-tender Rhythm: NSR Cardiovascular: normal peripheral pulses Respiratory/Chest: chest wall non-tender, lungs clear Abdomen: normal bowel sounds Extremities: normal range of motion Neurologic: thermometer tester II-XII grossly normal Intake and Output 04/03/18 04/04/18 19:00 07:00 Intake Total 200 ml Output Total 600 ml 4 ml Balance -400 ml -4 ml IV Total 200 ml Output Urine Total 600 ml 4 ml Laboratory Tests Test 04/04/18 04:00 White Blood Count 13.1 K/UL (4.8-10.8) H Red Blood Count 4.08 M/UL (4.20-5.40) L Hemoglobin 12.0 G/DL (12.0-16.0) Hematocrit 36.8 % (37.0-47.0) L Mean Corpuscular Volume 90 FL (80-99) Mean Corpuscular Hemoglobin 29.4 PG (27.0-31.0) Mean Corpuscular Hemoglobin Concent 32.6 G/DL (32.0-36.0) Red Cell Distribution Width 12.3 % (11.6-14.8) Platelet Count 181 K/UL (150-450) Mean Platelet Volume 9.0 FL (6.5-10.1) Neutrophils (%) (Auto) % (45.0-75.0) Lymphocytes (%) (Auto) % (20.0-45.0) Monocytes (%) (Auto) % (1.0-10.0) Eosinophils (%) (Auto) % (0.0-3.0) Basophils (%) (Auto) % (0.0-2.0) Prothrombin Time 22.0 SEC (9.30-11.50) H Prothromb Time International Ratio 2.2 (0.9-1.1) H Activated Partial Thromboplast Time 28 SEC (23-33) Sodium Level 142 MMOL/L (136-145) Potassium Level 3.4 MMOL/L (3.5-5.1) L Chloride Level 104 MMOL/L (98-107) Carbon Dioxide Level 32 MMOL/L (21-32) Anion Gap 6 mmol/L (5-15) Blood Urea Nitrogen 21 mg/dL (7-18) H Creatinine 0.8 MG/DL (0.55-1.30) Estimat Glomerular Filtration Rate mL/min (>60) Glucose Level 145 MG/DL (74-106) H Calcium Level 8.7 MG/DL (8.5-10.1) Dimitris Posey M.D. Apr 04, 2018 16:30
[2018-04-04] MEDS ORDERED: Warfarin Sodium 2.5mg ORAL ONE (17:00)
[2018-04-04] MEDS ORDERED: Tubing IV Secondary IV ONE (17:32)
[2018-04-04] MEDS ORDERED: NS 275ml ONE (17:32)
--- NOTE | 2018-04-04 18:07 | Infectious Diseases Prog Note ---
Assessment/Plan Problems: (1) Angioedema Assessment & Plan: isolated, no evidence of infectious etiology, with negative blood culture and normal CRP/ESR , complements levels showed low CH50 , BUT C2 is pending . avoid causes such as YAYA INH (2) Acute respiratory failure Assessment & Plan: resolved, due to the above , intubated , S/P self extubation , monitor CXR , pulmonary is following (3) Longstanding persistent atrial fibrillation Assessment & Plan: continue rate controlling meds , cardiology is following Subjective Constitutional: Reports: no symptoms HEENT: Reports: no symptoms Respiratory: Reports: no symptoms Breasts: Reports: no symptoms Cardiovascular: Reports: no symptoms Gastrointestinal/Abdominal: Reports: no symptoms Genitourinary: Reports: no symptoms Neurologic: Reports: no symptoms Psychiatric: Reports: no symptoms Skin: Reports: no symptoms Endocrine: Reports: no symptoms Hematologic: Reports: no symptoms Musculoskeletal: Reports: no symptoms Allergies: Coded Allergies: SULFA (SULFONAMIDE ANTIBIOTICS) (Verified Allergy, Severe, Itching, ) Subjective she was agitated earlier and hyperactive, received haldol with ativan, now in deep sleep , not responsive Objective Vital Signs Last 24 Hour Vital Signs Date Time Temp Pulse Resp B/P (MAP) Pulse Ox O2 Delivery O2 Flow Rate FiO2 04/04/18 12:00 82 04/04/18 12:00 97.6 86 20 151/75 (100) 97 97.6 04/04/18 09:30 136/68 (90) 04/04/18 09:00 Room Air 04/04/18 08:50 92 174/84 04/04/18 08:00 98 04/04/18 08:00 97.4 98 19 174/84 (114) 99 97.4 04/04/18 04:00 98.1 80 20 152/88 (109) 95 98.1 04/04/18 04:00 66 04/04/18 00:00 98.1 69 22 156/64 (94) 99 98.1 04/04/18 00:00 47 04/03/18 21:00 Room Air 04/03/18 20:00 98.1 60 20 160/74 (102) 95 98.1 04/03/18 20:00 54 Height (Feet): 5 Height (Inches): 6.00 Weight (Pounds): 232 General Appearance: WD/WN, no acute distress HEENT: normocephalic, atraumatic, anicteric, mucous membranes moist Respiratory/Chest: chest wall non-tender, normal breath sounds, no respiratory distress, no accessory muscle use, decreased breath sounds, crackles/rales Cardiovascular: normal peripheral pulses, normal rate, regular rhythm, no gallop/murmur, no JVD Abdomen: normal bowel sounds, soft, non tender, no organomegaly, non distended , no scars Genitourinary: normal external genitalia Extremities: no cyanosis, no clubbing Skin: no rash, no lesions, no ulcers Neurologic/Psychiatric: alert, oriented x 3 Laboratory Tests Test 04/04/18 04:00 White Blood Count 13.1 K/UL (4.8-10.8) H Red Blood Count 4.08 M/UL (4.20-5.40) L Hemoglobin 12.0 G/DL (12.0-16.0) Hematocrit 36.8 % (37.0-47.0) L Mean Corpuscular Volume 90 FL (80-99) Mean Corpuscular Hemoglobin 29.4 PG (27.0-31.0) Mean Corpuscular Hemoglobin Concent 32.6 G/DL (32.0-36.0) Red Cell Distribution Width 12.3 % (11.6-14.8) Platelet Count 181 K/UL (150-450) Mean Platelet Volume 9.0 FL (6.5-10.1) Neutrophils (%) (Auto) % (45.0-75.0) Lymphocytes (%) (Auto) % (20.0-45.0) Monocytes (%) (Auto) % (1.0-10.0) Eosinophils (%) (Auto) % (0.0-3.0) Basophils (%) (Auto) % (0.0-2.0) Prothrombin Time 22.0 SEC (9.30-11.50) H Prothromb Time International Ratio 2.2 (0.9-1.1) H Activated Partial Thromboplast Time 28 SEC (23-33) Sodium Level 142 MMOL/L (136-145) Potassium Level 3.4 MMOL/L (3.5-5.1) L Chloride Level 104 MMOL/L (98-107) Carbon Dioxide Level 32 MMOL/L (21-32) Anion Gap 6 mmol/L (5-15) Blood Urea Nitrogen 21 mg/dL (7-18) H Creatinine 0.8 MG/DL (0.55-1.30) Estimat Glomerular Filtration Rate mL/min (>60) Glucose Level 145 MG/DL (74-106) H Calcium Level 8.7 MG/DL (8.5-10.1) Current Medications Medications (Trade) Dose Ordered Sig/Lashay Route PRN Reason Start Time Stop Time Status Last Admin Dose Admin Allopurinol (Zyloprim) 100 mg DAILY ORAL 04/04/18 09:00 04/30/18 08:59 04/04/18 08:49 Atenolol (Tenormin) 25 mg DAILY ORAL 04/04/18 09:00 04/30/18 08:59 04/04/18 08:50 Atorvastatin Calcium (Lipitor) 20 mg BEDTIME ORAL 04/03/18 21:00 04/29/18 20:59 Dextrose (Dextrose 50%) 25 ml STAT PRN IV Hypoglycemia 04/03/18 16:00 05/03/18 15:59 Dextrose (Dextrose 50%) 50 ml STAT PRN IV Hypoglycemia 04/03/18 16:00 05/03/18 15:59 Escitalopram Oxalate (Lexapro) 10 mg DAILY ORAL 04/04/18 09:00 05/02/18 10:59 04/04/18 08:49 Hydrochlorothiazide (Hydrodiuril) 25 mg DAILY ORAL 04/04/18 09:00 04/30/18 08:59 04/04/18 08:50 Insulin Aspart (NovoLOG) BEFORE MEALS AND HS SUBQ 04/03/18 16:30 05/01/18 11:29 04/04/18 16:45 Labetalol HCl (Normodyne) 10 mg Q4H PRN IV For High Blood Pressure 04/03/18 16:00 04/29/18 15:59 Lactulose (Cephulac) 30 gm THREE TIMES A DAY ORAL 04/04/18 13:00 05/04/18 12:59 04/04/18 17:22 Lorazepam (Ativan 2mg/ml 1ml) 2 mg Q4H PRN IV For Anxiety 04/03/18 16:00 04/06/18 15:59 Ondansetron HCl (Zofran) 4 mg Q6H PRN IVP Nausea & Vomiting 04/03/18 16:00 04/29/18 15:59 Prednisone (predniSONE) 40 mg DAILY ORAL 04/04/18 09:00 05/04/18 08:59 04/04/18 08:49 Quetiapine Fumarate (SEROquel) 12.5 mg Q4H PRN ORAL agitation 04/03/18 16:00 05/03/18 15:59 Warfarin Sodium (Coumadin per pharmacy) 1 ea DAILY PRN MISC Per rx protocol 04/04/18 09:00 04/30/18 07:59 Alexia Herron M.D. Apr 04, 2018 18:07
--- NOTE | 2018-04-04 19:55 | Pulmonology Progress Note ---
Assessment/Plan Problems: (1) Angioedema (2) Acute respiratory failure (3) Longstanding persistent atrial fibrillation (4) Bronchitis (5) Pulmonary hypertension (6) Obesity (7) NSTEMI (non-ST elevated myocardial infarction) (8) Disoriented Assessment/Plan -Optimize pulmonary hygiene/mobilize as tolerated -PRN O2 -Decrease Prednisone to 20 and taper -No ACEi -Aspiration precautions -Monitor MS -DVT Px: A/C -F/U cards and renal recs Subjective Allergies: Coded Allergies: SULFA (SULFONAMIDE ANTIBIOTICS) (Verified Allergy, Severe, Itching, ) Subjective AFVSS, on RA, transferred to [facility], less agitated, awake and alert No F/C/CP/SOB/N/V/D/C, koki PO, had BM Objective Last 24 Hour Vital Signs Date Time Temp Pulse Resp B/P (MAP) Pulse Ox O2 Delivery O2 Flow Rate FiO2 04/04/18 16:00 63 04/04/18 16:00 98.1 63 20 138/74 (95) 97 98.1 04/04/18 12:00 82 04/04/18 12:00 97.6 86 20 151/75 (100) 97 97.6 04/04/18 09:30 136/68 (90) 04/04/18 09:00 Room Air 04/04/18 08:50 92 174/84 04/04/18 08:00 98 04/04/18 08:00 97.4 98 19 174/84 (114) 99 97.4 04/04/18 04:00 98.1 80 20 152/88 (109) 95 98.1 04/04/18 04:00 66 04/04/18 00:00 98.1 69 22 156/64 (94) 99 98.1 04/04/18 00:00 47 04/03/18 21:00 Room Air 04/03/18 20:00 98.1 60 20 160/74 (102) 95 98.1 04/03/18 20:00 54 Intake and Output 04/03/18 04/04/18 19:00 07:00 Intake Total 200 ml Output Total 600 ml 4 ml Balance -400 ml -4 ml IV Total 200 ml Output Urine Total 600 ml 4 ml General Appearance: WD/WN, no acute distress, other - obese HEENT: normocephalic, atraumatic, anicteric, mucous membranes moist Respiratory/Chest: chest wall non-tender, lungs clear, normal breath sounds, no respiratory distress, no accessory muscle use Cardiovascular: irregularly irregular Abdomen: normal bowel sounds, soft, non tender, no organomegaly, non distended , no mass Extremities: no cyanosis, no clubbing, no edema Laboratory Tests 04/04/18 04:00: White Blood Count 13.1H, Red Blood Count 4.08L, Hemoglobin 12.0, Hematocrit 36.8L, Mean Corpuscular Volume 90, Mean Corpuscular Hemoglobin 29.4, Mean Corpuscular Hemoglobin Concent 32.6, Red Cell Distribution Width 12.3, Platelet Count 181, Mean Platelet Volume 9.0, Neutrophils (%) (Auto) , Lymphocytes (%) ( Auto) , Monocytes (%) (Auto) , Eosinophils (%) (Auto) , Basophils (%) (Auto) , Prothrombin Time 22.0H, Prothromb Time International Ratio 2.2H, Activated Partial Thromboplast Time 28, Sodium Level 142, Potassium Level 3.4L, Chloride Level 104, Carbon Dioxide Level 32, Anion Gap 6, Blood Urea Nitrogen 21H, Creatinine 0.8, Estimat Glomerular Filtration Rate , Glucose Level 145H, Calcium Level 8.7 Current Medications Medications (Trade) Dose Ordered Sig/Lashay Route PRN Reason Start Time Stop Time Status Last Admin Dose Admin Allopurinol (Zyloprim) 100 mg DAILY ORAL 04/04/18 09:00 04/30/18 08:59 04/04/18 08:49 Atenolol (Tenormin) 25 mg DAILY ORAL 04/04/18 09:00 04/30/18 08:59 04/04/18 08:50 Atorvastatin Calcium (Lipitor) 20 mg BEDTIME ORAL 04/03/18 21:00 04/29/18 20:59 Dextrose (Dextrose 50%) 25 ml STAT PRN IV Hypoglycemia 04/03/18 16:00 05/03/18 15:59 Dextrose (Dextrose 50%) 50 ml STAT PRN IV Hypoglycemia 04/03/18 16:00 05/03/18 15:59 Escitalopram Oxalate (Lexapro) 10 mg DAILY ORAL 04/04/18 09:00 05/02/18 10:59 04/04/18 08:49 Hydrochlorothiazide (Hydrodiuril) 25 mg DAILY ORAL 04/04/18 09:00 04/30/18 08:59 04/04/18 08:50 Insulin Aspart (NovoLOG) BEFORE MEALS AND HS SUBQ 04/03/18 16:30 05/01/18 11:29 04/04/18 16:45 Labetalol HCl (Normodyne) 10 mg Q4H PRN IV For High Blood Pressure 04/03/18 16:00 04/29/18 15:59 Lactulose (Cephulac) 30 gm THREE TIMES A DAY ORAL 04/04/18 13:00 05/04/18 12:59 04/04/18 17:22 Lorazepam (Ativan 2mg/ml 1ml) 2 mg Q4H PRN IV For Anxiety 04/03/18 16:00 04/06/18 15:59 Ondansetron HCl (Zofran) 4 mg Q6H PRN IVP Nausea & Vomiting 04/03/18 16:00 04/29/18 15:59 Prednisone (predniSONE) 40 mg DAILY ORAL 04/04/18 09:00 05/04/18 08:59 04/04/18 08:49 Quetiapine Fumarate (SEROquel) 12.5 mg Q4H PRN ORAL agitation 04/03/18 16:00 05/03/18 15:59 Warfarin Sodium (Coumadin per pharmacy) 1 ea DAILY PRN MISC Per rx protocol 04/04/18 09:00 04/30/18 07:59 Alfonso Huff MD Apr 04, 2018 19:55
[2018-04-04] MEDS: Atorvastatin 20mg tab ORAL SCH (22:14)
[2018-04-05] VITALS: BP 150/68
[2018-04-05 04:00] VITALS: BP 145/77
[2018-04-05] MEDS: NovoLOG Insulin Flexpen SUBQ SCH ×4 (06:22→20:50)
[2018-04-05 08:00] VITALS: BP 147/88
--- NOTE | 2018-04-05 08:14 | Nephrology Progress Note ---
Assessment/Plan Assessment/Plan 1. Resp Failure- resolved - angioedema from YAYA-I, weaning steroids to continue 2. Chronic AFib with RVR- Coumadin. 3. HTN- stable 4. DVT Prophylaxsis- on anticoagulation 5. ACS/Elevated Trop I- stable per Cardiology 6. Hypokalemia- being replaced prn Tx to MedSurg and plan for DC Subjective Date patient seen: Apr 05, 2018 Time patient seen: 08:12 ROS Limited/Unobtainable: No Allergies: Coded Allergies: SULFA (SULFONAMIDE ANTIBIOTICS) (Verified Allergy, Severe, Itching, ) Subjective Patient much improved. Plan for DC shellie Objective Last 24 Hour Vital Signs Date Time Temp Pulse Resp B/P (MAP) Pulse Ox O2 Delivery O2 Flow Rate FiO2 04/05/18 04:00 66 04/05/18 04:00 98.0 71 21 145/77 (99) 96 98.0 04/05/18 00:00 98.2 63 20 150/68 (95) 96 98.2 04/05/18 00:00 80 04/05/18 00:00 Room Air 04/04/18 21:00 Room Air 04/04/18 20:00 98.4 64 20 150/62 (91) 93 98.4 04/04/18 20:00 57 04/04/18 16:00 63 04/04/18 16:00 98.1 63 20 138/74 (95) 97 98.1 04/04/18 12:00 82 04/04/18 12:00 97.6 86 20 151/75 (100) 97 97.6 04/04/18 09:30 136/68 (90) 04/04/18 09:00 Room Air 04/04/18 08:50 92 174/84 Intake and Output 04/04/18 04/05/18 19:00 07:00 Intake Total 300 ml Balance 300 ml Intake Oral 300 ml # Voids 2 2 # Bowel Movements 2 4 Height (Feet): 5 Height (Inches): 6.00 Weight (Pounds): 232 General Appearance: no apparent distress, alert EENT: normal ENT inspection Neck: normal alignment, supple Cardiovascular: normal rate, regular rhythm Respiratory/Chest: lungs clear, normal breath sounds Abdomen: normal bowel sounds, non tender, soft Edema: no edema noted Arm (L), no edema noted Arm (R), no edema noted Leg (L), no edema noted Leg (R), no edema noted Pedal (L), no edema noted Pedal (R), no edema noted Generalized Vladimir Biswas M.D. Apr 05, 2018 08:14
[2018-04-05 08:23] LABS: HEMATOCRIT 33.2 % (37.0-47.0); HEMOGLOBIN 11.1 G/DL (12.0-16.0); MEAN CORPUSCULAR VOLUME 91 FL (80-99); PLATELET COUNT 176 K/UL (150-450); RED BLOOD COUNT 3.66 M/UL (4.20-5.40); RED CELL DISTRIBUTION WIDTH 12.2 % (11.6-14.8); WHITE BLOOD COUNT 20.6 K/UL (4.8-10.8)
[2018-04-05 08:40] LABS: INR 2.2 (0.9-1.1)
[2018-04-05 08:47] LABS: ANION GAP 5 mmol/L (5-15); BLOOD UREA NITROGEN 17 mg/dL (7-18); CALCIUM 8.7 MG/DL (8.5-10.1); CARBON DIOXIDE 34 MMOL/L (21-32); CHLORIDE 104 MMOL/L (98-107); CREATININE 0.7 MG/DL (0.55-1.30); POTASSIUM 3.1 MMOL/L (3.5-5.1); SODIUM 143 MMOL/L (136-145)
[2018-04-05] MEDS: Allopurinol 100mg Tab ORAL SCH (08:58)
[2018-04-05] MEDS: Lactulose 20gm/30ml UDC ORAL SCH (08:59)
[2018-04-05] MEDS: Atenolol 25mg tab ORAL SCH (08:59)
[2018-04-05] MEDS ORDERED: LORazepam Inj 2mg/ml 1ml IV PRN (12:00)
[2018-04-05] MEDS ORDERED: Labetalol 5mg/ml 20ml vial IV PRN (12:00)
[2018-04-05 12:20] VITALS: BP 148/70
[2018-04-05] MEDS ORDERED: Lactulose 20gm/30ml UDC ORAL SCH (13:00)
[2018-04-05 16:00] VITALS: BP 149/85
--- NOTE | 2018-04-05 16:10 | Infectious Diseases Prog Note ---
Assessment/Plan Problems: (1) Angioedema Assessment & Plan: isolated, no evidence of infectious etiology, with negative blood culture and normal CRP/ESR , complements levels showed low CH50 , BUT C2 is pending . avoid causes such as YAYA INH (2) Acute respiratory failure Assessment & Plan: resolved, due to the above , intubated , S/P self extubation , monitor CXR , pulmonary is following (3) Longstanding persistent atrial fibrillation Assessment & Plan: continue rate controlling meds , cardiology is following (4) Leukocytosis Assessment & Plan: with no evidence of bacteremia and negative blood culture , suspect due to steroids , monitor WBC Subjective Constitutional: Reports: no symptoms HEENT: Reports: no symptoms Respiratory: Reports: no symptoms Breasts: Reports: no symptoms Cardiovascular: Reports: no symptoms Gastrointestinal/Abdominal: Reports: no symptoms Genitourinary: Reports: no symptoms Neurologic: Reports: no symptoms Psychiatric: Reports: no symptoms Skin: Reports: no symptoms Endocrine: Reports: no symptoms Hematologic: Reports: no symptoms Musculoskeletal: Reports: no symptoms Allergies: Coded Allergies: SULFA (SULFONAMIDE ANTIBIOTICS) (Verified Allergy, Severe, Itching, ) Subjective she was agitated earlier and hyperactive, received haldol with ativan, now in deep sleep , not responsive Objective Vital Signs Last 24 Hour Vital Signs Date Time Temp Pulse Resp B/P (MAP) Pulse Ox O2 Delivery O2 Flow Rate FiO2 04/05/18 12:20 98.1 62 20 148/70 (96) 94 98.1 94 04/05/18 09:00 Room Air 04/05/18 08:59 75 147/88 04/05/18 08:00 99.0 75 18 147/88 (107) 96 99.0 04/05/18 08:00 81 04/05/18 04:00 66 04/05/18 04:00 98.0 71 21 145/77 (99) 96 98.0 04/05/18 00:00 98.2 63 20 150/68 (95) 96 98.2 04/05/18 00:00 80 04/05/18 00:00 Room Air 04/04/18 21:00 Room Air 04/04/18 20:00 98.4 64 20 150/62 (91) 93 98.4 04/04/18 20:00 57 Height (Feet): 5 Height (Inches): 6.00 Weight (Pounds): 232 General Appearance: WD/WN, no acute distress HEENT: normocephalic, atraumatic, anicteric, mucous membranes moist, supple, no JVD Respiratory/Chest: chest wall non-tender, lungs clear, normal breath sounds, no respiratory distress, no accessory muscle use Cardiovascular: normal peripheral pulses, normal rate, regular rhythm, no gallop/murmur, no JVD Abdomen: normal bowel sounds, soft, non tender, no organomegaly, non distended , no mass, no scars Extremities: no cyanosis, no clubbing Skin: no rash, no lesions Neurologic/Psychiatric: alert, oriented x 3 Laboratory Tests Test 04/05/18 07:15 04/05/18 07:45 White Blood Count 20.6 K/UL (4.8-10.8) #H Red Blood Count 3.66 M/UL (4.20-5.40) L Hemoglobin 11.1 G/DL (12.0-16.0) L Hematocrit 33.2 % (37.0-47.0) L Mean Corpuscular Volume 91 FL (80-99) Mean Corpuscular Hemoglobin 30.2 PG (27.0-31.0) Mean Corpuscular Hemoglobin Concent 33.3 G/DL (32.0-36.0) Red Cell Distribution Width 12.2 % (11.6-14.8) Platelet Count 176 K/UL (150-450) Mean Platelet Volume 9.5 FL (6.5-10.1) Neutrophils (%) (Auto) % (45.0-75.0) Lymphocytes (%) (Auto) % (20.0-45.0) Monocytes (%) (Auto) % (1.0-10.0) Eosinophils (%) (Auto) % (0.0-3.0) Basophils (%) (Auto) % (0.0-2.0) Differential Total Cells Counted 100 Neutrophils % (Manual) 82 % (45-75) H Lymphocytes % (Manual) 13 % (20-45) L Monocytes % (Manual) 5 % (1-10) Eosinophils % (Manual) 0 % (0-3) Basophils % (Manual) 0 % (0-2) Band Neutrophils 0 % (0-8) Platelet Estimate Adequate Platelet Morphology Normal Hypochromasia 1+ Sodium Level 143 MMOL/L (136-145) Potassium Level 3.1 MMOL/L (3.5-5.1) L Chloride Level 104 MMOL/L (98-107) Carbon Dioxide Level 34 MMOL/L (21-32) H Anion Gap 5 mmol/L (5-15) Blood Urea Nitrogen 17 mg/dL (7-18) Creatinine 0.7 MG/DL (0.55-1.30) Estimat Glomerular Filtration Rate mL/min (>60) Glucose Level 97 MG/DL (74-106) Calcium Level 8.7 MG/DL (8.5-10.1) Prothrombin Time 22.1 SEC (9.30-11.50) H Prothromb Time International Ratio 2.2 (0.9-1.1) H Current Medications Medications (Trade) Dose Ordered Sig/Lashay Route PRN Reason Start Time Stop Time Status Last Admin Dose Admin Allopurinol (Zyloprim) 100 mg DAILY ORAL 04/06/18 09:00 04/30/18 08:59 Atenolol (Tenormin) 25 mg DAILY ORAL 04/06/18 09:00 04/30/18 08:59 Atorvastatin Calcium (Lipitor) 20 mg BEDTIME ORAL 04/05/18 21:00 04/29/18 20:59 Dextrose (Dextrose 50%) 25 ml STAT PRN IV Hypoglycemia 04/05/18 12:00 05/03/18 11:59 Dextrose (Dextrose 50%) 50 ml STAT PRN IV Hypoglycemia 04/05/18 12:00 05/05/18 11:59 Escitalopram Oxalate (Lexapro) 10 mg DAILY ORAL 04/06/18 09:00 05/02/18 10:59 Hydrochlorothiazide (Hydrodiuril) 25 mg DAILY ORAL 04/06/18 09:00 04/30/18 08:59 Insulin Aspart (NovoLOG) BEFORE MEALS AND HS SUBQ 04/05/18 12:30 05/01/18 12:29 04/05/18 12:42 Lactulose (Cephulac) 30 gm THREE TIMES A DAY ORAL 04/05/18 13:00 05/04/18 12:59 04/05/18 12:44 Lorazepam (Ativan 2mg/ml 1ml) 2 mg Q4H PRN IV For Anxiety 04/05/18 12:00 04/06/18 15:59 Ondansetron HCl (Zofran) 4 mg Q6H PRN IVP Nausea & Vomiting 04/05/18 12:00 04/29/18 11:59 Prednisone (predniSONE) 20 mg DAILY ORAL 04/06/18 09:00 05/04/18 08:59 Quetiapine Fumarate (SEROquel) 12.5 mg Q4H PRN ORAL agitation 04/05/18 12:00 05/03/18 15:59 Warfarin Sodium (Coumadin per pharmacy) 1 ea DAILY PRN MISC Per rx protocol 04/05/18 12:00 05/05/18 11:59 Warfarin Sodium (Coumadin) 2.5 mg COUMADIN ORAL 04/05/18 17:00 04/10/18 16:59 Alexia Herron M.D. Apr 05, 2018 16:10
--- NOTE | 2018-04-05 16:53 | Pulmonology Progress Note ---
Assessment/Plan Problems: (1) Angioedema (2) Acute respiratory failure (3) Longstanding persistent atrial fibrillation (4) Bronchitis (5) Pulmonary hypertension (6) Obesity (7) NSTEMI (non-ST elevated myocardial infarction) (8) Disoriented (9) Leukocytosis (10) Diarrhea Assessment/Plan -Optimize pulmonary hygiene/mobilize as tolerated -PRN O2 -D/C PREDNISONE -No ACEi -Aspiration precautions -Monitor MS -F/U C diff, monitor WCt -DVT Px: A/C -F/U cards and renal recs Subjective Allergies: Coded Allergies: SULFA (SULFONAMIDE ANTIBIOTICS) (Verified Allergy, Severe, Itching, ) Subjective AFVSS, on RA, transferred to 4W, less agitated, awake and alert No F/C/CP/SOB/N/V/D/C, kkoi PO, + diarrhea, WCt 20 Objective Last 24 Hour Vital Signs Date Time Temp Pulse Resp B/P (MAP) Pulse Ox O2 Delivery O2 Flow Rate FiO2 04/05/18 16:00 98.4 66 20 149/85 (106) 94 98.4 66 04/05/18 12:20 98.1 62 20 148/70 (96) 94 98.1 94 04/05/18 09:00 Room Air 04/05/18 08:59 75 147/88 04/05/18 08:00 99.0 75 18 147/88 (107) 96 99.0 04/05/18 08:00 81 04/05/18 04:00 66 04/05/18 04:00 98.0 71 21 145/77 (99) 96 98.0 04/05/18 00:00 98.2 63 20 150/68 (95) 96 98.2 04/05/18 00:00 80 04/05/18 00:00 Room Air 04/04/18 21:00 Room Air 04/04/18 20:00 98.4 64 20 150/62 (91) 93 98.4 04/04/18 20:00 57 Intake and Output 04/04/18 04/05/18 19:00 07:00 Intake Total 300 ml Balance 300 ml Intake Oral 300 ml # Voids 2 2 # Bowel Movements 2 4 General Appearance: no acute distress, other - obese female HEENT: normocephalic, atraumatic, anicteric, mucous membranes moist Respiratory/Chest: chest wall non-tender, lungs clear, normal breath sounds, no respiratory distress Cardiovascular: normal peripheral pulses, normal rate, regular rhythm Abdomen: normal bowel sounds, soft, non tender, no organomegaly, non distended Extremities: no cyanosis, no clubbing, no edema Laboratory Tests 04/05/18 07:15: White Blood Count 20.6#H, Red Blood Count 3.66L, Hemoglobin 11.1L, Hematocrit 33.2L, Mean Corpuscular Volume 91, Mean Corpuscular Hemoglobin 30.2, Mean Corpuscular Hemoglobin Concent 33.3, Red Cell Distribution Width 12.2, Platelet Count 176, Mean Platelet Volume 9.5, Neutrophils (%) (Auto) , Lymphocytes (%) ( Auto) , Monocytes (%) (Auto) , Eosinophils (%) (Auto) , Basophils (%) (Auto) , Differential Total Cells Counted 100, Neutrophils % (Manual) 82H, Lymphocytes % (Manual) 13L, Monocytes % (Manual) 5, Eosinophils % (Manual) 0, Basophils % ( Manual) 0, Band Neutrophils 0, Platelet Estimate Adequate, Platelet Morphology Normal, Hypochromasia 1+, Sodium Level 143, Potassium Level 3.1L, Chloride Level 104, Carbon Dioxide Level 34H, Anion Gap 5, Blood Urea Nitrogen 17, Creatinine 0.7, Estimat Glomerular Filtration Rate , Glucose Level 97, Calcium Level 8.7 04/05/18 07:45: Prothrombin Time 22.1H, Prothromb Time International Ratio 2.2H Current Medications Medications (Trade) Dose Ordered Sig/Lashay Route PRN Reason Start Time Stop Time Status Last Admin Dose Admin Allopurinol (Zyloprim) 100 mg DAILY ORAL 04/06/18 09:00 04/30/18 08:59 Atenolol (Tenormin) 25 mg DAILY ORAL 04/06/18 09:00 04/30/18 08:59 Atorvastatin Calcium (Lipitor) 20 mg BEDTIME ORAL 04/05/18 21:00 04/29/18 20:59 Dextrose (Dextrose 50%) 25 ml STAT PRN IV Hypoglycemia 04/05/18 12:00 05/03/18 11:59 Dextrose (Dextrose 50%) 50 ml STAT PRN IV Hypoglycemia 04/05/18 12:00 05/05/18 11:59 Escitalopram Oxalate (Lexapro) 10 mg DAILY ORAL 04/06/18 09:00 05/02/18 10:59 Hydrochlorothiazide (Hydrodiuril) 25 mg DAILY ORAL 04/06/18 09:00 04/30/18 08:59 Insulin Aspart (NovoLOG) BEFORE MEALS AND HS SUBQ 04/05/18 12:30 05/01/18 12:29 04/05/18 12:42 Lactulose (Cephulac) 30 gm THREE TIMES A DAY ORAL 04/05/18 13:00 05/04/18 12:59 04/05/18 12:44 Lorazepam (Ativan 2mg/ml 1ml) 2 mg Q4H PRN IV For Anxiety 04/05/18 12:00 04/06/18 15:59 Ondansetron HCl (Zofran) 4 mg Q6H PRN IVP Nausea & Vomiting 04/05/18 12:00 04/29/18 11:59 Prednisone (predniSONE) 20 mg DAILY ORAL 04/06/18 09:00 05/04/18 08:59 Quetiapine Fumarate (SEROquel) 12.5 mg Q4H PRN ORAL agitation 04/05/18 12:00 05/03/18 15:59 Warfarin Sodium (Coumadin per pharmacy) 1 ea DAILY PRN MISC Per rx protocol 04/05/18 12:00 05/05/18 11:59 Warfarin Sodium (Coumadin) 2.5 mg COUMADIN ORAL 04/05/18 17:00 04/10/18 16:59 Alfonso Huff MD Apr 05, 2018 16:53
[2018-04-05] MEDS ORDERED: Warfarin Sodium 2.5mg ORAL SCH ×2 (17:00)
--- NOTE | 2018-04-05 17:31 | Cardiology Progress Note ---
Assessment/Plan Status: stable Assessment/Plan Assessment/Plan 1. Shortness of breath with angioedema due to lisinopril. Extubated, now on floor 2. Paroxysmal atrial fibrillation. On Coumadin per Rx 3. Hypertension, on atenolol 25 mg daily and hydrochlorothiazide 25 mg daily. 4. Troponin elevation, 2.9, 2.6, 0.8. No chest pain on heparin and atenolol. Echo EF 60% , no indication for cardiac cath 5. Status post angioedema secondary to lisinopril, currently on Solu-Medrol. 6. Hyperlipidemia, on Lipitor. 7. Dispo planning Subjective Cardiovascular: Reports: no symptoms Respiratory: Reports: no symptoms Gastrointestinal/Abdominal: Reports: no symptoms Genitourinary: Reports: no symptoms Subjective No acute events. Patient awake in bed, alert and verbally responsive. Able to follow directions. Denies pain at this time. No signs of acute distress WBC elevated. Pt was transfered from [facility], pt Ox3, calm and cooperative Objective Last 24 Hour Vital Signs Date Time Temp Pulse Resp B/P (MAP) Pulse Ox O2 Delivery O2 Flow Rate FiO2 04/05/18 16:00 98.4 66 20 149/85 (106) 94 98.4 66 04/05/18 12:20 98.1 62 20 148/70 (96) 94 98.1 94 04/05/18 09:00 Room Air 04/05/18 08:59 75 147/88 04/05/18 08:00 99.0 75 18 147/88 (107) 96 99.0 04/05/18 08:00 81 04/05/18 04:00 66 04/05/18 04:00 98.0 71 21 145/77 (99) 96 98.0 04/05/18 00:00 98.2 63 20 150/68 (95) 96 98.2 04/05/18 00:00 80 04/05/18 00:00 Room Air 04/04/18 21:00 Room Air 04/04/18 20:00 98.4 64 20 150/62 (91) 93 98.4 04/04/18 20:00 57 General Appearance: no apparent distress EENT: PERRL/EOMI Neck: non-tender Rhythm: NSR Cardiovascular: normal peripheral pulses Respiratory/Chest: lungs clear Abdomen: normal bowel sounds Extremities: normal range of motion 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 Intake and Output 04/04/18 04/05/18 19:00 07:00 Intake Total 300 ml Balance 300 ml Intake Oral 300 ml # Voids 2 2 # Bowel Movements 2 4 Laboratory Tests Test 04/05/18 07:15 04/05/18 07:45 White Blood Count 20.6 K/UL (4.8-10.8) #H Red Blood Count 3.66 M/UL (4.20-5.40) L Hemoglobin 11.1 G/DL (12.0-16.0) L Hematocrit 33.2 % (37.0-47.0) L Mean Corpuscular Volume 91 FL (80-99) Mean Corpuscular Hemoglobin 30.2 PG (27.0-31.0) Mean Corpuscular Hemoglobin Concent 33.3 G/DL (32.0-36.0) Red Cell Distribution Width 12.2 % (11.6-14.8) Platelet Count 176 K/UL (150-450) Mean Platelet Volume 9.5 FL (6.5-10.1) Neutrophils (%) (Auto) % (45.0-75.0) Lymphocytes (%) (Auto) % (20.0-45.0) Monocytes (%) (Auto) % (1.0-10.0) Eosinophils (%) (Auto) % (0.0-3.0) Basophils (%) (Auto) % (0.0-2.0) Differential Total Cells Counted 100 Neutrophils % (Manual) 82 % (45-75) H Lymphocytes % (Manual) 13 % (20-45) L Monocytes % (Manual) 5 % (1-10) Eosinophils % (Manual) 0 % (0-3) Basophils % (Manual) 0 % (0-2) Band Neutrophils 0 % (0-8) Platelet Estimate Adequate Platelet Morphology Normal Hypochromasia 1+ Sodium Level 143 MMOL/L (136-145) Potassium Level 3.1 MMOL/L (3.5-5.1) L Chloride Level 104 MMOL/L (98-107) Carbon Dioxide Level 34 MMOL/L (21-32) H Anion Gap 5 mmol/L (5-15) Blood Urea Nitrogen 17 mg/dL (7-18) Creatinine 0.7 MG/DL (0.55-1.30) Estimat Glomerular Filtration Rate mL/min (>60) Glucose Level 97 MG/DL (74-106) Calcium Level 8.7 MG/DL (8.5-10.1) Prothrombin Time 22.1 SEC (9.30-11.50) H Prothromb Time International Ratio 2.2 (0.9-1.1) H Dimitris Posey M.D. Apr 05, 2018 17:31
[2018-04-05 19:45] VITALS: BP 154/96
[2018-04-05] MEDS: Atorvastatin 20mg tab ORAL SCH (20:49)
[2018-04-06 00:36] VITALS: BP 171/83
[2018-04-06 04:03] VITALS: BP 159/83
[2018-04-06] MEDS: NovoLOG Insulin Flexpen SUBQ SCH ×4 (06:27→21:00)
[2018-04-06 07:12] LABS: HEMATOCRIT 34.5 % (37.0-47.0); HEMOGLOBIN 11.2 G/DL (12.0-16.0); MEAN CORPUSCULAR VOLUME 90 FL (80-99); PLATELET COUNT 186 K/UL (150-450); RED BLOOD COUNT 3.82 M/UL (4.20-5.40); RED CELL DISTRIBUTION WIDTH 12.3 % (11.6-14.8); WHITE BLOOD COUNT 15.4 K/UL (4.8-10.8)
[2018-04-06 07:25] LABS: ANION GAP 3 mmol/L (5-15); BLOOD UREA NITROGEN 15 mg/dL (7-18); CALCIUM 8.4 MG/DL (8.5-10.1); CARBON DIOXIDE 35 MMOL/L (21-32); CHLORIDE 102 MMOL/L (98-107); CREATININE 0.7 MG/DL (0.55-1.30); POTASSIUM 3.5 MMOL/L (3.5-5.1); SODIUM 140 MMOL/L (136-145)
[2018-04-06 08:00] VITALS: BP 127/61
[2018-04-06] MEDS ORDERED: Allopurinol 100mg Tab ORAL SCH (09:00)
[2018-04-06] MEDS ORDERED: Atenolol 25mg tab ORAL SCH (09:00)
--- NOTE | 2018-04-06 10:51 | General Progress Note ---
Assessment/Plan Status: stable Assessment/Plan Encephalopathy Seroquel 12.5 mg q 4hr/prn Lexapro 10mg qaam Subjective Date patient seen: Apr 06, 2018 Neurologic/Psychiatric: Reports: anxiety, depressed, emotional problems Allergies: Coded Allergies: SULFA (SULFONAMIDE ANTIBIOTICS) (Verified Allergy, Severe, Itching, ) Subjective the pt is more engaged and was more appropriate Objective Last 24 Hour Vital Signs Date Time Temp Pulse Resp B/P (MAP) Pulse Ox O2 Delivery O2 Flow Rate FiO2 04/06/18 08:41 76 127/61 04/06/18 08:00 Room Air 04/06/18 08:00 98.4 76 20 127/61 (83) 94 98.4 04/06/18 04:03 96.8 70 20 159/83 (108) 95 96.8 70 70 04/06/18 00:36 98.8 65 20 171/83 (112) 95 98.8 65 65 04/05/18 21:00 Room Air 04/05/18 19:45 97.9 66 20 154/96 (115) 97 97.9 66 66 04/05/18 16:00 98.4 66 20 149/85 (106) 94 98.4 66 04/05/18 12:20 98.1 62 20 148/70 (96) 94 98.1 94 Intake and Output 04/05/18 04/06/18 19:00 07:00 Intake Total 620 ml 300 ml Balance 620 ml 300 ml Intake Oral 620 ml 300 ml # Voids 3 2 # Bowel Movements 4 Laboratory Tests 04/06/18 05:55: White Blood Count 15.4H, Red Blood Count 3.82L, Hemoglobin 11.2L, Hematocrit 34.5L, Mean Corpuscular Volume 90, Mean Corpuscular Hemoglobin 29.4, Mean Corpuscular Hemoglobin Concent 32.6, Red Cell Distribution Width 12.3, Platelet Count 186, Mean Platelet Volume 9.1, Neutrophils (%) (Auto) , Lymphocytes (%) ( Auto) , Monocytes (%) (Auto) , Eosinophils (%) (Auto) , Basophils (%) (Auto) , Differential Total Cells Counted 100, Neutrophils % (Manual) 67, Lymphocytes % ( Manual) 21, Monocytes % (Manual) 12H, Eosinophils % (Manual) 0, Basophils % ( Manual) 0, Band Neutrophils 0, Platelet Estimate Adequate, Platelet Morphology Normal, Prothrombin Time 20.5H, Prothromb Time International Ratio 2.0H, Sodium Level 140, Potassium Level 3.5, Chloride Level 102, Carbon Dioxide Level 35H, Anion Gap 3L, Blood Urea Nitrogen 15, Creatinine 0.7, Estimat Glomerular Filtration Rate , Glucose Level 99, Calcium Level 8.4L Height (Feet): 5 Height (Inches): 6.00 Weight (Pounds): 232 General Appearance: no apparent distress, alert Neurologic: oriented x 3 - oriented to person and place, responsive, depressed affect Dane Monterroso MD Apr 06, 2018 10:51
--- NOTE | 2018-04-06 10:54 | Geriatric Progress Note ---
Assessment/Plan Assessment/Plan Early dementia Encephalopathy Seroquel 12.5 mg q 4hr/prn Lexapro 10mg qaam Subjective Interval Events 04/04/18 the pt was agitated and confused she broke the monitor and her daughter called me I spoke to her and her cousin Mood/Memory: Reports: prior hx, anxiety, depressed feelings, emotional problems Geriatric Geriatric Last 24 Hour Vital Signs Date Time Temp Pulse Resp B/P (MAP) Pulse Ox O2 Delivery O2 Flow Rate FiO2 04/06/18 08:41 76 127/61 04/06/18 08:00 Room Air 04/06/18 08:00 98.4 76 20 127/61 (83) 94 98.4 04/06/18 04:03 96.8 70 20 159/83 (108) 95 96.8 70 70 04/06/18 00:36 98.8 65 20 171/83 (112) 95 98.8 65 65 04/05/18 21:00 Room Air 04/05/18 19:45 97.9 66 20 154/96 (115) 97 97.9 66 66 04/05/18 16:00 98.4 66 20 149/85 (106) 94 98.4 66 04/05/18 12:20 98.1 62 20 148/70 (96) 94 98.1 94 Intake and Output 04/05/18 04/06/18 19:00 07:00 Intake Total 620 ml 300 ml Balance 620 ml 300 ml Intake Oral 620 ml 300 ml # Voids 3 2 # Bowel Movements 4 Laboratory Tests Test 04/06/18 05:55 White Blood Count 15.4 K/UL (4.8-10.8) H Red Blood Count 3.82 M/UL (4.20-5.40) L Hemoglobin 11.2 G/DL (12.0-16.0) L Hematocrit 34.5 % (37.0-47.0) L Mean Corpuscular Volume 90 FL (80-99) Mean Corpuscular Hemoglobin 29.4 PG (27.0-31.0) Mean Corpuscular Hemoglobin Concent 32.6 G/DL (32.0-36.0) Red Cell Distribution Width 12.3 % (11.6-14.8) Platelet Count 186 K/UL (150-450) Mean Platelet Volume 9.1 FL (6.5-10.1) Neutrophils (%) (Auto) % (45.0-75.0) Lymphocytes (%) (Auto) % (20.0-45.0) Monocytes (%) (Auto) % (1.0-10.0) Eosinophils (%) (Auto) % (0.0-3.0) Basophils (%) (Auto) % (0.0-2.0) Differential Total Cells Counted 100 Neutrophils % (Manual) 67 % (45-75) Lymphocytes % (Manual) 21 % (20-45) Monocytes % (Manual) 12 % (1-10) H Eosinophils % (Manual) 0 % (0-3) Basophils % (Manual) 0 % (0-2) Band Neutrophils 0 % (0-8) Platelet Estimate Adequate Platelet Morphology Normal Prothrombin Time 20.5 SEC (9.30-11.50) H Prothromb Time International Ratio 2.0 (0.9-1.1) H Sodium Level 140 MMOL/L (136-145) Potassium Level 3.5 MMOL/L (3.5-5.1) Chloride Level 102 MMOL/L (98-107) Carbon Dioxide Level 35 MMOL/L (21-32) H Anion Gap 3 mmol/L (5-15) L Blood Urea Nitrogen 15 mg/dL (7-18) Creatinine 0.7 MG/DL (0.55-1.30) Estimat Glomerular Filtration Rate mL/min (>60) Glucose Level 99 MG/DL (74-106) Calcium Level 8.4 MG/DL (8.5-10.1) L Current Medications Medications (Trade) Dose Ordered Sig/Lashay Route PRN Reason Start Time Stop Time Status Last Admin Dose Admin Allopurinol (Zyloprim) 100 mg DAILY ORAL 04/06/18 09:00 04/30/18 08:59 04/06/18 08:41 Atenolol (Tenormin) 25 mg DAILY ORAL 04/06/18 09:00 04/30/18 08:59 04/06/18 08:41 Atorvastatin Calcium (Lipitor) 20 mg BEDTIME ORAL 04/05/18 21:00 04/29/18 20:59 04/05/18 20:49 Dextrose (Dextrose 50%) 25 ml STAT PRN IV Hypoglycemia 04/05/18 12:00 05/03/18 11:59 Dextrose (Dextrose 50%) 50 ml STAT PRN IV Hypoglycemia 04/05/18 12:00 05/05/18 11:59 Escitalopram Oxalate (Lexapro) 10 mg DAILY ORAL 04/06/18 09:00 05/02/18 10:59 04/06/18 08:41 Hydrochlorothiazide (Hydrodiuril) 25 mg DAILY ORAL 04/06/18 09:00 04/30/18 08:59 04/06/18 08:41 Insulin Aspart (NovoLOG) BEFORE MEALS AND HS SUBQ 04/05/18 12:30 05/01/18 12:29 04/05/18 20:50 Lorazepam (Ativan 2mg/ml 1ml) 2 mg Q4H PRN IV For Anxiety 04/05/18 12:00 04/06/18 15:59 Ondansetron HCl (Zofran) 4 mg Q6H PRN IVP Nausea & Vomiting 04/05/18 12:00 04/29/18 11:59 Quetiapine Fumarate (SEROquel) 12.5 mg Q4H PRN ORAL agitation 04/05/18 12:00 05/03/18 15:59 Warfarin Sodium (Coumadin per pharmacy) 1 ea DAILY PRN MISC Per rx protocol 04/05/18 12:00 05/05/18 11:59 Warfarin Sodium (Coumadin) 3 mg COUMADIN ONCE ORAL 04/06/18 17:00 04/06/18 17:01 Height (Feet): 5 Height (Inches): 6.00 Weight (Pounds): 232 General Appearance: well appearing, well dressed, well nourished, alert, moderate distress Neurologic: alert Psychiatric Orientation: disoriented Affect: flat Dane Monterroso MD Apr 06, 2018 10:54
--- NOTE | 2018-04-06 11:13 | Nephrology Progress Note ---
Assessment/Plan Assessment/Plan 1. Resp Failure- resolved - angioedema from YAYA-I - off steroids 2. Chronic AFib with RVR- Coumadin. INR 2 3. HTN- stable 4. DVT Prophylaxsis- on anticoagulation 5. Disposition- DC [facility] to SNF 6. Hypokalemia- being replaced prn Subjective Date patient seen: Apr 06, 2018 Time patient seen: 11:12 ROS Limited/Unobtainable: No Allergies: Coded Allergies: SULFA (SULFONAMIDE ANTIBIOTICS) (Verified Allergy, Severe, Itching, ) Subjective Patient much improved. Plan for Dc tomorrow Objective Last 24 Hour Vital Signs Date Time Temp Pulse Resp B/P (MAP) Pulse Ox O2 Delivery O2 Flow Rate FiO2 04/06/18 08:41 76 127/61 04/06/18 08:00 Room Air 04/06/18 08:00 98.4 76 20 127/61 (83) 94 98.4 04/06/18 04:03 96.8 70 20 159/83 (108) 95 96.8 70 70 04/06/18 00:36 98.8 65 20 171/83 (112) 95 98.8 65 65 04/05/18 21:00 Room Air 04/05/18 19:45 97.9 66 20 154/96 (115) 97 97.9 66 66 04/05/18 16:00 98.4 66 20 149/85 (106) 94 98.4 66 04/05/18 12:20 98.1 62 20 148/70 (96) 94 98.1 94 Intake and Output 04/05/18 04/06/18 19:00 07:00 Intake Total 620 ml 300 ml Balance 620 ml 300 ml Intake Oral 620 ml 300 ml # Voids 3 2 # Bowel Movements 4 Laboratory Tests 04/06/18 05:55: White Blood Count 15.4H, Red Blood Count 3.82L, Hemoglobin 11.2L, Hematocrit 34.5L, Mean Corpuscular Volume 90, Mean Corpuscular Hemoglobin 29.4, Mean Corpuscular Hemoglobin Concent 32.6, Red Cell Distribution Width 12.3, Platelet Count 186, Mean Platelet Volume 9.1, Neutrophils (%) (Auto) , Lymphocytes (%) ( Auto) , Monocytes (%) (Auto) , Eosinophils (%) (Auto) , Basophils (%) (Auto) , Differential Total Cells Counted 100, Neutrophils % (Manual) 67, Lymphocytes % ( Manual) 21, Monocytes % (Manual) 12H, Eosinophils % (Manual) 0, Basophils % ( Manual) 0, Band Neutrophils 0, Platelet Estimate Adequate, Platelet Morphology Normal, Prothrombin Time 20.5H, Prothromb Time International Ratio 2.0H, Sodium Level 140, Potassium Level 3.5, Chloride Level 102, Carbon Dioxide Level 35H, Anion Gap 3L, Blood Urea Nitrogen 15, Creatinine 0.7, Estimat Glomerular Filtration Rate , Glucose Level 99, Calcium Level 8.4L Height (Feet): 5 Height (Inches): 6.00 Weight (Pounds): 232 General Appearance: no apparent distress, alert EENT: normal ENT inspection Neck: normal alignment, supple Cardiovascular: normal rate, regular rhythm Respiratory/Chest: lungs clear, normal breath sounds Abdomen: non tender, soft Edema: no edema noted Arm (L), no edema noted Arm (R), no edema noted Leg (L), no edema noted Leg (R), no edema noted Pedal (L), no edema noted Pedal (R), no edema noted Generalized Vladimir Biswas M.D. Apr 06, 2018 11:13
[2018-04-06 12:00] VITALS: BP 130/60
--- NOTE | 2018-04-06 15:44 | Cardiology Progress Note ---
Assessment/Plan Status: progressing Assessment/Plan Assessment/Plan 1. Shortness of breath with angioedema due to lisinopril. Extubated, now on floor 2. Paroxysmal atrial fibrillation. On Coumadin per Rx 3. Hypertension, on atenolol 25 mg daily and hydrochlorothiazide 25 mg daily. 4. Troponin elevation, 2.9, 2.6, 0.8. No chest pain on heparin and atenolol. Echo EF 60% , no indication for cardiac cath 5. Status post angioedema secondary to lisinopril, currently on Solu-Medrol. 6. Hyperlipidemia, on Lipitor. 7. Dispo planning - discharge today Subjective Cardiovascular: Reports: no symptoms Respiratory: Reports: no symptoms Gastrointestinal/Abdominal: Reports: no symptoms Genitourinary: Reports: no symptoms Subjective No acute events. Patient awake in bed, alert and verbally responsive. Able to follow directions. Denies pain at this time. No signs of acute distress WBC elevated. Pt was transfered from [facility], pt Ox3, calm and cooperative Objective Last 24 Hour Vital Signs Date Time Temp Pulse Resp B/P (MAP) Pulse Ox O2 Delivery O2 Flow Rate FiO2 04/06/18 12:00 98.0 72 18 130/60 (83) 94 98.0 04/06/18 08:41 76 127/61 04/06/18 08:00 Room Air 04/06/18 08:00 98.4 76 20 127/61 (83) 94 98.4 04/06/18 04:03 96.8 70 20 159/83 (108) 95 96.8 70 70 04/06/18 00:36 98.8 65 20 171/83 (112) 95 98.8 65 65 04/05/18 21:00 Room Air 04/05/18 19:45 97.9 66 20 154/96 (115) 97 97.9 66 66 04/05/18 16:00 98.4 66 20 149/85 (106) 94 98.4 66 General Appearance: no apparent distress, severe distress Neck: non-tender Rhythm: NSR Cardiovascular: normal peripheral pulses Respiratory/Chest: chest wall non-tender Abdomen: normal bowel sounds Extremities: normal range of motion 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 Intake and Output 04/05/18 04/06/18 19:00 07:00 Intake Total 620 ml 300 ml Balance 620 ml 300 ml Intake Oral 620 ml 300 ml # Voids 3 2 # Bowel Movements 4 Laboratory Tests Test 04/06/18 05:55 White Blood Count 15.4 K/UL (4.8-10.8) H Red Blood Count 3.82 M/UL (4.20-5.40) L Hemoglobin 11.2 G/DL (12.0-16.0) L Hematocrit 34.5 % (37.0-47.0) L Mean Corpuscular Volume 90 FL (80-99) Mean Corpuscular Hemoglobin 29.4 PG (27.0-31.0) Mean Corpuscular Hemoglobin Concent 32.6 G/DL (32.0-36.0) Red Cell Distribution Width 12.3 % (11.6-14.8) Platelet Count 186 K/UL (150-450) Mean Platelet Volume 9.1 FL (6.5-10.1) Neutrophils (%) (Auto) % (45.0-75.0) Lymphocytes (%) (Auto) % (20.0-45.0) Monocytes (%) (Auto) % (1.0-10.0) Eosinophils (%) (Auto) % (0.0-3.0) Basophils (%) (Auto) % (0.0-2.0) Differential Total Cells Counted 100 Neutrophils % (Manual) 67 % (45-75) Lymphocytes % (Manual) 21 % (20-45) Monocytes % (Manual) 12 % (1-10) H Eosinophils % (Manual) 0 % (0-3) Basophils % (Manual) 0 % (0-2) Band Neutrophils 0 % (0-8) Platelet Estimate Adequate Platelet Morphology Normal Prothrombin Time 20.5 SEC (9.30-11.50) H Prothromb Time International Ratio 2.0 (0.9-1.1) H Sodium Level 140 MMOL/L (136-145) Potassium Level 3.5 MMOL/L (3.5-5.1) Chloride Level 102 MMOL/L (98-107) Carbon Dioxide Level 35 MMOL/L (21-32) H Anion Gap 3 mmol/L (5-15) L Blood Urea Nitrogen 15 mg/dL (7-18) Creatinine 0.7 MG/DL (0.55-1.30) Estimat Glomerular Filtration Rate mL/min (>60) Glucose Level 99 MG/DL (74-106) Calcium Level 8.4 MG/DL (8.5-10.1) L Microbiology Date/Time Source Procedure Growth Status 04/05/18 17:20 Stool Clostridium difficile Toxin Assay - Final Complete Dimitris Posey M.D. Apr 06, 2018 15:44
[2018-04-06 16:00] VITALS: BP 161/73
[2018-04-06] MEDS ORDERED: Pneumococcal Vaccine 25mcg/0.5ml IM ONE (16:00)
--- NOTE | 2018-04-06 16:11 | Infectious Diseases Prog Note ---
Assessment/Plan Problems: (1) Angioedema Assessment & Plan: isolated, no evidence of infectious etiology, with negative blood culture and normal CRP/ESR , complements levels showed low CH50 , BUT C2 is pending . avoid causes such as YAYA INH (2) Acute respiratory failure Assessment & Plan: resolved, due to the above , intubated , S/P self extubation , monitor CXR , pulmonary is following (3) Longstanding persistent atrial fibrillation Assessment & Plan: continue rate controlling meds , cardiology is following (4) Leukocytosis Assessment & Plan: trending down, with no evidence of bacteremia and negative blood culture , suspect due to steroids , monitor WBC Subjective Constitutional: Reports: no symptoms HEENT: Reports: no symptoms Respiratory: Reports: no symptoms Breasts: Reports: no symptoms Cardiovascular: Reports: no symptoms Gastrointestinal/Abdominal: Reports: no symptoms Genitourinary: Reports: no symptoms Neurologic: Reports: no symptoms Psychiatric: Reports: no symptoms Skin: Reports: no symptoms Endocrine: Reports: no symptoms Hematologic: Reports: no symptoms Musculoskeletal: Reports: no symptoms Allergies: Coded Allergies: SULFA (SULFONAMIDE ANTIBIOTICS) (Verified Allergy, Severe, Itching, ) Subjective she was agitated earlier and hyperactive, received haldol with ativan, now in deep sleep , not responsive Objective Vital Signs Last 24 Hour Vital Signs Date Time Temp Pulse Resp B/P (MAP) Pulse Ox O2 Delivery O2 Flow Rate FiO2 04/06/18 12:00 98.0 72 18 130/60 (83) 94 98.0 04/06/18 08:41 76 127/61 04/06/18 08:00 Room Air 04/06/18 08:00 98.4 76 20 127/61 (83) 94 98.4 04/06/18 04:03 96.8 70 20 159/83 (108) 95 96.8 70 70 04/06/18 00:36 98.8 65 20 171/83 (112) 95 98.8 65 65 04/05/18 21:00 Room Air 04/05/18 19:45 97.9 66 20 154/96 (115) 97 97.9 66 66 Height (Feet): 5 Height (Inches): 6.00 Weight (Pounds): 232 General Appearance: WD/WN, no acute distress HEENT: normocephalic, atraumatic, anicteric, mucous membranes moist Respiratory/Chest: chest wall non-tender, lungs clear, no respiratory distress , no accessory muscle use, decreased breath sounds, crackles/rales Cardiovascular: normal peripheral pulses, normal rate, regular rhythm, no gallop/murmur, no JVD Abdomen: normal bowel sounds, soft, non tender, no organomegaly, non distended , no mass, no scars Genitourinary: normal external genitalia Extremities: no cyanosis, no clubbing Skin: no rash, no lesions Neurologic/Psychiatric: alert, oriented x 3, responsive Lymphatic: no neck adenopathy, no groin adenopathy Musculoskeletal: normal muscle bulk Microbiology Date/Time Source Procedure Growth Status 04/05/18 17:20 Stool Clostridium difficile Toxin Assay - Final Complete Laboratory Tests Test 04/06/18 05:55 White Blood Count 15.4 K/UL (4.8-10.8) H Red Blood Count 3.82 M/UL (4.20-5.40) L Hemoglobin 11.2 G/DL (12.0-16.0) L Hematocrit 34.5 % (37.0-47.0) L Mean Corpuscular Volume 90 FL (80-99) Mean Corpuscular Hemoglobin 29.4 PG (27.0-31.0) Mean Corpuscular Hemoglobin Concent 32.6 G/DL (32.0-36.0) Red Cell Distribution Width 12.3 % (11.6-14.8) Platelet Count 186 K/UL (150-450) Mean Platelet Volume 9.1 FL (6.5-10.1) Neutrophils (%) (Auto) % (45.0-75.0) Lymphocytes (%) (Auto) % (20.0-45.0) Monocytes (%) (Auto) % (1.0-10.0) Eosinophils (%) (Auto) % (0.0-3.0) Basophils (%) (Auto) % (0.0-2.0) Differential Total Cells Counted 100 Neutrophils % (Manual) 67 % (45-75) Lymphocytes % (Manual) 21 % (20-45) Monocytes % (Manual) 12 % (1-10) H Eosinophils % (Manual) 0 % (0-3) Basophils % (Manual) 0 % (0-2) Band Neutrophils 0 % (0-8) Platelet Estimate Adequate Platelet Morphology Normal Prothrombin Time 20.5 SEC (9.30-11.50) H Prothromb Time International Ratio 2.0 (0.9-1.1) H Sodium Level 140 MMOL/L (136-145) Potassium Level 3.5 MMOL/L (3.5-5.1) Chloride Level 102 MMOL/L (98-107) Carbon Dioxide Level 35 MMOL/L (21-32) H Anion Gap 3 mmol/L (5-15) L Blood Urea Nitrogen 15 mg/dL (7-18) Creatinine 0.7 MG/DL (0.55-1.30) Estimat Glomerular Filtration Rate mL/min (>60) Glucose Level 99 MG/DL (74-106) Calcium Level 8.4 MG/DL (8.5-10.1) L Current Medications Medications (Trade) Dose Ordered Sig/Lashay Route PRN Reason Start Time Stop Time Status Last Admin Dose Admin Allopurinol (Zyloprim) 100 mg DAILY ORAL 04/06/18 09:00 04/30/18 08:59 04/06/18 08:41 Atenolol (Tenormin) 25 mg DAILY ORAL 04/06/18 09:00 04/30/18 08:59 04/06/18 08:41 Atorvastatin Calcium (Lipitor) 20 mg BEDTIME ORAL 04/05/18 21:00 04/29/18 20:59 04/05/18 20:49 Dextrose (Dextrose 50%) 25 ml STAT PRN IV Hypoglycemia 04/05/18 12:00 05/03/18 11:59 Dextrose (Dextrose 50%) 50 ml STAT PRN IV Hypoglycemia 04/05/18 12:00 05/05/18 11:59 Escitalopram Oxalate (Lexapro) 10 mg DAILY ORAL 04/06/18 09:00 05/02/18 10:59 04/06/18 08:41 Hydrochlorothiazide (Hydrodiuril) 25 mg DAILY ORAL 04/06/18 09:00 04/30/18 08:59 04/06/18 08:41 Insulin Aspart (NovoLOG) BEFORE MEALS AND HS SUBQ 04/05/18 12:30 05/01/18 12:29 04/05/18 20:50 Ondansetron HCl (Zofran) 4 mg Q6H PRN IVP Nausea & Vomiting 04/05/18 12:00 04/29/18 11:59 Quetiapine Fumarate (SEROquel) 12.5 mg Q4H PRN ORAL agitation 04/05/18 12:00 05/03/18 15:59 Warfarin Sodium (Coumadin per pharmacy) 1 ea DAILY PRN MISC Per rx protocol 04/05/18 12:00 05/05/18 11:59 Warfarin Sodium (Coumadin) 3 mg COUMADIN ONCE ORAL 04/06/18 17:00 04/06/18 17:01 Alexia Herron M.D. Apr 06, 2018 16:11
[2018-04-06] MEDS ORDERED: Warfarin Sodium 3mg ORAL ONE (17:00)
--- NOTE | 2018-04-06 17:47 | Pulmonology Progress Note ---
Assessment/Plan Problems: (1) Angioedema (2) Acute respiratory failure (3) Longstanding persistent atrial fibrillation (4) Bronchitis (5) Pulmonary hypertension (6) Obesity (7) NSTEMI (non-ST elevated myocardial infarction) (8) Disoriented (9) Leukocytosis (10) Diarrhea Assessment/Plan -Optimize pulmonary hygiene/mobilize as tolerated -PRN O2 -Off steroids -No ACEi -Aspiration precautions -Monitor MS -DVT Px: A/C -F/U cards and renal recs -Patient stable from a respiratory standpoint, will sign off and follow peripherally Subjective Allergies: Coded Allergies: SULFA (SULFONAMIDE ANTIBIOTICS) (Verified Allergy, Severe, Itching, ) Subjective AFVSS, on RA, diarrhea resolved and WCt better, less agitated, awake and alert No F/C/CP/SOB/N/V/D/C, koki PO, Objective Last 24 Hour Vital Signs Date Time Temp Pulse Resp B/P (MAP) Pulse Ox O2 Delivery O2 Flow Rate FiO2 04/06/18 16:00 98.4 59 20 161/73 (102) 92 98.4 04/06/18 12:00 98.0 72 18 130/60 (83) 94 98.0 04/06/18 08:41 76 127/61 04/06/18 08:00 Room Air 04/06/18 08:00 98.4 76 20 127/61 (83) 94 98.4 04/06/18 04:03 96.8 70 20 159/83 (108) 95 96.8 70 70 04/06/18 00:36 98.8 65 20 171/83 (112) 95 98.8 65 65 04/05/18 21:00 Room Air 04/05/18 19:45 97.9 66 20 154/96 (115) 97 97.9 66 66 Intake and Output 04/05/18 04/06/18 19:00 07:00 Intake Total 620 ml 300 ml Balance 620 ml 300 ml Intake Oral 620 ml 300 ml # Voids 3 2 # Bowel Movements 4 General Appearance: WD/WN, no acute distress HEENT: normocephalic, atraumatic, anicteric, mucous membranes moist Respiratory/Chest: chest wall non-tender, lungs clear, normal breath sounds, no respiratory distress, no accessory muscle use Cardiovascular: normal peripheral pulses, normal rate, regular rhythm Abdomen: normal bowel sounds, soft, non tender, no organomegaly, non distended , no mass Extremities: no cyanosis, no clubbing, no edema Microbiology Date/Time Source Procedure Growth Status 04/05/18 17:20 Stool Clostridium difficile Toxin Assay - Final Complete Laboratory Tests 04/06/18 05:55: White Blood Count 15.4H, Red Blood Count 3.82L, Hemoglobin 11.2L, Hematocrit 34.5L, Mean Corpuscular Volume 90, Mean Corpuscular Hemoglobin 29.4, Mean Corpuscular Hemoglobin Concent 32.6, Red Cell Distribution Width 12.3, Platelet Count 186, Mean Platelet Volume 9.1, Neutrophils (%) (Auto) , Lymphocytes (%) ( Auto) , Monocytes (%) (Auto) , Eosinophils (%) (Auto) , Basophils (%) (Auto) , Differential Total Cells Counted 100, Neutrophils % (Manual) 67, Lymphocytes % ( Manual) 21, Monocytes % (Manual) 12H, Eosinophils % (Manual) 0, Basophils % ( Manual) 0, Band Neutrophils 0, Platelet Estimate Adequate, Platelet Morphology Normal, Prothrombin Time 20.5H, Prothromb Time International Ratio 2.0H, Sodium Level 140, Potassium Level 3.5, Chloride Level 102, Carbon Dioxide Level 35H, Anion Gap 3L, Blood Urea Nitrogen 15, Creatinine 0.7, Estimat Glomerular Filtration Rate , Glucose Level 99, Calcium Level 8.4L Current Medications Medications (Trade) Dose Ordered Sig/Lashay Route PRN Reason Start Time Stop Time Status Last Admin Dose Admin Allopurinol (Zyloprim) 100 mg DAILY ORAL 04/06/18 09:00 04/30/18 08:59 04/06/18 08:41 Atenolol (Tenormin) 25 mg DAILY ORAL 04/06/18 09:00 04/30/18 08:59 04/06/18 08:41 Atorvastatin Calcium (Lipitor) 20 mg BEDTIME ORAL 04/05/18 21:00 04/29/18 20:59 04/05/18 20:49 Dextrose (Dextrose 50%) 25 ml STAT PRN IV Hypoglycemia 04/05/18 12:00 05/03/18 11:59 Dextrose (Dextrose 50%) 50 ml STAT PRN IV Hypoglycemia 04/05/18 12:00 05/05/18 11:59 Escitalopram Oxalate (Lexapro) 10 mg DAILY ORAL 04/06/18 09:00 05/02/18 10:59 04/06/18 08:41 Hydrochlorothiazide (Hydrodiuril) 25 mg DAILY ORAL 04/06/18 09:00 04/30/18 08:59 04/06/18 08:41 Insulin Aspart (NovoLOG) BEFORE MEALS AND HS SUBQ 04/05/18 12:30 05/01/18 12:29 04/05/18 20:50 Ondansetron HCl (Zofran) 4 mg Q6H PRN IVP Nausea & Vomiting 04/05/18 12:00 04/29/18 11:59 Quetiapine Fumarate (SEROquel) 12.5 mg Q4H PRN ORAL agitation 04/05/18 12:00 05/03/18 15:59 Warfarin Sodium (Coumadin per pharmacy) 1 ea DAILY PRN MISC Per rx protocol 04/05/18 12:00 05/05/18 11:59 Alfonso Huff MD Apr 06, 2018 17:47
[2018-04-06 19:22] VITALS: BP 149/70
[2018-04-06] MEDS: Atorvastatin 20mg tab ORAL SCH (21:08)
[2018-04-06] MEDS ORDERED: Tubing IV Secondary IV ONE (21:49)
--- NOTE | 2018-04-09 11:12 | Discharge Summary ---
Discharge Summary Discharge Summary _ DATE OF ADMISSION: 03/30/2018 DATE OF DISCHARGE: 04/06/2018 REASON FOR ADMISSION: 72y/old female,with past medical history of hypertension, on Lisinopril, presented to ED with tongue swelling. Tongue was severely swollen with concern for airway compromise. After discussion with patient and her daughter for elective intubation due to concern for airway compromise, and their agreement, patient was intubated without complication. propofol given for sedation Labs were essentially stable. CXR revealed no acute cardiopulmonary pathology. Troponin negative. In ED patient was started on IVF, given IV Solumedrol, Pepcid and Benadryl. Patient was admitted with diagnoses of angioedema,respiratory failure,requiring intubation, atral fibrilaltion, HTN, . CONSULTANTS: special education tutor Dr. [facility] Herron psychiatrist HOSPITAL COURSE: Patient admitted to ICU Ventilator support provided Pulmonary toilet provided Patient started on IV steroids and Pepcid. Patient noted to be in atrial fibrillation initially , on beta jimbo and anticoagulation provided with Coumadin and heparin per pharmacy to keep INR in therapeutic range. Patient was able to be extubated on 04/01. At that time noted elevated troponin 2.976. Prototype Carpenter closely followed, troponin trending down . Patient was already on heparin and beta jimbo. Echocardiogram revealed preserved ejection fraction 55-60% and right ventricular systolic pressure of 58 , consistent with moderate pulmonary hypertension. According to special education tutor, no indication for cardiac catheterization. Venous duplex bilateral lower extremity was negative. Statin was continued. Blood pressure was managed with beta jimbo and hydrochlorothiazide , remained stable a Steroids gradually tapered and changed to oral Blood sugar was managed with sliding scale of insulin INR reached therapeutic window. Heparin was discontinued , Coumadin continued to keep INR in therapeutic range. Post extubation supplemental oxygen provided as needed to keep pulse oximetry above 92% Pulmonary toilet provided as needed . [employer] Worker closely followed. DVT prophylaxis provided. Antitussive provided as needed. Chest x-ray revealed no evidence of cardiopulmonary pathology. Noted leukocytosis. Infectious disease followed. Patient off steroids , status post short pulse of steroids. Leukocytosis trending down. Blood culture negative, stool for C. difficile negative. Per infectious disease specialist ,no evidence of infection, leukocytosis was likely reactive secondary to steroids. Patient afebrile. Patient clinically improved. No AYYA inhibitor in future . Patient with persistent, likely chronic atrial fibrillation. Continue anticoagulation and beta jimbo upon discharge. Renal parameters and electrolytes were closely monitored. Electrolytes replaced as needed. Nephrotoxins were avoided. Psychiatrist seen and evaluated the patient ,diagnosed patient with encephalopathy and optimize psychiatric medication regimen. Patient was ready for discharge back to half-way facility. FINAL DIAGNOSES: Angioedema secondary to YAYA inhibitor Acute respiratory failure secondary to severe angioedema, resulting in oral intubation Status post extubation Persistent chronic atrial fibrillation Elevated troponin Probable NSTEMI Hypertension Hyperlipidemia Bronchitis Pulmonary hypertension Obesity Encephalopathy DISCHARGE MEDICATIONS: See Medication Reconciliation list. DISCHARGE INSTRUCTIONS: Patient was discharged to half-way facility follow-up with medical doctor at the facility. I have been assigned to dictate discharge summary for this account. I was not involved in the patient's management. Cristel Gandhi NP Apr 09, 2018 11:11
== END 2018-04-06 21:50 | DRG 208 ==
LOC: EDBD 11:23 → EMR 11:35 → ICU 11:39 → EDBEDREQ 12:28 → 2W 04-02 21:23 → 2E 04-03 15:32 → 4W 04-05 11:02
DX: J96.00 Acute respiratory failure, unspecified whether with hypoxia or hypercapnia (principal); G93.40 Encephalopathy, unspecified; I21.4 Non-ST elevation (NSTEMI) myocardial infarction; I48.1 Persistent atrial fibrillation; T78.3XXA Angioneurotic edema, initial encounter; T46.4X5A Adverse effect of angiotensin-converting-enzyme inhibitors, initial encounter; Y92.129 Unspecified place in nursing home as the place of occurrence of the external cause; E66.9 Obesity, unspecified; Z68.37 Body mass index [BMI] 37.0-37.9, adult; I10 Essential (primary) hypertension; E78.5 Hyperlipidemia, unspecified; G62.9 Polyneuropathy, unspecified; K21.9 Gastro-esophageal reflux disease without esophagitis; J40 Bronchitis, not specified as acute or chronic; F03.90 Unspecified dementia, unspecified severity, without behavioral disturbance, psychotic disturbance, mood disturbance, and anxiety; D72.829 Elevated white blood cell count, unspecified; E87.6 Hypokalemia; R19.7 Diarrhea, unspecified; I27.20 Pulmonary hypertension, unspecified
CPT/HCPCS: 36415; 36600; 70360; 71045; 74018; 80048; 80053; 82550; 82553; 82803; 82962; 83880; 84478; 84484; 85007; 85025; 85610; 85651; 85730; 86140; 86160; 86162; 86332; 86850; 86900; 86901; 87040; 87081; 87324; 90732; 93005; 93306; 93970; 94002; 94003; 94664; 94760; 99291; J1815; J8499